=== PATIENT | female | born 1965 | race Caucasian/White ===

== ENCOUNTER 2017-11-12 10:11 | Outpatient (REF) | payer OTHER, SELFPAY ==
[2017-11-12 21:32] LABS: ALT 97 U/L (12-78); AST 51 U/L (15-37); Albumin 4.2 g/dL (3.4-5.0); Alkaline Phosphatase 166 U/L (46-116); Anion Gap 10.4 mmol/L (3-11); BUN 10 mg/dL (7-18); Bilirubin, Total 0.6 mg/dL (0.2-1.0); CO2 27.6 mmol/L (21.0-32.0); CREATININE 0.84 mg/dL (0.55-1.02); Calcium 10.7 mg/dL (8.5-10.1); Chloride 104 mmol/L (98-107); Glucose 94 mg/dL (70-100); Sodium 142 mmol/L (136-145); Total Protein 7.4 g/dL (6.4-8.2)
== END 2017-11-12 10:12 ==
LOC: NCHCN 10:11
PROVIDERS: PCP Physician Assistant; Visit Provider Physician Assistant Medical
DX: I10 Essential (primary) hypertension (principal); R79.89 Other specified abnormal findings of blood chemistry
CPT/HCPCS: 80053

== ENCOUNTER 2018-05-26 13:48 | Outpatient (REF) | payer OTHER, SELFPAY ==
[2018-05-26 18:41] LABS: TSH 3.18 uIU/mL (0.358-3.74)
== END 2018-05-26 14:08 ==
LOC: NCHCN 13:48
PROVIDERS: PCP Physician Assistant; Visit Provider Physician Assistant Medical
DX: E03.9 Hypothyroidism, unspecified (principal)
CPT/HCPCS: 84443

== ENCOUNTER 2018-11-25 10:52 | Outpatient (REF) | payer OTHER, SELFPAY ==
[2018-11-25 20:56] LABS: ALT 94 U/L (12-78); AST 51 U/L (15-37); Alkaline Phosphatase 175 U/L (46-116); Anion Gap 8.4 mmol/L (3-11); BUN 10 mg/dL (7-18); Bilirubin, Total 0.5 mg/dL (0.2-1.0); CO2 28.6 mmol/L (21.0-32.0); CREATININE 0.74 mg/dL (0.55-1.02); Calcium 11.1 mg/dL (8.5-10.1); Calculated LDL 125 mg/dL; Chloride 105 mmol/L (98-107); Cholesterol 204 mg/dL (50-200); Glucose 89 mg/dL (70-100); HDL Cholesterol 57 mg/dL (40-60); Potassium 4.4 mmol/L (3.5-5.1); Sodium 142 mmol/L (136-145); TSH (W/Ref FT4) 1.93 uIU/mL (0.36-3.74); Total Protein 7.2 g/dL (6.4-8.2); Triglyceride 112 mg/dL (30-150)
== END 2018-11-25 11:12 ==
LOC: NCHCN 10:52
PROVIDERS: PCP Physician Assistant; Visit Provider Nurse Practitioner Family
DX: I10 Essential (primary) hypertension (principal); R79.89 Other specified abnormal findings of blood chemistry; E03.9 Hypothyroidism, unspecified; Z13.220 Encounter for screening for lipoid disorders
CPT/HCPCS: 80053; 80061; 83721; 84443

== ENCOUNTER 2020-02-07 11:37 | Outpatient (REF) | payer OTHER, SELFPAY ==
[2020-02-07 19:58] LABS: ALT 59 U/L (14-59); AST 37 U/L (15-37); Albumin 4.2 g/dL (3.4-5.0); Alkaline Phosphatase 207 U/L (46-116); BUN 13 mg/dL (7-18); CREATININE 0.85 mg/dL (0.55-1.02); Calcium 11.4 mg/dL (8.5-10.1); Calculated LDL 142 mg/dL (<100); Chloride 105 mmol/L (98-107); Cholesterol 220 mg/dL (<200); Glucose 87 mg/dL (74-106); HDL Cholesterol 56 mg/dL (40-60); Potassium 4.6 mmol/L (3.5-5.1); Sodium 138 mmol/L (136-145); TSH 1.99 uIU/mL (0.36-3.74); Total Protein 7.5 g/dL (6.4-8.2); Triglyceride 113 mg/dL (<150)
[2020-02-07 20:14] LABS: Hemoglobin A1C 5.5 % (<5.7)
[2020-02-07 21:52] LABS: Bilirubin, Total 0.4 mg/dL (0.2-1.0)
== END 2020-02-07 11:57 ==
LOC: NCHCN 11:37
PROVIDERS: PCP Physician Assistant; Visit Provider Nurse Practitioner Family
DX: Z13.220 Encounter for screening for lipoid disorders (principal); I10 Essential (primary) hypertension; E03.9 Hypothyroidism, unspecified; R73.09 Other abnormal glucose
CPT/HCPCS: 80053; 80061; 83036; 84443

== ENCOUNTER 2020-07-12 12:59 | Outpatient (REF) | payer OTHER, SELFPAY | END 2020-07-12 13:00 | disposition home or self-care (01) | LOC: NCHCN 12:59 | PROVIDERS: PCP Physician Assistant; Visit Provider Internal Medicine | DX: N30.00 Acute cystitis without hematuria (principal) | CPT/HCPCS: 87086 ==

== ENCOUNTER 2020-10-31 20:12 | Outpatient (REF) | payer OTHER, SELFPAY ==
[2020-10-31 19:59] LABS: Bilirubin Negative (Negative); Blood Negative (Negative); Clarity Clear (Clear); Glucose Negative (Negative); Ketones Negative (Negative); Leukocyte Esterase Trace (Negative); Nitrite Negative (Negative); Urobilinogen 0.2 EU/dL (Up TO 0.2); pH 7.5 (5-8)
[2020-10-31 20:08] LABS: Bacteria Rare HPF (Negative); C & S Indicated? Yes; Casts Negative LPF (Negative); Crystals Negative HPF (Negative); Epithelial Cells Rare HPF (Negative); Mucus Negative (Negative); RBC Negative HPF (0-2); WBC 0-2 HPF (0-5)
== END 2020-10-31 20:13 | disposition home or self-care (01) ==
LOC: NCHCN 20:12
PROVIDERS: PCP Physician Assistant; Visit Provider Nurse Practitioner Family
DX: R30.0 Dysuria (principal)
CPT/HCPCS: 81003; 81015; 87086

== ENCOUNTER 2021-02-01 14:58 | Outpatient (REF) | payer OTHER, SELFPAY ==
[2021-02-01 20:10] LABS: ALT 63 U/L (14-59); AST 36 U/L (15-37); Albumin 4.2 g/dL (3.4-5.0); Alkaline Phosphatase 204 U/L (46-116); Anion Gap 7.4 mmol/L (3-11); BUN 11 mg/dL (7-18); Bilirubin, Total 0.6 mg/dL (0.2-1.0); CO2 29.6 mmol/L (21.0-32.0); CREATININE 0.7 mg/dL (0.55-1.02); Calculated LDL 123 mg/dL (<100); Chloride 105 mmol/L (98-107); Cholesterol 205 mg/dL (<200); Glucose 86 mg/dL (74-106); HDL Cholesterol 64 mg/dL (40-60); Potassium 4.8 mmol/L (3.5-5.1); Sodium 142 mmol/L (136-145); TSH (W/Ref FT4) 1.48 uIU/mL (0.36-3.74); Total Protein 7.5 g/dL (6.4-8.2); Triglyceride 94 mg/dL (<150)
[2021-02-01 20:27] LABS: Calcium 11.6 mg/dL (8.5-10.1)
== END 2021-02-01 14:59 | disposition home or self-care (01) ==
LOC: NCHCN 14:58
PROVIDERS: PCP Physician Assistant; Visit Provider Nurse Practitioner Family
DX: I10 Essential (primary) hypertension (principal); E03.9 Hypothyroidism, unspecified
CPT/HCPCS: 80053; 80061; 84443

== ENCOUNTER 2021-06-21 16:45 | Outpatient (REF) | payer OTHER, SELFPAY | END 2021-06-21 16:46 | disposition home or self-care (01) | LOC: NCHCN 16:45 | PROVIDERS: PCP Physician Assistant; Visit Provider Nurse Practitioner Family | DX: R39.15 Urgency of urination (principal); B37.0 Candidal stomatitis | CPT/HCPCS: 87070; 87086 ==

== ENCOUNTER 2021-09-18 19:28 | Outpatient (REF) | payer OTHER, SELFPAY ==
--- OUTSIDE RECORDS SUMMARY | 2021-09-18 19:31 | XMS_ITS ---
:1965 Author Care Team Providers Name Role Phone TIFFANY ESPARZA MD General Surgeon Unavailable CHE HENNING NP Primary Care Provider [phone] UTNG MEHTA MD Primary Care Provider [phone] Allergies Code Code System Name Reaction Severity Status Onset 20340718 RxNorm Compazine Confusion Severe Active 07/13/2021 1406 RxNorm Benzoin Rash ? Active ? 221445 RxNorm Cipro ? ? Active ? 2670 RxNorm Codeine ? ? Active ? 1010013 RxNorm Latex Hives ? Active ? Rash ? Active ? 444658 RxNorm Levaquin Rash ? Active ? 610180 RxNorm Macrobid ? ? Active ? Sulfa (Sulfonamide ? ? Active ? Antibiotics) 35252 RxNorm Tetracaine Rash ? Active ? Medications Name Status Start Date Stop Date ? ? amoxicillin 250 mg capsule Completed ? 12/11 TAKE ONE CAPSULE BY MOUTH THREE TIMES A DAY FOR 4 DAYS amoxicillin 500 mg capsule Completed ? 12/11 TAKE ONE CAPSULE BY MOUTH THREE TIMES A DAY FOR 10 DAYS bisoprolol fumarate 10 mg tablet Completed ? 12/11/2020 bisoprolol fumarate 5 mg tablet Completed ? 12/04/2017 Calcium 600 + D(3) 600 mg-10 mcg (400 unit) tablet Active ? Not available Take by oral route. Cipro 250 mg tablet Completed 07/04/2004 07/04/2004 1 (one) Tablet: BID Compazine 10 mg tablet Completed ? Take 1 tablet every 6 hours by oral route as needed. Dilaudid 2 mg tablet Completed ? 08/08/2021 Take 2 tablets every 4 hours by oral route as needed. doxycycline hyclate 100 mg tablet Completed ? 12/04/2017 Elderberry Active ? Not available fluoxetine 20 mg capsule Completed ? 021 Take 1 mg every day by oral route for 90 days. hydrochlorothiazide 12.5 mg tablet Completed ? 12/04/2017 hydrochlorothiazide 25 mg tablet Completed ? 12/11/2020 Take 1 tablet every day by oral route for 90 days. ibuprofen 800 mg tablet Active ? Not avai lable Take 1 tablet every 8 hours by oral route as needed. Imitrex 25 mg tablet Completed 03/16/2004 05/17/2005 2 (two) Tablet: QD Keflex 500 mg capsule Completed 07/04/2004 04/29/2005 1 Cap: QID levothyroxine 112 mcg tablet Active ? Not available TAKE ONE TABLET BY MOUTH EVERY DAY lorazepam 0.5 mg tablet Active ? Not avai lable TAKE ONE TABLET BY MOUTH TWICE A DAY NEEDED FOR ANXIETY losartan 25 mg tablet Completed ? 12/11/2020 TAKE ONE TABLET BY MOUTH EVERY DAY metoprolol succinate ER 100 mg tablet,extended release 24 hr Act solis ? Not available TAKE ONE TABLET BY MOUTH EVERY DAY metoprolol succinate ER 50 mg tablet,extended release 24 hr Comp leted ? 12/11/2020 TAKE ONE TABLET BY MOUTH EVERY MORNING metoprolol tartrate 50 mg tablet Completed ? 12/11/2020 TAKE ONE TABLET BY MOUTH TWICE A DAY nitrofurantoin monohydrate/macrocrystals 100 mg capsule Complete d ? 12/11/2020 TAKE ONE CAPSULE BY MOUTH TWICE A DAY FOR 5 DAYS [place] 7.5 mg-325 mg tablet Completed 02/06/201206/16 1 Tablet: every six hours, as needed ondansetron 4 mg disintegrating tablet Completed ? 12/11/2020 Ortho Micronor 0.35 mg tablet Completed 07/30/2005 1 (one) Tablet: Daily oxybutynin chloride 5 mg tablet Completed ? 12/11/2020 TAKE ONE TABLET BY MOUTH TWICE A DAY oxybutynin chloride ER 10 mg tablet,extended release 24 hr Compl eted ? 12/11/2020 TAKE ONE TABLET BY MOUTH EVERY DAY pantoprazole 20 mg tablet,delayed release Active ? Not available TAKE ONE TABLET BY MOUTH EVERY DAY NEEDED phenazopyridine 200 mg tablet Completed ? TAKE ONE TABLET BY MOUTH THREE TIMES A DAY NEEDED FOR URINAR Y DISCOMFORT Reglan 10 mg tablet Completed 12/17/2011 05/17/2016 1 Tablet: tid - three times a day prn spironolactone 25 mg tablet Completed ? 11/14 TAKE ONE TABLET BY MOUTH EVERY DAY spironolactone 50 mg tablet Active ? Not available TAKE ONE TABLET BY MOUTH EVERY MORNING sucralfate 1 gram tablet Completed ? 021 tamsulosin 0.4 mg capsule Active ? Not av ailable Take 1 capsule every day by oral route for 10 days. Topicort 0.25 % topical ointment Completed 07/25/2009 01/31/2010 1 (one) Application(s): twice daily tramadol 50 mg tablet Completed ? 12/11/2020 triamcinolone acetonide 0.1 % topical cream Completed ? 12/11/2020 APPLY TOPICALLY TO AFFECTED AREA S OF UMBILICUS TWO TIMES A DAY Tylenol-Codeine #3 300 mg-30 mg tablet Completed 5 05/17/2005 1 (one) Tablet: Q4-6 hours PRN Problems Name Status Onset Date Source ? Gastroesophageal Reflux Disease Active 12/04/2017 ? Hypothyroidism Active ? History Migraine Active ? History Seasonal Allergic Rhinitis Active ? Histo ry Acute Vaginitis Active ? History Female Genital Organ Symptoms Active ? Hi story Idiopathic Osteoarthritis Active ? Histor y Arthralgia of the Ankle And/or Foot Active ? History Plantar Fascial Fibromatosis Active ? His tory Nausea Active ? History Urinary Incontinence Active ? History Traumatic Dislocation of Knee Joint Active ? History Hyperlipidemia Screening Active ? History Specialized Medical Examination Active ? History Pain of Left Shoulder Joint Active ? Hist ory Long-term Current Use of Drug Therapy Active ? History Procedures Date Name Performed by ? 02/27/2012 EGD/Endoscopy Information not avai lable Notes: mild hiatal hernia, antral gastritis, duodenitis of bulb. 2009 sm hiatal hernia. 2004 severe gastritis. 02/06/2012 Knee Arthroscopy/surgery Information not available Notes: with medial femoral condyle cho ndroplasty 04/11/2010 Total Vaginal Hysterectomy Information n ot available Notes: LAVH with TVT 04/14/2005 Colonoscopy Information not avai lable Notes: normal 02/25/2005 Carpal Tunnel Release Open Information n ot available Notes: Right 07/24/2004 Laparoscopy Information not avai lable Notes: Evacuation Pelvic Hematoma 06/21/2004 Oophorectomy Information not avai lable Notes: Laparoscopic left oophorectomy 04/08/2001 Cholecystectomy Information not avai lable 04/14/1984 Appendectomy Information not avai lable ? Parathyroidectomy Information not avai lable Notes: right tumor removed ? Tonsillectomy Information not avai lable Notes: age 16 12/11/2020 XR, Knee, 4 or More View [facility] [address] [place] [address] (Work Place) Results Lab Results Date Name Specimen Result Interpretation Description Value Range Status Address ? 08/22/2021 Creatinine, UR ? Vol, 24HR 1380 mL ? Fin al [facility] (Internal[facility] : [address] ? ? UR ? Crea, U 111 mg/dL 3-125 Final [facility] mg/dL [facility] (Internal) : [address] ? ? UR ? Crea, 1529 600-25 Corrected [facility] 24HR U mg/24HR 00 [facility] mg/24H Hospital L ab R (Internal) : [address] 08/22/2021 Magnesium, UR ? Vol, 24HR 1380 mL ? Geovanna l [facility] (Internal[facility] : [address] ? ? UR ? mg, U 10.6 1.0-13 Final [facility] mg/dL .0 [facility] mg/dL Hospital L ab (Internal) : [address] ? ? UR ? mg, 24HR 146 24-255 Corrected Nort h U mg/24HR mg/24H [facility] R [facility] L ab (Internal) : [address] 08/22/2021 Phosphorus, UR ? Vol, 24HR 1380 mL ? Fin al [facility] ([facility] : [address] ? ? UR High Phos, U 106.7 20.0-6 Final [facility] mg/dL 0.0 [facility] mg/dL Hospital L ab (Internal) : [address] ? ? UR High Phos, 1472 400-13 Corrected [facility] 24HR U mg/24HR 00 [facility] mg/24H Hospital L ab R (Internal) : [address] 08/22/2021 Calcium, UR ? Vol, 24HR 1380 mL ? Final [facility] : [address] ? ? UR High Ca, U 25.8 2.0-18 Final [facility] mg/dL .0 [facility] mg/dL Hospital L ab (Internal) : [address] ? ? UR High Ca, 24HR 356 42-353 Corrected Nort h U mg/24HR mg/24H [facility] R [facility] L [facility] (Internal) : [address] 08/22/2021 Sodium, UR ? Vol, 24HR 1380 mL ? Final [facility] : [address] ? ? UR High Na, U 117 20-110 Final [facility] mmol/L mmol/L [facility] (Internal) : [address] ? ? UR ? Na, 24HR 161 40-220 Corrected Nort h U mmol/24h mmol/2 [facility] 4h Hospital L ab (Internal) : [address] 08/22/2021 Uric Acid, UR ? Vol, 24HR 1380 mL ? Geovanna l [facility] : [address] ? ? UR ? Uric 46.3 ? Final North Acid, U mg/dL [facility] (Internal) : [address] ? ? UR ? Urca, 639 150-99 Final North 24HR U mg/24HR 0 [facility] mg/24H Hospital L ab R (Internal) : [address] 08/22/2021 Oxalate, UR ? Oxalate, 0.22 0.11 - Final N orth Quantitative 24 hr, U mmol/24 h 0.46 [facility] , 24-Hour (Mmol/24 mmol/2 [facility] Urine hr) 4 h (Internal) : [address] ? ? UR ? Oxalate, 19.4 9.7 - Final [facility] 24 hr, U mg/24 h 40.5 [facility] (mg/24 hr) mg/24 Hospit al Lab h (Internal) : [address] ? ? UR ? Collectio 24 h ? Final [facility] n Duration Countr y Hospital L ab (Internal) : [address] ? ? UR ? Urine 1380 mL ? Final [facility] Volume [facility] (Internal[facility] : [address] 08/22/2021 Citrate, UR High Citrate 1232 406 - Final No rth Quantitative Excretion, mg/24 h 1191 [facility] , 24-Hour 24 hr, U mg/24 [facility] Urine h (Internal) : [address] t ? ? UR ? Collectio 24 h ? Final [place] n Duration Countr y Hospital L ab (Internal) : [address] t ? ? UR ? Urine 1380 mL ? Final [place] Volume [facility] L [facility] (Internal) : [address] 08/08/2021 Culture UR ? Final microbiol ? Final No rth ([place] [facility]), results Hospital Lab Urine (Internal) : [address] 08/08/2021 Urinalysis, Urine ? Color Yellow ? ? P _urology: Dipstick, clean 41 Medi mary Reflex Micro catch [facility] ? ? Urine ? Appearanc Slightly ? ? P_ur ology: clean e Cloudy 41 [facility] ? ? Urine ? Glucose Normal ? ? P_urolog y: clean 41 [facility] ? ? Urine ? Bilirubin Negative ? ? P_ur ology: clean 41 [facility] ? ? Urine ? Ketones Negative ? ? P_urol ogy: clean 41 [facility] ? ? Urine ? Specific 1.015 ? ? P_urolo gy: clean Counce 41 [employer] [facility] ? ? Urine ? Blood Negative ? ? P_urolog y: clean 41 [facility] ? ? Urine ? Ph 6.5 ? ? P_urology: clean 41 [facility] ? ? Urine ? Protein Negative ? ? P_urol ogy: clean 41 [facility] ? ? Urine ? Urobilino 0.2 ? ? P_urol ogy: clean gen 41 [facility] ? ? Urine ? Nitrite negative ? ? P_urol ogy: clean 41 [facility] ? ? Urine ? Leukocyte Trace ? ? P_urol ogy: clean Esterase 41 Medic al [employer] [facility] 07/17/2021 Urinalysis, UR ? UA-color pale pale Final [place] Dipstick, yellow yellow [facility] Reflex Micro Hosp ital Lab (Internal) : [address] [place] ? ? UR ? UA-appear clear clear Final [facility] L ab (Internal) : [address] [place] ? ? UR ? UA-spec 1.010 1.003- Final [place] Grav 1.035 [facility] L [facility] (Internal) : [address] [place] ? ? UR ? UA-pH 7.0 [pH] 4.6-8. Final [place] 0 [pH] [facility] L ab (Internal) : [address] [place] ? ? UR ABNORMA UA-leuk small negati Final [facility] (Internal) : [address] [place] ? ? UR ? UA-nitrit negative negati Final [facility] L ab (Internal) : [address] [place] ? ? UR ? UA-prot negative negati Final [facility] ab (Internal) : [address] [place] ? ? UR ? UA-gluc negative negati Final [facility] ab (Internal) : [address] [place] ? ? UR ? UA-ketone negative negati Final [facility] L ab (Internal) : [address] [place] ? ? UR ? UA-urobil normal normal Final [facility] ab (Internal) : [address] [place] ? ? UR ? UA-bili negative negati [facility] ab (Internal) : [address] ? ? UR ? UA-blood negative negati Final [facility] ab (Internal) : [address] t 07/17/2021 Urinalysis, UR ABNORMA UA-WBC 5-10 0-3 Final [place] Microscopic L [hpf] [hpf] Count Hospital L ab (Internal) : [address] t ? ? UR ? UA-RBC 0-2 [hpf] 0-2 Final [place] [hpf] [facility] (Internal) : [address] t ? ? UR ABNORMA UA-bacter few [hpf] none Final No rth L ia seen [facility] [hpf] Hospital L ab (Internal) : [address] t ? ? UR ABNORMA UA-epithe few [hpf] none Final No rth L lial seen Country [hpf] Hospital L ab (Internal) : [address] t ? ? UR ? UA-mucus none seen none Final Nort h [hpf] seen Country [hpf] Hospital ab (Internal) : [address] 07/17/2021 Culture UR ? Final microbiol ? Final No rth ([place] [facility]), results Hospital Lab Urine (Internal) : [address] 07/19/2020 Urinalysis, UR ? UA-color yellow pale Final [place] Dipstick, yellow [facility] Reflex Micro Hosp ital Lab (Internal) : [address] t ? ? UR ? UA-appear clear clear Final [facility] ab (Internal) : [address] t ? ? UR ? UA-spec 1.020 1.003- Final [place] Grav 1.035 [facility] ab (Internal) : [address] t ? ? UR ? UA-pH 6.5 [pH] 4.6-8. Final [place] 0 [pH] [facility] ([facility] : [address] t ? ? UR ABNORMA UA-leuk small negati Final [facility] ab (Internal) : [address] t ? ? UR ? UA-nitrit negative negati Final [facility] ab (Internal) : [address] t ? ? UR ? UA-prot negative negati Final [facility] ab (Internal) : [address] ? ? UR ? UA-gluc negative negati Final [facility] ab (Internal) : [address] ? ? UR ? UA-ketone negative negati Final [facility] (Internal) : [address] ? ? UR ? UA-urobil normal normal Final [facility] (Internal) : [address] t ? ? UR ? UA-bili negative negati Final [facility] ab (Internal) : [address] ? ? UR ABNORMA UA-blood trace negati Final [facility]Internal[facility] : [address] 07/19/2020 Urinalysis, UR ABNORMA UA-WBC 3-5 [hpf] 0-3 Fin al [facility] Microscopic L [hpf] Count ry Hospital L ab (Internal) : [address] t ? ? UR ? UA-RBC 0-2 [hpf] 0-2 Final North [hpf] [facility] (Internal) : [address] t ? ? UR ? UA-bacter none seen none Final Nor th ia [hpf] seen Country [hpf] Hospital L ab (Internal) : [address] t ? ? UR ABNORMA UA-epithe few [hpf] none Final No rth L lial seen Country [hpf] Hospital L ab (Internal) : [address] t ? ? UR ? UA-mucus none seen none Final Nort h [hpf] seen [facility] [hpf] Hospital L ab (Internal) : [address] 07/19/2020 CBC W/ Auto BLD High Wbc 12.2 5.0-10 Final N orth Diff 10*3/uL .0 [facility] 10*3/u Hospital L ab L (Internal) : [address] t ? ? BLD High Rbc 5.45 4.10-5 Final North 10*6/uL .30 [facility] 10*6/u Hospital L ab L (Internal) : [address] t ? ? BLD High Hgb 16.6 g/dL 12.0-1 Final [place] 6.0 [facility] g/dL Hospital L ab (Internal) : [address] t ? ? BLD High Hct 49.2 % 37.0-4 Final [place] 7.0 % [facility] (Internal) : [address] t ? ? BLD ? Mcv 90.3 fL 80.0-9 Final [place] 6.0 fL [facility] (Internal) : [address] t ? ? BLD ? Mch 30.5 pg 26.0-3 Final [place] 2.0 pg [facility] (Internal) : [address] ? ? BLD ? Mchc 33.7 g/dL 31.0-3 Final North 5.0 [facility] g/dL Hospital L ab (Internal) : [address] ? ? BLD ? Rdw 12.3 % 11.5-1 Final [facility] 4.5 % [facility] L ab (Internal) : [address] ? ? BLD ? Plt 233 130-45 Final North 10*3/uL 0 [facility] 10*3/u Hospital L ab L (Internal) : [address] [place] ? ? BLD ? Anc 7.84 ? Final [facility] 10*3/uL [facility] L [facility] (Internal) : [address] [place] [address] ? ? BLD ? Nlr 2.57 0.00-3 Final North .20 [facility] L [facility] (Internal) : [address] ? ? BLD ? Neutro 64.5 % 40.0-7 Final [facility] 5.0 % [facility] L [facility] (Internal) : [address] ? ? BLD ? Lymph 25.1 % 20.0-5 Final [facility] 0.0 % [facility] L [facility] (Internal) : [address] ? ? BLD ? Galax 8.9 % 2.0-10 Final North .0 % [facility] L [facility] (Internal) : [address] [place] ? ? BLD Low Eos 0.7 % 1.0-6. Final [facility] 0 % [facility] L [facility] (Internal) : [address] ? ? BLD ? Baso 0.5 % 0.0-1. Final [facility] 0 % [facility] L [facility] (Internal) : [address] ? ? BLD ? Ig 0.3 % 0.0-0. Final [facility] 9 % [facility] L [facility] (Internal) : [address] 07/19/2020 Lactic Acid, S ? La 1.0 0.7-2. Final North Blood mmol/L 1 [facility] mmol/L Hospital L ab (Internal) : [address] t 07/19/2020 CMP, Serum S ? g/r 98 mg/dL 74-106 Final North or Plasma mg/dL [facility] (Internal) : [address], [place] ? ? S ? Bun 12 mg/dL 7-17 Final [facility] mg/dL [facility] L [facility] (Internal) : [address] t ? ? S Low Crea 0.50 0.52-1 Final [facility] mg/dL .04 [facility] mg/dL Hospital L ab (Internal) : [address] t ? ? S High Ca 11.6 8.4-10 Final [facility] mg/dL .2 [facility] mg/dL Hospital L ab (Internal) : [address] t ? ? S ? Na 143 137-14 Final [facility] mmol/L 5 [facility] mmol/L Hospital L ab (Internal) : [address] t ? ? S ? K 4.3 3.5-5. Final [facility] mmol/L 1 [facility] mmol/L Hospital L ab (Internal) : [address] t ? ? S ? Cl 105 98-107 Final [facility] mmol/L mmol/L [facility] L [facility] (Internal) : [address] t ? ? S ? Tco2 25.0 22.0-3 Final [facility] mmol/L 0.0 [facility] mmol/L Hospital L ab (Internal) : [address] t ? ? S ? Tp 7.5 g/dL 6.3-8. Final North 2 g/dL [facility] (Internal) : [address] t ? ? S ? Alb 4.5 g/dL 3.5-5. Final [facility] 0 g/dL [facility] (Internal) : [address] t ? ? S ? Tbil 0.6 mg/dL 0.2-1. Final North 3 [facility] mg/dL Hospital L ab (Internal) : [address] t ? ? S High Alp 213 U/L 50-136 Final [facility] U/L [facility] L [facility] (Internal) : [address] t ? ? S High Alt 98 U/L 9-52 Final [facility] (Sgpt) U/L [facility] L [facility] (Internal) : [address] t ? ? S High Ast 65 U/L 14-36 Final North (Sgot) U/L [facility] L [facility] (Internal) : [address] 07/19/2020 Lipase, S ? Lip 124 U/L 23-300 Final Nort h Serum or U/L [facility] Plasma Hospital L ab (Internal) : [address] 07/19/2020 Culture UR ? Final microbiol ? Final No rth ([place] [facility]), results Hospital Lab Urine (Internal) : [address] 12/03/2017 CBC W/ Auto BLD - Wbc 8.1 5.0-10 Final N orth Diff 10*3/uL .0 [facility] 10*3/u Hospital L ab L (Internal) : [address] mar ? ? BLD High Rbc 5.37 4.10-5 Final [facility] 10*6/uL .30 [facility] 10*6/u Hospital L ab L (Internal) : [address] mar ? ? BLD High Hgb 16.3 g/dL 12.0-1 Final [place] 6.0 [facility] g/dL Hospital L ab (Internal) : [address] mar ? ? BLD High Hct 47.9 % 37.0-4 Final [facility] 7.0 % [facility] L [facility] (Internal) : [address] ? ? BLD - Mcv 89.2 fL 80.0-9 Final [place] 6.0 fL [facility] L [facility] (Internal) : [address] ? ? BLD - Mch 30.4 pg 26.0-3 Final [place] 2.0 pg [facility] L [facility] (Internal) : [address] mar ? ? BLD - Mchc 34.0 g/dL 31.0-3 Final North 5.0 [facility] g/dL Hospital L ab (Internal) : [address] mar ? ? BLD - Rdw 12.4 % 11.5-1 Final [facility] 4.5 % [facility] (Internal) : [address] mar ? ? BLD - Plt 213 130-45 Final [facility] 10*3/uL 0 [facility] 10*3/u Hospital L ab L (Internal) : [address] ? ? BLD - Anc 5.18 ? Final [facility] 10*3/uL [facility] L [facility] (Internal) : [address] ? ? BLD - Neutro 64.0 % 40.0-7 Final [facility] 5.0 % [facility] L [facility] (Internal) : [address] ? ? BLD - Lymph 26.5 % 20.0-5 Final [facility] 0.0 % [facility] L [facility] (Internal) : [address] ? ? BLD - Galax 8.4 % 2.0-10 Final North .0 % [facility] L [facility] (Internal) : [address] ? ? BLD Low Eos 0.4 % 1.0-6. Final [facility] 0 % [facility] L [facility] (Internal) : [address] ? ? BLD - Baso 0.5 % 0.0-1. Final [facility] 0 % [facility] L [facility] (Internal) : [address] ? ? BLD - Ig 0.2 % 0.0-0. Final [facility] 9 % [facility] L [facility] (Internal) : [address] 12/03/2017 CMP, Serum S - g/r 104 mg/dL 74-106 Final North or Plasma mg/dL [facility] L [facility] (Internal) : [address] ? ? S - Bun 12 mg/dL 7-17 Final [facility] mg/dL [facility] L [facility] (Internal) : [address] ? ? S - Crea 0.70 0.52-1 Final [facility] mg/dL .04 [facility] mg/dL Hospital L ab (Internal) : [address] ? ? S High Ca 11.5 8.4-10 Final [facility] mg/dL .2 [facility] mg/dL Hospital L ab (Internal) : [address] t ? ? S - Na 139 137-14 Final [facility] mmol/L 5 [facility] mmol/L Hospital L ab (Internal) : [address] ? ? S - K 3.6 3.5-5. Final [facility] mmol/L 1 [facility] mmol/L Hospital L ab (Internal) : [address] ? ? S - Cl 105 98-107 Final [facility] mmol/L mmol/L [facility] L [facility] (Internal) : [address] ? ? S - Tco2 25.0 22.0-3 Final [place] mmol/L 0.0 [facility] mmol/L Hospital L ab (Internal) : [address] ? ? S - Tp 8.0 g/dL 6.3-8. Final [place] 2 g/dL [facility] L [facility] (Internal) : [address] ? ? S - Alb 4.7 g/dL 3.5-5. Final [place] 0 g/dL [facility] L [facility] (Internal) : [address] ? ? S - Tbil 1.0 mg/dL 0.2-1. Final [place] 3 [facility] mg/dL Hospital L ab (Internal) : [address] ? ? S - Alp 129 U/L 50-136 Final [place] U/L [facility]Internal) : [address] ? ? S High Alt 120 U/L 9-52 Final [place] (Sgpt) U/L [facility] L [facility] (Internal) : [address] ? ? S High Ast 118 U/L 14-36 Final [place] (Sgot) U/L [facility] L [facility] (Internal) : [address] 12/03/2017 Lipase, S - Lip 83 U/L 23-300 Final [place] Serum or U/L [facility] Plasma [facility] L ab (Internal) : [address] 12/03/2017 D-dimer, PLASMA - Dimq <0.19 0.00-0 Final Nort h Quant, mg/L .50 [facility] Plasma mg/L Hospital L ab (Internal) : [address] Past Encounters 08/08/2021 Ureteric Stone; Kidney Stone; Pyuria; Mo rbid Obesity Bandar Garcia MD: [address] [place] [address], Ph. 07/17/2021 Lower Abdominal Pain Franck Sauceda MD: [address] [place] [phone], Ph. 12/11/2020 Pain in Right Knee Clyde Philippe MD: [address] [place] [address], [address], [place] [address], Ph. Social History Tobacco Smoking Status Never Smoker Vaccine List Vaccine Type COVID-19, mRNA, LNP-S, PF, 100 mcg/0.5 m L dose (Moderna) 06/29/2020?0.5 mL 07/27/2020?100 mcg influenza, seasonal, injectable Td (adult), adsorbed Plan of Care Reminders Provider Appointments None recorded. ? ? Lab None recorded. ? ? Referral None recorded. ? ? Procedures None recorded. ? ? Surgeries None recorded. ? ? Imaging None recorded. ? ? Vitals 08/08/2021 02:00PM Office 20 Height Weight BMI Blood Pressure 168.91 cm 133.81 kg 46.9 kg/m2 197/123 mm[Hg] 07/17/2021 03:00PM Office 20 Height Weight BMI Blood Pressure 170.18 cm 131.54 kg 45.4 kg/m2 156/90 mm[Hg] 12/11/2020 02:30PM Office 30 Height Weight BMI 170.18 cm 128.28 kg 44.3 kg/m2 05/17/2016 Height Weight Blood Pressure 170.18 cm 113.4 kg 150/84 mm[Hg] 06/16/2012 Height Weight Blood Pressure 170.18 cm 108.18 kg 146/100 mm[Hg] 02/18/2012 Height Weight Blood Pressure 170.18 cm 100.92 kg 147/76 mm[Hg] 01/17/2012 Height Weight Blood Pressure 170.18 cm 100.92 kg 145/79 mm[Hg] 04/24/2011 Height Weight Blood Pressure 170.18 cm 100.92 kg 146/80 mm[Hg] 05/22/2010 Height Weight Blood Pressure 170.18 cm 95.25 kg 140/70 mm[Hg] 04/03/2010 Weight Blood Pressure 93.89 kg 150/90 mm[Hg] 03/19/2010 Blood Pressure 155/106 mm[Hg] 02/16/2010 Height Weight Blood Pressure 170.18 cm 95.25 kg 142/90 mm[Hg] 01/31/2010 Weight Blood Pressure 98.43 kg 150/90 mm[Hg] 07/25/2009 Height Weight Blood Pressure 170.18 cm 93.44 kg 120/78 mm[Hg] 01/03/2009 Weight Blood Pressure 90.26 kg 120/78 mm[Hg] 12/22/2008 Height Weight Blood Pressure 170.18 cm 90.72 kg 140/80 mm[Hg] 12/31/2007 Height Weight Blood Pressure 166.37 cm 86.18 kg 138/72 mm[Hg] 12/17/2007 Height Weight Blood Pressure 171.45 cm 85.28 kg 120/88 mm[Hg] 09/10/2007 Weight Blood Pressure 85.28 kg 134/98 mm[Hg] 10/27/2006 Weight Blood Pressure 84.37 kg 132/82 mm[Hg] 08/19/2006 Weight Blood Pressure 86.18 kg 128/90 mm[Hg] 05/17/2005 Height Weight Blood Pressure 171.45 cm 81.19 kg 110/62 mm[Hg] 06/20/2004 Height Weight Blood Pressure 170.18 cm 73.03 kg 120/80 mm[Hg] 06/11/2004 Blood Pressure 122/80 mm[Hg] 03/16/2004 Blood Pressure 130/88 mm[Hg] 02/21/2004 Blood Pressure 130/80 mm[Hg]
--- OUTSIDE RECORDS SUMMARY | 2021-09-18 19:31 | XMS_ITS | Encounter Summary ---
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 sensation of a tooth brush like bristles in vagina and sensation that she needs to void frequently. Exam was normal. No mesh erosion was se en in vagina. She was informed of exam findings and reassured. GI issues resulting in her pain were also discussed and she will f/u with PCP with regard to this. Urine will be sent for UA, C&S and if ne gative and her symptoms persist then referral to urology will be made. 20 min visit 1. Lower abdominal pain Discussion Note: None recorded.Patient educational handouts: No information available. Plan of Care Reminders Provider Appointments None recorded. ? ? Lab None recorded. ? ? Referral None recorded. ? ? Procedures None recorded. ? ? Surgeries None recorded. ? ? Imaging None recorded. ? ? Medications Name Start Date ? ? Calcium 600 + D(3) 600 mg-10 mcg (400 unit) tablet ? Take by oral route. Elderberry ? ibuprofen 800 mg tablet ? Take 1 tablet every 8 hours by oral route as needed. levothyroxine 112 mcg tablet ? TAKE ONE TABLET BY MOUTH EVERY DAY lorazepam 0.5 mg tablet ? TAKE ONE TABLET BY MOUTH TWICE A DAY NEEDED FOR AN XIETY metoprolol succinate ER 100 mg tablet,extended release 24 hr ? TAKE ONE TABLET BY MOUTH EVERY DAY pantoprazole 20 mg tablet,delayed release ? TAKE ONE TABLET BY MOUTH EVERY DAY NEEDED spironolactone 50 mg tablet ? TAKE ONE TABLET BY MOUTH EVERY MORNING tamsulosin 0.4 mg capsule ? Take 1 capsule every day by oral route for 10 days. Medications Administered None recorded. Vitals Height Weight BMI Blood Pressure 5 ft 7 in 290 lbs 45.4 kg/m2 156/90 mm[Hg] Results Lab Results None recorded. Allergies Code Code System Name Reaction Severity Onset 20340718 RxNorm Compazine Confusion Severe 07/13/2021 1406 RxNorm Benzoin Rash ? ? 398915 RxNorm Cipro ? ? ? 2670 RxNorm Codeine ? ? ? 8098330 RxNorm Latex Hives ? Rash ? ? 446303 RxNorm Levaquin Rash ? ? 260945 RxNorm Macrobid ? ? ? Sulfa (Sulfonamide ? ? ? Antibiotics) 35472 RxNorm Tetracaine Rash ? ? Problems Name Status Onset Date Source ? [...] Information not avai lable Notes: age 16 Vaccine List Vaccine Type COVID-19, mRNA, LNP-S, PF, 100 mcg/0.5 m L dose (Moderna) 06/29/2020?0.5 mL 07/27/2020?100 mcg influenza, seasonal, injectable Td (adult), adsorbed Social History Tobacco Smoking Status Never Smoker Are you currently employed? N Have you used IV drugs? N What is your code status? 0 How much tobacco do you chew? none What was the date of your most 12/05/2017 recent tobacco screening? Do you have an advanced N directive? Do you feel safe at home? 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 Notes : has had four children What is your level of alcohol None consumption? Did the fall result in an injury? 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 Family History Relation Problem Onset Age of Age Notes Father Heart disease (No Information) N/A (No Notes) Functional Status Unknown. Past Encounters 07/17/2021 Lower Abdominal Pain Franck Sauceda MD: [address] [place] [phone], Ph. History of Present Illness Note: <div>56 yo female with H/O LAVH and TVT 04/11/2010 presented with vague complains of abdominal/pelvic pain and ? sensation of a tooth brush like bristles in vagina and sensation that she needs to void frequently. On presentation she appears comfortable, denies any other issues. She reported that the abdominal/pelvic pain resolved after bowel movement.</div>Review of Systems: ROS as noted in the HPI Review of Systems None recorded. Physical Exam ? 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 Vagina: no tenderness, no erythema, no abnormal vagina l discharge, no vesicle(s) or ulcers, no cystocele, no rectocele, normal atrophy. Cervix: absent. Uterus: absent. Adnexa/Parametria: n o parametrial tenderness, no parametrial mass, no adnexal tenderness, no ovarian mass
--- OUTSIDE RECORDS SUMMARY | 2021-09-18 19:31 | XMS_ITS | Encounter Summary ---
:1965 Author Care Team Providers Name Role Phone Diana Torres NP Primary Care Provider [phone] Mariusz Arroyo MD Primary Care Provider [phone] Richard Benitez MD General Surgeon Unavailable Reason for Visit pt reports reason for visit is for their hx of kidney stones--pt reports I have white coat syndrome, pt reports they mo nitor their BP at home and have normal readings Assessment and Plan Assessment Note Call with progress report in 2 weeks an d once off tamsulosin, sooner as needed. Await 24 hour urine. Consider left ESWL vs URS if this stone has passed. 1. Ureteric stone 3.5 mm left distal ureteral calculus, p ossibly passed. She is unaware of having passed it but symptoms resolved coincide nt to starting tamsulosin. She is nervous about coming off of it. I recommended th at she take it for another week or two, then discontinue and contact us. If symptoms act up in the interval, then we know the stone is still present and she might con restaurant associate endoscopic intervention. At that time, the 4 mm stone could be addressed at the same time. If she has no symptoms after coming off tamsulosin, we will have to d o a pelvic CT to assure passage and exclude silent obstruction. Call for recurrent symptoms, otherwise in 2 weeks once off tamsulosin with a progress report. ? urinalysis, dipstick, reflex micro 2. Kidney stone 4 mm left intrarenal calculus for which ESWL can be considered electively (we will need to assess the skin to stone distanc e to consider whether or not efficacy is likely). Suggestive of metabolically act solis stone disease. 24-hour urine metabolic evaluation recommended. ? calcium, 24-hour urine ? citrate, quantitative, 24-hour urine ? magnesium, 24-hour urine ? phosphorus, 24-hour urine ? oxalate, quantitative, 24-hour urine ? sodium, 24-hour urine ? uric acid, 24-hour urine ? creatinine, 24-hour urine 3. Pyuria Likely voided contaminant, will exclude urinary tract infection. ? culture (colony count), urine 4. Morbid obesity Independent risk factor for nephrolithi asis. Complicates imaging and care. Discussion Note: None recorded.Patient educational handouts: No information available. Plan of Care Reminders Provider Appointments None recorded. ? ? Lab Urinalysis, Dipstick, 08/08/2021 P_urolog y Reflex Micro ? Culture ([place] Count), 08/08/2021 [facility] Lab Urine (Internal) ? Calcium, 24-Hour Urine 08/08/2021 [facility] Lab (Internal) ? Citrate, Quantitative, 08/08/2021 [facility] Lab 24-Hour Urine (Internal) ? Magnesium, 24-Hour Urine 08/08/2021 [facility] Lab (Internal) ? Phosphorus, 24-Hour Urine 08/08/2021 [facility] Lab (Internal) ? Oxalate, Quantitative, 08/08/2021 [facility] Lab 24-Hour Urine (Internal) ? Sodium, 24-Hour Urine 08/08/2021 [facility] Lab (Internal) ? Uric Acid, 24-Hour Urine 08/08/2021 [facility] Lab (Internal) ? Creatinine, 24-Hour Urine 08/08/2021 [facility] Lab (Internal) Referral None recorded. ? ? Procedures None [...] Height Weight BMI Blood Pressure 5 ft 6.5 in 295 lbs 46.9 kg/m2 197/123 mm[Hg] Results Lab Results Date Name Specimen Result Interpretation Description Value Range Status Address ? 08/22/2021 Creatinine, UR ? Vol, 24HR U 1380 mL ? F inal [place] 24-Hour [facility] (Internal) : [address] ? ? UR ? Crea, U 111 mg/dL 3-125 Final [facility] mg/dL [facility] (Internal) : [address] ? ? UR ? Crea, 24HR 1529 600-2 Corrected No rth U mg/24HR 500 [facility] mg/24 Hospital L ab HR (Internal) : [address] 08/22/2021 Magnesium, UR ? Vol, 24HR U 1380 mL ? Fi nal [place] 24[facility] (Internal) : [address] ? ? UR ? mg, U 10.6 mg/dL 1.0-1 Final [place] 3.0 [facility] mg/dL Hospital L ab (Internal) : [address] ? ? UR ? mg, 24HR U 146 mg/24HR 24-25 Correct ed [place] 5 [facility] mg/24 Hospital L ab HR (Internal) : [address] 08/22/2021 Phosphorus, UR ? Vol, 24HR U 1380 mL ? F inal [place] 24-Hour [facility] (Internal) : [address] ? ? UR High Phos, U 106.7 mg/dL 20.0- Final Nor th 60.0 [facility] mg/dL Hospital L ab (Internal) : [address] ? ? UR High Phos, 24HR 1472 400-1 Corrected No rth U mg/24HR 300 [facility] mg/24 Hospital L ab HR (Internal) : [address] 08/22/2021 Calcium, UR ? Vol, 24HR U 1380 mL ? Ge[place]anna l [place] [facility] (Internal) : [address] ? ? UR High Ca, U 25.8 mg/dL 2.0-1 Final [facility] 8.0 [facility] mg/dL Hospital L ab (Internal) : [address] ? ? UR High Ca, 24HR U 356 mg/24HR 42-35 Correct ed [facility] 3 [facility] mg/24 Hospital L ab HR (Internal) : [address] 08/22/2021 Sodium, UR ? Vol, 24HR U 1380 mL ? Final [facility] ([facility] : [address] ? ? UR High Na, U 117 mmol/L 20-11 Final [place] 0 [facility] mmol/ Hospital L ab L (Internal) : [address] ? ? UR ? Na, 24HR U 161 40-22 Corrected No rth mmol/24h 0 [facility] mmol/ Hospital L ab 24h (Internal) : [address] 08/22/2021 Uric Acid, UR ? Vol, 24HR U 1380 mL ? Fi nal [place] 24-[facility]our [facility] ([facility]) : [address] ? ? UR ? Uric Acid, 46.3 mg/dL ? Final N orth U [facility] (Internal) : [address] ? ? UR ? Urca, 24HR 639 mg/24HR 150-9 Final North U 90 [facility] mg/24 Hospital L ab HR (Internal) : [address] 08/22/2021 Oxalate, UR ? Oxalate, 24 0.22 0.11 Final [place] Quantitative hr, U mmol/24 h - C ountry , 24-Hour (Mmol/24 hr) 0.46 H ospital Lab Urine mmol/ (Internal) : [address] ? ? UR ? Oxalate, 24 19.4 mg/24 9.7 - Final [place] hr, U (mg/24 h 40.5 Coun try hr) mg/24 Hospital L ab h (Internal) : [address] ? ? UR ? Collection 24 h ? Final [facility] Duration [facility] (Internal) : [address] ? ? UR ? Urine 1380 mL ? Final [facility] Volume [facility] (Internal) : [address] 08/22/2021 Citrate, UR High Citrate 1232 mg/24 406 - Final [place] Quantitative Excretion, h 1191 [facility] , 24-Hour 24 hr, U mg/24 [facility]pi [facility] Lab Urine h (Internal) : [address] ? ? UR ? Collection 24 h ? Final [place] Duration [facility] Hospital L ab (Internal) : [address] ? ? UR ? Urine 1380 mL ? Final [facility] L ab (Internal) : [address] 08/08/2021 Culture UR ? Final microbiolog ? Final [place] (Co[facility] y results Countr y Count), Hospital Lab Urine (Internal) : [address] 08/08/2021 Urinalysis, Urine ? Color Yellow ? ? P _urology: Dipstick, clean 41 [facility]i [facility] Reflex Micro [facility] ? ? Urine ? Appearance Slightly ? ? P_u rology: clean Cloudy [facility] ? ? Urine ? Glucose Normal ? ? P_urolog y: clean 41 Medical [facility] ? ? Urine ? Bilirubin Negative ? ? P_ur ology: clean [facility] ? ? Urine ? Ketones Negative ? ? P_urol ogy: clean 41 [facility] ? ? Urine ? Specific 1.015 ? ? P_urolo gy: clean [place] 41 Medica l [facility] ? ? Urine ? Blood Negative ? ? P_urolog y: clean 41 [facility] ? ? Urine ? Ph 6.5 ? ? P_urology: clean [facility] ? ? Urine ? Protein Negative ? ? P_urol ogy: clean [facility] ? ? Urine ? Urobilinoge 0.2 ? ? P_ur ology: clean n [facility] ? ? Urine ? Nitrite negative ? ? P_urol ogy: clean [facility] ? ? Urine ? Leukocyte Trace ? ? P_urol ogy: clean [place]sterase 41 Medic al [facility] Allergies Code Code System Name Reaction Severity Onset 20340718 RxNorm Compazine Confusion Severe 07/13/2021 1406 RxNorm Benzoin Rash ? ? 269089 RxNorm Cipro ? ? ? 2670 RxNorm Codeine ? ? ? 9400717 RxNorm Latex Hives ? Rash ? ? 041727 RxNorm Levaquin Rash ? ? 822533 RxNorm Macrobid ? ? ? Sulfa (Sulfonamide ? ? ? Antibiotics) 53972 RxNorm Tetracaine Rash ? ? Problems Name [...] (No Notes) Functional Status Unknown. Past Encounters 08/08/2021 Ureteric Stone; Kidney Stone; Pyuria; Mo rbid Obesity Bandar Garcia MD: [address] [place] [address], Ph. 07/17/2021 Lower Abdominal Pain Franck Sauceda MD: [address] [place] [phone], Ph. History of Present Illness Note: <div>Mrs. Talavera is a pleasant 56-year-old woman referred by Diana Torres N.P., for a kidney stone.</div><div>
</div><div>She had urinary frequency and urgencyand saw her PCP on 2 occasions and was ruled out for urinary tract infection. She says both times there were some white cells in her urine. Cultures dated 07/17/2021 and 07/18/2021 appear to represent voided contaminants. </div><div>
</div><div>She consulted with [employer] because she was concerned that the pressure somehow meant that her sling had moved. She again was told there were white cells in the urine, but that a culture was negative. </div><div>
</div><div>She then went to the ER 07/18/21 with significant urgency without the ability to void and with severe left flank pain, and she was provided with oxybutinin and told she had kidney stones. A CT showed a 3.5 mm left UVJ calculus with mild left hydroureteronephrosis, and a 4 mm left intrarenal calculus. However, it caused her eyes and mouth to swell and she discontinued (review shows that she was on it last year for unclear reasons). The CT also suggested a nodular liver possibly from cirrhosis and a dilated bile duct. The tamsulosin start date was also 07/18.</div><div>
</div><div>CT 11/29 showed no stones.</div><div>
</div><div>She says she went back to the ER (although not entirely clear there were 2 separate ER visits and her history is somewhat self-contradictory) with bladder spasms and stranguria and felt a vibratory sensation in the vagina (like spasming). She had no nausea or pain but felt like an alien was trying to come out. Subsequently, she wasput on tamsulosin and has felt pretty good since. However she is not aware of having passed a stone.The constant urge and the spasms have resolved.</div><div>
</div><div>Compazine provided for nausea caused her to have significant TRANSITION NURSE changes. She had stomach upset and diarrhea from the antibiotics. Her bowels are okay now.

She has not had stones before but she was diagnosed hyperparathyroidism in 2020 and underwent a parathyroidectomy 06/05. She was told to take 600 mg of calcium.</div><div>
</div><div>She voids every 2-3 hours by day and once or twice at night. She denies stress or urge incontinence. She has had no gross hematuria, dysuria, or documented urinary tract infections.</div><div>&lt ;br></div><div>Regarding her very high blood pressure today (197/122), she says it isalways high in the doctor's office. She checks it routinely (daily) at home and it tends to run around 140's over upper 70's.</div> Review of Systems ? Notes: <p>A complete review of syst ems was obtained via scanned intake form and chart review and was positive for: foot and ankle pain, GE reflux, osteoarthritis, migraine headaches, nausea, plantar fasciitis, seasonal allergies, low back pain, left sacroiliac joint pain, and a heart murmur.</p> Physical Exam ? Notes: <div>Pleasant talkative woma n in no distress.

HEENT normal.

Trace unla bored.

Abdomen is protuberant, soft and non-tender. No CVA tendernes s.

Genital exam is not performed.

Lower extr emities show mild pretibial edema.

Neuro grossly intact.</div>
[2021-09-25 11:47] LABS: 2-OH-Ethyl-Flurazepam Negative ng/mL (Cutoff: 10); 7-NH-Clonazepam Negative ng/mL (Cutoff: 10); 7-NH-Flunitrazepam Negative ng/mL (Cutoff: 10); Alpha OH-Alprazolam Negative ng/mL (Cutoff: 10); Alpha-OH Midazolam Negative ng/mL (Cutoff: 10); Alpha-OH-Triazolam Negative ng/mL (Cutoff: 10); Alprazolam Negative ng/mL (Cutoff: 10); Benzodiazepines Interpretation Positive.; Chlordiazepoxide Negative ng/mL (Cutoff: 10); Clobazam Negative ng/mL (Cutoff: 10); Clonazepam Negative ng/mL (Cutoff: 10); Diazepam Negative ng/mL (Cutoff: 10); Flurazepam Negative ng/mL (Cutoff: 10); Lorazepam 218 ng/mL (Cutoff: 10); Midazolam Negative ng/mL (Cutoff: 10); N-Desmethylclobazam Negative ng/mL (Cutoff: 10); Prazepam Negative ng/mL (Cutoff: 10); Temazepam Negative ng/mL (Cutoff: 10); Triazolam Negative ng/mL (Cutoff: 10); Zolpidem Carboxylic acid Negative ng/mL (Cutoff: 10)
== END 2021-09-18 19:29 | disposition home or self-care (01) ==
LOC: NCHCN 19:28
PROVIDERS: PCP Physician Assistant; Visit Provider Nurse Practitioner Family
DX: F41.8 Other specified anxiety disorders (principal); Z51.81 Encounter for therapeutic drug level monitoring
CPT/HCPCS: 80346

== ENCOUNTER 2021-10-22 14:46 | Outpatient (REF) | payer OTHER, SELFPAY ==
[2021-10-22 19:22] LABS: Anion Gap 9.6 mmol/L (3-11); BUN 14 mg/dL (7-18); CO2 27.4 mmol/L (21.0-32.0); CREATININE 0.9 mg/dL (0.55-1.02); Calcium 9.8 mg/dL (8.5-10.1); Chloride 104 mmol/L (98-107); Glucose 95 mg/dL (74-106); Potassium 4.2 mmol/L (3.5-5.1); Sodium 141 mmol/L (136-145)
[2021-10-22 19:46] LABS: Hemoglobin A1C 5.5 % (<5.7)
== END 2021-10-22 14:47 | disposition home or self-care (01) ==
LOC: NCHCN 14:46
PROVIDERS: Visit Provider Nurse Practitioner Family
DX: I10 Essential (primary) hypertension (principal); R73.03 Prediabetes
CPT/HCPCS: 80048; 83036

== ENCOUNTER 2022-11-19 13:02 | Outpatient (REF) | payer OTHER, SELFPAY ==
[2022-11-19 19:08] LABS: ESR 20 mm/hr (0-30)
[2022-11-19 19:09] LABS: HGB 16.5 g/dL (11.2-15.7); MCH 29.3 pg (27.0-33.0); MCV 89 fL (80-95); MPV 11.9 fL (8.0-11.0); Platelet Count 244 10^3/uL (130-400); RBC 5.64 10^6/uL (3.93-5.22); RDW 12.2 % (11.7-14.6); WBC 9.79 10^3/uL (4.4-10.8)
[2022-11-19 19:42] LABS: Vitamin D 25 Total 32.5 ng/mL (30-100)
[2022-11-20 17:53] LABS: Rheumatoid Factor <8.6 IU/mL (<12.0)
[2022-11-21 14:58] LABS: ANA Interpretation Positive (Negative); ANA Titer Pattern 1:80 Speckled
== END 2022-11-19 13:03 | disposition home or self-care (01) ==
LOC: NCHCN 13:02
PROVIDERS: PCP Nurse Practitioner Family; Visit Provider Nurse Practitioner Family
DX: E55.9 Vitamin D deficiency, unspecified (principal); M25.50 Pain in unspecified joint
CPT/HCPCS: 82306; 85027; 85652; 86038; 86431

== ENCOUNTER 2024-01-06 11:48 | Outpatient (REF) | payer OTHER, SELFPAY ==
--- OUTSIDE RECORDS SUMMARY | 2024-01-06 11:50 | XMS_ITS | Continuity of Care Document ---
Author Organization [facility] Address [address] [place] [address] Care Team Providers Care Color Mixer Name Role Phone Diana Torres Primary Care Physician [phone] Encounter [facility] Date(s): 07/15/23 - 07/15/[address] [address] Encounter Diagnosis Trigger finger, right middle finger(Final) - Discharge Disposition: Home or Self Care Attending Physician: Salvador Kitchen MD Admitting Physician: Salvador Kitchen MD Referring Physician: Salvador Kitchen MD Allergies, Adverse Reactions, Alerts Substance Reaction Severity Status LATEX Urticaria Unknown Active ciprofloxacin Rash Unknown Active codeine Nausea Unknown Active nitrofurantoin Unknown Active tetracaine Skin rash Unknown Active benzoin topical Skin rash Unknown Active sulfa drugs Unknown Active levoFLOXacin Skin rash Unknown Active Cymbalta Moderate Active Compazine Confusion Severe Active Assessment and Plan Future Appointments Future Scheduled Tests Radiology* CT Renal Stone Study 08/26/22 Functional Status 07/15/23 Recent Travel History No recent travel Immunizations Given and Recorded Vaccine Date Status Refusal Reason influenza virus vaccine, inactivated 02/08/23 Give n influenza virus vaccine, inactivated 04/14/00 Tera rded SARS-CoV-2 (COVID-19) mRNA-1273 vaccine 07/27/20 R ecorded SARS-CoV-2 (COVID-19) mRNA-1273 vaccine 06/29/20 R ecorded tetanus-diphth toxoids (Td) adult/adol 04/14/00 Re corded Medications Calcium 600 + D3 600 mg-10 mcg (400 unit) tablet Calcium 600 + D3 600 mg-10 mcg (400 unit) tablet, Oral, 0 Refill(s) Start Date: 09/14/21 Status: Ordered hydroCHLOROthiazide 25 mg oral tablet 25 mg = 1 tab, Oral, Daily, 0 Refill(s) Start Date: 05/10/22 Status: Ordered ibuprofen 800 mg oral tablet 800 mg = 1 tab, Oral, every 8 hr, PRN other, as needed Start Date: 09/14/21 Status: Ordered levothyroxine 112 mcg (0.112 mg) oral tablet 1 tab, Oral, Daily, 112 mcg, 0 Refill(s) Start Date: 09/14/21 Status: Ordered LORazepam 0.5 mg oral tablet 0.5 mg = 1 tab, Oral, every 12 hr, 0 Refill(s) Start Date: 06/16/23 Status: Ordered metoprolol tartrate 100 mg oral tablet 100 mg = 1 tab, 0 Refill(s) Start Date: 05/10/22 Status: Ordered Misc Prescription 0 Refill(s) Start Date: 09/14/21 Status: Ordered pantoprazole 20 mg oral delayed release tablet 20 mg = 1 tab, Oral, Daily, PRN control of stomach acid, # 90 tab, 0 Refill(s) Start Date: 06/16/23 Status: Ordered spironolactone 50 mg oral tablet 50 mg = 1 tab, Oral, Daily, # 30 tab, 0 Refill(s) Start Date: 05/10/22 Status: Ordered Problem List Condition Confirmation Course Effective Dates Status H ealth Status Informant Acute vaginitis Confirmed Active Arthralgia of the ankle and/or foot Confirmed Active Essential hypertension Confirmed Active Female genital organ symptoms Confirmed Active Gastroesophageal reflux disease Confirmed 12/04/17 Active Hyperlipidemia screening Confirmed Active Hypothyroidism Confirmed Active Idiopathic osteoarthritis Confirmed Active Left nephrolithiasis Confirmed Active Long-term current use of drug therapy Confirmed Active Migraine Confirmed Active Nausea Confirmed Active Pain of left shoulder joint Confirmed Active Plantar fascial fibromatosis Confirmed Active Seasonal allergic rhinitis Confirmed Active Traumatic dislocation of knee joint Confirmed Active Trigger finger, right Confirmed Active Urinary incontinence Confirmed Active Procedures Procedure Date Related Diagnosis Body Site Status EGD/endoscopy 1 02/26/12 Completed Knee arthroscopy/surgery 2 02/05/12 Completed Total vaginal hysterectomy 3 04/10/10 Completed Colonoscopy 4 04/13/05 Completed Carpal tunnel release open 5 02/24/05 Completed Laparoscopy 6 07/23/04 Completed Oophorectomy 7 3/9/05 Completed Cholecystectomy 04/07/01 Completed Appendectomy 04/13/84 Completed Parathyroidectomy 8 Compl eted Tonsillectomy 9 Completed 1mild hiatal hernia, antral gastritis, duodenitis of bulb. 2009 sm hiatal hernia. 2004 severe gastritis. 2with medial femoral condyle chondroplasty 3LAVH with TVT 4normal 5Right 6Evacuation Pelvic Hematoma 7Laparoscopic left oophorectomy 8right tumor removed 9age 16 Vital Signs Most recent to oldest [Reference Range]: 1 2 3 Temperature Temporal Artery [36-38 Deg C] 36.8 Deg C (07/15/23 9:35 AM) 37 Deg C (07/15/23 9:18 AM) 35.9 Deg C *LOW* (07/15/23 8:09 AM) Temperature Temporal Artery (DegF) [97.3-100 Deg F] 98.24 Deg F (07/15/23 9:35 AM) 98.6 Deg F (07/15/23 9:18 AM) Peripheral Pulse Rate [60-100 bpm] 60 bpm (07/15/23 10:50 AM) 65 bpm (07/15/23 10:35 AM) 61 bpm (07/15/23 10:20 AM) Heart Rate Monitored [60-100 bpm] 61 bpm (07/15/23 10:50 AM) 65 bpm (07/15/23 10:35 AM) 64 bpm (07/15/23 10:20 AM) Respiratory Rate [12-24 br/min] 15 br/min (07/15/23 10:50 AM) 15 br/min (07/15/23 10:35 AM) 23 br/min (07/15/23 10:20 AM) Blood Pressure [90-140/60-90 mmHg] 152/71mmHg *HI* (07/15/23 10:50 AM) 157/83mmHg *HI* (07/15/23 10:35 AM) 179/92mmHg *HI* (07/15/23 10:20 AM) Mean Arterial Pressure, Cuff [65-140 mmHg] 98 mmHg (07/15/23 10:50 AM) 108 mmHg (07/15/23 10:35 AM) 121 mmHg (07/15/23 10:20 AM) Weight 134 kg (07/15/23 8:09 AM) Weight Dosing 134.000 kg (07/15/23 8:09 AM) Weight Estimated 130.60 kg (07/08/23 12:46 PM) Height 168 cm (07/15/23 8:09 AM) Body Mass Index 47.48 kg/m2 (07/15/23 8:09 AM) Social History Social History Type Response Tobacco Never tobacco user T obacco Use:. Sex Female Discharge instructions * Aura Leos: PERFORM Event Display: Discharge Instructions Authored Date: [id number] KEY VELIZ Moo :1965 Age:58 years Sex:Female Visit Date:07/15/2023 Primary Care Physician: Diana Torres ALLOCATIONS CLERK Hospital Discharge Instructions We would like to thank you for allowing us to assist you with your healthcare needs. The following includes patient education materials and information regarding your injury/illness. Your Next Steps Instructions From Your Care Team Orthopedic Surgery Discharge Instructions ok to take down dressings in 2 days shower and cover incision with band aid ok to use hand for light activities?? do not submerge incision under water? Pain Control ?Take your pain relief medication when discomfort first begins. ?Can use stool softener while taking the narcotic to avoid problems with constipation. ?It is okay to start scrn-zsa-[id number] Naproxen or Ibuprofen??immediately ?? Call your doctor if you: ?Develop a fever over 101 degrees. ?Have increased redness, warmth, discharge, swelling, or hardness around the operative site. ?Circulation changes such as tingling, numbness or your fingers/toes appear blue or white. ?Your pain is not adequately controlled, despite taking your pain medication routinely. ?? On the day of surgery, or while taking narcotic pain medication: No driving, operating power equipment,?? drinking alcohol,?? or taking mood altering drugs? Apply warm, moist compress to IV site if sore or red, for 20 minutes, 4 times a day, for 2-3 days.?? Call your doctor if IV site soreness or redness persists. In the event of any problems after surgery, contact your doctor or the Emergency Room @ . Ortho Office: [phone]?? Discharge Orders Discharge Patient Instructions, Follow discharge instructions handout Scheduled Future Appointments Friday 1:30 PM EDT ?? With: Yolanda Oconnor PA-C Where: [facility] [address] [place] [address], [address] [place] [address] Status: Confirmed Your Summary Your Care Team Admitting Physician - Kiana CASTANEDA, Salvador Bowling MD Attending Physician - Kiana CASTANEDA, Salvador Bowling MD Primary Care Physician - Diana Torres NP Referring Physician - Kiana CASTANEDA, Salvador Bowling MD Patient/Senior Chemical Engineer Signature Patient Name:KEY VELIZ I have received this information and my questions have been answered. Patient/Senior Chemical Engineer Name: Patient/Senior Chemical Engineer Signature: Relationship to Patient: Witness Name/Signature: Date: Electronically Signed on: 07/15/2023 10:47 EDTSigned by:GERSON Villatoro * Event Display: Patient Visit Note Authored Date: [id number] History and physical note * Shyann Esquivel: PERFORM Event Display: History and Physical Authored Date: [id number] JOSE ALFREDOROGERKEY M :1965 Age:58 years Sex:Female Primary Care Physician: Diana Torres ALLOCATIONS CLERK Visit Date:??06/16/2023 [1] ? Chief Complaint Certified Personal Trainer- Right hand 3rd finger triggering History of Present Illness Right hand??long finger trigger fingers been present for the last several months now locking with each successive flexion attempt and having to open it with the contralateral hand. Review of Systems Constitutional:?No??fevers,?No??chills,?No??sweats Eye:?No??recent visual problems ENT:?No??ear pain,?No??nasal congestion,?No??sore throat Respiratory:?No??shortness of breath,?No??cough Cardiovascular:?No??Chest pain,?No??palpitations,?No??syncope Gastrointestinal:?Nonausea,?No??vomiting,?No??diarrhea Genitourinary:?No??hematuria Connor/Lymph:?No??bruising tendency,?No??swollen lymph glands Endocrine:?No??excessive thirst,??No??excessive hunger Musculoskeletal:??No??back pain,??No??neck pain,??No??joint pain,??No??muscle pain,??No??decreased range of motion Integumentary:?No??rash,?No??pruritus,?No??abrasions Neurologic: Alert & oriented X 4 Psychiatric:?No??anxiety,?No??depression Physical Exam ?Vitals & Measurements ?HT:??170.18??cm?? WT:??136.08??kg?? BMI:??46.99?? BSA:??2.54?? Well-nourished well-developed no acute distress alert and oriented appearing stated age is normal??shoulder elbow wrist hand range of motion with cap refill distally no open wound signs of erythema or infection??positively triggering nodule at the A1 heidy that locks with flexion. Assessment/Plan 1.??Trigger finger, right??M65.30 ?Right long finger trigger finger options watchful waiting therapy injection or surgical intervention after discussing this was interested in having this operatively repaired so the plan will be along finger trigger release and we will see her again at that time. ?Ordered: PAT Surgery / Procedure Nursing Review Request., 06/16/23 13:25:00 Kiana [facility], Salvador Bowling MD, Right long trigger release, Right long trigger finger release. Need 15 minutes. Date and time per schedule. Anesthesia per choice. BMI 46, Trigger finger, right ?? Problem List/Past Medical History Ongoing ?Acute vaginitis ??Arthralgia of the ankle and/or foot ??Female genital organ symptoms ??Gastroesophageal reflux disease ??Hyperlipidemia screening ??Hypothyroidism ??Idiopathic osteoarthritis ??Left nephrolithiasis ??Long-term current use of drug therapy ??Migraine ??Morbid obesity ??Nausea ??Pain of left shoulder joint ??Plantar fascial fibromatosis ??Seasonal allergic rhinitis ??Traumatic dislocation of knee joint ??Trigger finger, right ??Urinary incontinence Historical ?No qualifying data Procedure/Surgical History ???EGD/endoscopy (02/27/2012)???Knee arthroscopy/surgery (02/06/2012)???Total vaginal hysterectomy (04/11/2010)???Colonoscopy (04/14/2005)???Carpal tunnel release open (02/12)???Laparoscopy (07/24/2004)???Oophorectomy (06/21/2004)???Cholecystectomy (04/08/2001)???Appendectomy (04/14/1984)???Parathyroidectomy???Tonsillectomy ?? Medications ??!-Augmentin 875 mg-125 mg oral tablet, 1 tab, Oral, every 12 hr ??Calcium 600 + D3 600 mg-10 mcg (400 unit) tablet, Oral ??hydroCHLOROthiazide 25 mg oral tablet, 25 mg= 1 tab, Oral, Daily ??ibuprofen 800 mg oral tablet, 800 mg= 1 tab, Oral, every 8 hr, PRN ??levothyroxine 112 mcg (0.112 mg) oral tablet, 1 tab, Oral, Daily ??metoprolol tartrate 100 mg oral tablet, 100 mg= 1 tab ??Misc Prescription ??spironolactone 50 mg oral tablet, 50 mg= 1 tab, Oral, Daily ??tamsulosin 0.4 mg oral capsule, 0.4 mg= 1 cap, Oral, Daily, PRN, 1 refills ??tamsulosin 0.4 mg oral capsule, 0.4 mg= 1 cap, Oral, Daily Allergies Compazine??(Confusion) LATEX??(Urticaria) benzoin topical??(Skin rash) ciprofloxacin codeine levoFLOXacin??(Skin rash) nitrofurantoin sulfa drugs tetracaine??(Skin rash) Social History Alcohol ??Never Electronic Cigarette/Vaping ??Electronic Cigarette Use: Never. 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 Living situation: Home/Independent. Substance Use ??Never Tobacco ??Never tobacco user Tobacco Use:. Family History ??Heart disease: Father. ??Hypertension: Mother and Father. [2] [1]??Office Visit Note; Salvador Kitchen MD 06/16/2023 13:26 EST [2]??Office Visit Note; Salvador Kitchen MD 06/16/2023 13:26 EST Electronically Signed on 07/08/23 03:43 PM Shyann Esquivel Electronically Signed on 07/09/23 07:26 AM Salvador Kitchen MD * Kiana MTZSalvador MD: PERFORM Event Display: History and Physical Authored Date: Patient seen and propofol no change in general still status H&P updated Electronically Signed on 07/15/23 08:59 AM Salvador Kitchen MD Patient Care team information Care Team Personnel Name: Diana Torres ALLOCATIONS CLERK Position: PowerChart View Only Member Role: Informed Provider Address: Address: [address] [place] [address]- Care Team Related Persons Name: TAIWO VELIZ Address: Home [address] [place] [phone]
--- OUTSIDE RECORDS SUMMARY | 2024-01-06 11:50 | XMS_ITS | Continuity of Care Document ---
Author Organization [facility] Address [address] [place] [address] Care Team Providers Care Business Development Sales Executive Name Role Phone Diana Torres Primary Care Physician [phone] Encounter [facility]_[place] Date(s): 09/10/22 - 09/10/[address] [address] Discharge Disposition: Home or Self Care Attending Physician: Diana Torres FARMWORKER [employer] Admitting Physician: Diana Torres FARMWORKER [employer] Referring Physician: Diana Torres FARMWORKER [employer] Allergies, Adverse Reactions, Alerts Substance Reaction Severity Status LATEX Urticaria Unknown Active ciprofloxacin Unknown Active codeine Unknown Active nitrofurantoin Unknown Active tetracaine Skin rash Unknown Active benzoin topical Skin rash Unknown Active sulfa drugs Unknown Active Compazine Confusion Severe Active levoFLOXacin Skin rash Unknown Active Assessment and Plan Future Appointments Future Scheduled Tests Radiology* CT Renal Stone Study 08/26/22 Immunizations Given and Recorded Vaccine Date Status Refusal Reason SARS-CoV-2 (COVID-19) mRNA-1273 vaccine 07/27/20 R ecorded SARS-CoV-2 (COVID-19) mRNA-1273 vaccine 06/29/20 R ecorded influenza virus vaccine, inactivated 04/14/00 Tera rded tetanus-diphth toxoids (Td) adult/adol 04/14/00 Re corded Medications !-Augmentin 875 mg-125 mg oral tablet 1 tab, Oral, every 12 hr, # 20 tab, 0 Refill(s), Pharmacy: [facility] #[id number], 170.1, cm, 05/10/22 13:25:00 EST, Height/Length Dosing, 130.6, kg, 05/10/22 13:25:00 EST, Weight Dosing Start Date: 05/10/22 Stop Date: 05/20/22 Status: Ordered Calcium 600 + D3 600 mg-10 mcg [...] 0 Refill(s) Start Date: 09/14/21 Status: Ordered metoprolol tartrate 100 mg oral tablet 100 mg = 1 tab, 0 Refill(s) Start Date: 05/10/22 Status: Ordered Misc Prescription 0 Refill(s) Start Date: 09/14/21 Status: Ordered spironolactone 50 mg oral tablet 50 mg = 1 tab, Oral, Daily, # 30 tab, 0 Refill(s) Start Date: 05/10/22 Status: Ordered tamsulosin 0.4 mg oral capsule 0.4 mg = 1 cap, Oral, Daily, PRN other (see comment), # 30 cap, 1 Refill(s), Pharmacy: [facility] #[id number] Start Date: 02/21/22 Stop Date: 04/22/22 Status: Ordered tamsulosin 0.4 mg oral capsule 0.4 mg = 1 cap, Oral, Daily, for 10 days Start Date: 09/14/21 Status: Ordered Problem List Condition Confirmation Course Effective Dates Status H ealth Status Informant Acute vaginitis Confirmed Active Arthralgia of the ankle and/or foot Confirmed Active Female genital organ symptoms Confirmed [...] Traumatic dislocation of knee joint Confirmed Active Urinary incontinence Confirmed Active Procedures Procedure Date Related Diagnosis Body Site Status EGD/endoscopy 1 02/26/12 Completed Knee arthroscopy/surgery 2 02/05/12 Completed Total vaginal hysterectomy 3 04/10/10 Completed Colonoscopy 4 04/13/05 Completed Carpal tunnel release open 5 02/24/05 Completed Laparoscopy 6 07/23/04 Completed Oophorectomy 7 06/20/04 Completed Cholecystectomy 04/07/01 Completed Appendectomy 04/13/84 Completed Parathyroidectomy 8 Compl eted Tonsillectomy 9 Completed 1mild hiatal hernia, antral gastritis, duodenitis of bulb. 2009 sm hiatal hernia. 2004 severe gastritis. 2with medial femoral condyle chondroplasty 3LAVH with TVT 4normal 5Right 6Evacuation Pelvic Hematoma 7Laparoscopic left oophorectomy 8right tumor removed 9age 16 Results Laboratory List Name Date Basic Metabolic Panel 09/10/22 Most recent to oldest [Reference Range]: 1 BUN [7-18 mg/dL] 16 mg/dL (09/10/22 1:04 PM) Glucose Level [74-106 mg/dL] 91 mg/dL (09/10/22 1:04 PM) Potassium Level [3.5-5.1 mmol/L] 4.0 mmo l/L (09/10/22 1:04 PM) Sodium Level [136-145 mmol/L] 140 mmol/L (09/10/22 1:04 PM) Calcium Level [8.5-10.1 mg/dL] 9.6 mg/dL (09/10/22 1:04 PM) CO2 [21-32 mmol/L] 31 mmol/L (09/10/22 1:04 PM) eGFR Non-AA [>=60] 68 (09/10/22 1:04 PM) eGFR AA [>=60] 68 (09/10/22 1:04 PM) Chloride Level [98-107 mmol/L] 102 mmol/ L (09/10/22 1:04 PM) Creatinine Level [0.55-1.02 mg/dL] 0.97 mg/dL (09/10/22 1:04 PM) Social History Social History Type Response Tobacco Never tobacco user T obacco Use:. Sex Female Patient Care team information Care Team Personnel Name: Diana Torres FARMWORKER [employer] Position: PowerChart View Only Member Role: Informed Provider Address: Address: [address] [place] [address]- Care Team Related Persons Name: TAIWO VELIZ Address: Home [address] [place], [place] [id number]
--- OUTSIDE RECORDS SUMMARY | 2024-01-06 11:50 | XMS_ITS | Continuity of Care Document ---
Author Organization [facility] Address [address] [place] [address] Care Team Providers Care Machine Taper Name Role Phone Diana Torres Primary Care Physician Encounter [place]_[place] Date(s): 11/10/23 - 11/10/[address] [address] Discharge Disposition: Home or Self Care Attending Physician: Diana Torres PRINCIPAL STRATEGIST Admitting Physician: Diana Torres PRINCIPAL STRATEGIST Referring Physician: Diana Torres PRINCIPAL STRATEGIST Allergies, Adverse Reactions, Alerts Substance Reaction Severity Status LATEX Urticaria Unknown Active ciprofloxacin Rash Unknown Active codeine Nausea Unknown Active nitrofurantoin Unknown Active tetracaine Skin rash Unknown Active benzoin topical Skin rash Unknown Active sulfa drugs Unknown Active Compazine Confusion Severe Active Cymbalta Moderate Active levoFLOXacin Skin rash Unknown Active Immunizations Given and Recorded Vaccine Date Status [...] Procedure Date Related Diagnosis Body Site Status Tendon sheath incision (eg, for trigger finger) 1 07/14/23 Completed EGD/endoscopy 2 02/26/12 Completed Knee arthroscopy/surgery 3 02/05/12 Completed Total vaginal hysterectomy 4 04/10/10 Completed Colonoscopy 5 04/13/05 Completed Carpal tunnel release open 6 02/24/05 Completed Laparoscopy 7 07/23/04 Completed Oophorectomy 8 06/20/04 Completed Cholecystectomy 04/07/01 Completed Appendectomy 04/13/84 Completed Parathyroidectomy 9 Compl eted Tonsillectomy 10 Complete d 1R LF trigger finger release 2mild hiatal hernia, antral gastritis, duodenitis of bulb. 2009 sm hiatal hernia. 2004 severe gastritis. 3with medial femoral condyle chondroplasty 4LAVH with TVT 5normal 6Right 7Evacuation Pelvic Hematoma 8Laparoscopic left oophorectomy 9right tumor removed 10age 16 Results Laboratory List Name Date Basic Metabolic Panel 11/10/23 Thyroid Stimulating Hormone 11/10/23 Most recent to oldest [Reference Range]: 1 BUN [7-18 mg/dL] 14 mg/dL (11/10/23 11:04 AM) Glucose Level [74-106 mg/dL] 92 mg/dL (11/10/23 11:04 AM) Potassium Level [3.5-5.1 mmol/L] 3.8 mmo l/L (11/10/23 11:04 AM) Sodium Level [136-145 mmol/L] 138 mmol/L (11/10/23 11:04 AM) Calcium Level [8.5-10.1 mg/dL] 9.5 mg/dL (11/10/23 11:04 AM) CO2 [21-32 mmol/L] 26 mmol/L (11/10/23 11:04 AM) TSH [0.358-3.740 mcIntlUnit/mL] 0.581 mc IntlUnit/mL (11/10/23 11:04 AM) eGFR Non-AA [>=60] 80 (11/10/23 11:04 AM) eGFR AA [>=60] 80 (11/10/23 11:04 AM) Chloride Level [98-107 mmol/L] 101 mmol/ L (11/10/23 11:04 AM) Creatinine Level [0.55-1.02 mg/dL] 0.84 mg/dL (11/10/23 11:04 AM) Social History Social History Type Response Tobacco Never tobacco user T obacco Use:. Sex Female Patient Care team information Care Team Personnel Name: Diana Torres PRINCIPAL STRATEGIST Position: PowerChart View Only Member Role: Informed Provider Address: Address: [address] [place], [place] [address] Care Team Related Persons Name: TAIWO VELIZ Address: Home [address] [place], [place] [id number]
--- OUTSIDE RECORDS SUMMARY | 2024-01-06 11:50 | XMS_ITS | Continuity of Care Document ---
Author Organization [facility] Address [address] [place] [address] Care Team Providers Care Benefits Officer Name Role Phone Diana Torres Primary Care Physician [phone] Encounter NCTY_[place] Date(s): 02/05/23 - 02/05/[address] [address] Discharge Disposition: Home or Self Care Attending Physician: Diana Torres OPERATIONS RESEARCH MANAGER Admitting Physician: Diana Torres OPERATIONS RESEARCH MANAGER Referring Physician: Diana Torres OPERATIONS RESEARCH MANAGER Allergies, Adverse Reactions, Alerts Substance Reaction Severity Status LATEX Urticaria Unknown Active ciprofloxacin Unknown Active codeine Unknown Active nitrofurantoin Unknown Active tetracaine Skin rash Unknown Active benzoin topical Skin rash Unknown Active sulfa drugs Unknown Active Compazine Confusion Severe Active levoFLOXacin Skin rash Unknown Active Assessment and Plan Future Scheduled Tests Radiology* CT Renal Stone [...] hr, # 20 tab, 0 Refill(s), Pharmacy: [facility] #58, 170.1, cm, 05/10/22 13:25:00 EST, Height/Length [...] comment), # 30 cap, 1 Refill(s), Pharmacy: [facility] #[id number] Start Date: 02/21/22 Stop Date: 04/22/22 [...] left oophorectomy 8right tumor removed 9age 16 Social History Social History Type Response Tobacco Never tobacco user T obacco Use:. Sex Female Patient Care team information Care Team Personnel Name: Diana Torres OPERATIONS RESEARCH MANAGER Position: PowerChart View Only Member Role: Informed Provider Address: Address: [address] [place], [place] [address] Care Team Related Persons Name: TAIWO VELIZ Address: Home [address] [place] [place], [place] [id number]
--- OUTSIDE RECORDS SUMMARY | 2024-01-06 11:50 | XMS_ITS | Continuity of Care Document ---
Author Organization [facility] Address [address] [place] [address] Care Team Providers Care Inside Sales Coordinator Name Role Phone Diana Torres Primary Care Physician [phone] Encounter [facility] Date(s): 01/07/22 - 01/07/[address] [address] Discharge Disposition: Home or Self Care Attending Physician: Diana Torres PIPELINE EXECUTIVE Admitting Physician: Diana Torres PIPELINE EXECUTIVE Referring Physician: Diana Torres PIPELINE EXECUTIVE Allergies, Adverse Reactions, Alerts Substance Reaction Severity Status LATEX Urticaria Unknown Active ciprofloxacin Unknown Active codeine Unknown Active nitrofurantoin Unknown Active tetracaine Skin rash Unknown Active benzoin topical Skin rash Unknown Active sulfa drugs Unknown Active Compazine Confusion Severe Active levoFLOXacin Skin rash Unknown Active Assessment and Plan Future Appointments Diagnostic Tests Pending * PTH Intact [facility] 01/07/22 * Vitamin D, 25-OH Total [facility] 01/07/22 Future Scheduled Tests Radiology* CT Renal Stone Study 12/31/21 * CT Renal Stone Study 08/26/22 Immunizations Given [...] 0 Refill(s) Start Date: 09/14/21 Status: Ordered ibuprofen 800 mg oral tablet 800 mg = 1 tab, Oral, every 8 hr, PRN other, as needed Start Date: 09/14/21 Status: Ordered levothyroxine 112 mcg (0.112 mg) oral tablet 1 tab, Oral, Daily, 0 Refill(s) Start Date: 09/14/21 Status: Ordered Misc Prescription 0 Refill(s) Start Date: 09/14/21 Status: Ordered tamsulosin 0.4 mg oral capsule 0.4 mg = 1 cap, Oral, Daily, for 10 days Start Date: 09/14/21 Status: Ordered tamsulosin 0.4 mg oral capsule 0.4 mg = 1 cap, Oral, Daily, # 30 cap, 1 Refill(s), Pharmacy: [facility] #58 Start Date: 12/24/21 Stop Date: 02/22/22 Status: Ordered Problem List Condition Effective Dates Status Health Status Inform ant Acute vaginitis(Confirmed) Active Arthralgia of the ankle and/ or foot(Confirmed) Active Female genital organ symptoms(Confirmed) Active Gastroesophageal reflux disease(Confirmed) 12/04/17 Active Hyperlipidemia screening(Confirmed) Active Hypothyroidism(Confirmed) Active Idiopathic osteoarthritis(Confirmed) Active Left nephrolithiasis(Confirmed) Active Long-term current use of christ g therapy(Confirmed) Active Migraine(Confirmed) Active Nausea(Confirmed) Active Pain of left shoulder joint(Confirmed) Active Plantar fascial fibromatosis(Confirmed) Active Seasonal allergic rhinitis(Confirmed) Active Traumatic dislocation of kne e joint(Confirmed) Active Urinary incontinence(Confirmed) Active Procedures Procedure Date Related Diagnosis Body [...] Laboratory List Name Date Basic Metabolic Panel 01/07/22 Calcium Level Total 01/07/22 Most recent to oldest [Reference Range]: 1 2 BUN [7-18 mg/dL] 12 mg/dL (01/07/22 11:13 AM) Glucose Level [74-106 mg/dL] 91 mg/dL (01/07/22 11:13 AM) Potassium Level [3.5-5.1 mmol/L] 4.4 mmo l/L (01/07/22 11:13 AM) Sodium Level [136-145 mmol/L] 141 mmol/L (01/07/22 11:13 AM) Calcium Level [8.5-10.1 mg/dL] 9.3 mg/dL (01/07/22 11:13 AM) 9.3 mg/dL (01/07/22 11:13 AM) CO2 [21-32 mmol/L] 28 mmol/L (01/07/22 11:13 AM) eGFR Non-AA [>=60] 89 (01/07/22 11:13 AM) eGFR AA [>=60] 89 (01/07/22 11:13 AM) Chloride Level [98-107 mmol/L] 105 mmol/ L (01/07/22 11:13 AM) Creatinine Level [0.55-1.02 mg/dL] 0.78 mg/dL (01/07/22 11:13 AM) Anion Gap [8-16 mmol/L] 8 mmol/L (01/07/22 11:13 AM) Social History Social History Type Response Tobacco Never tobacco user T obacco Use:. Sex Female Patient Care team information Personnel Name: Diana Torres PIPELINE EXECUTIVE Address: Address: [address] [place] [id number] [place] [address]
--- OUTSIDE RECORDS SUMMARY | 2024-01-06 11:50 | XMS_ITS | Continuity of Care Document ---
Author Organization [facility] Address [address] [place] [address] Care Team Providers Care Central Sterilization Technician Name Role Phone Diana Torres Primary Care Physician [phone] Encounter [facility] Date(s): 10/01/22 - 10/01/[address] [address] Discharge Disposition: Home or Self Care Attending Physician: Diana Torres ROAD DESIGN ENGINEER Admitting Physician: Diana Torres ROAD DESIGN ENGINEER Referring Physician: Diana Torres ROAD DESIGN ENGINEER Allergies, Adverse Reactions, Alerts Substance Reaction Severity Status LATEX Urticaria Unknown Active ciprofloxacin Unknown Active codeine Unknown Active nitrofurantoin Unknown Active tetracaine Skin rash Unknown Active benzoin topical Skin rash Unknown Active sulfa drugs Unknown Active Compazine Confusion Severe Active levoFLOXacin Skin rash Unknown Active Assessment and Plan Diagnostic Tests Pending * Tick-Borne Disease Abs Panel, Adriana OJEDA 10/01/22 Future Scheduled Tests Radiology* CT Renal Stone [...] hr, # 20 tab, 0 Refill(s), Pharmacy: [facility] #58, 170.1, cm, 05/10/22 13:25:00 EST, Height/Length [...] comment), # 30 cap, 1 Refill(s), Pharmacy: [facility] #[facility] Start Date: 02/21/22 Stop Date: [...] 9age 16 Results Laboratory List Name Date Lipid Panel 10/01/22 TSH w/ Rflx to Free T4 10/01/22 Most recent to oldest [Reference Range]: 1 Cholesterol Total [50-200 mg/dL] 198 mg/ dL (10/01/22 10:47 AM) LDL [0-130 mg/dL] 122 mg/dL (10/01/22 10:47 AM) HDL [40-60 mg/dL] 58 mg/dL (10/01/22 10:47 AM) Triglycerides [0-150 mg/dL] 89 mg/dL (10/01/22 10:47 AM) TSH [0.358-3.740 mcIntlUnit/mL] 1.711 mc IntlUnit/mL (10/01/22 10:47 AM) Social History Social History Type Response Tobacco Never tobacco user T obacco Use:. Sex Female Patient Care team information Care Team Personnel Name: Diana Torres ROAD DESIGN ENGINEER Position: PowerChart View Only Member Role: Informed Provider Address: Address: [address] [place] [address]- Care Team Related Persons Name: TAIWO VELIZ Address: Home [address] [place], [place] [id number]
--- OUTSIDE RECORDS SUMMARY | 2024-01-06 11:50 | XMS_ITS | Continuity of Care Document ---
Author Organization [facility] Address [address] [place] [address] Care Team Providers Care Esthetician/Spa Coordinator Name Role Phone Diana Torres Primary Care Physician Encounter [facility] Date(s): 08/14/22 - 08/14/[address] [address] Discharge Disposition: Home or Self Care Attending Physician: Diana Torres NURSE SITTER Admitting Physician: Diana Torres NURSE SITTER Referring Physician: Diana Torres NURSE SITTER Allergies, Adverse Reactions, Alerts Substance Reaction Severity [...] hr, # 20 tab, 0 Refill(s), Pharmacy: [email or web address] #58, 170.1, cm, 05/10/22 13:25:00 EST, Height/Length [...] # 30 cap, 1 Refill(s), [facility] Start Date: 02/21/22 Stop Date: 04/22/22 [...] 9age 16 Results Laboratory List Name Date Comprehensive Metabolic Panel 08/14/22 Thyroid Stimulating Hormone 08/14/22 Vitamin D, 25-OH Total [facility] 08/14/22 Most recent to oldest [Reference Range]: 1 BUN [7-18 mg/dL] 14 mg/dL (08/14/22 10:23 AM) Glucose Level [74-106 mg/dL] 94 mg/dL (08/14/22 10:23 AM) Potassium Level [3.5-5.1 mmol/L] 3.8 mmo l/L (08/14/22 10:23 AM) AST [15-37 unit/L] 37 unit/L (08/14/22 10:23 AM) ALT [14-59 unit/L] 53 unit/L (08/14/22 10:23 AM) Sodium Level [136-145 mmol/L] 140 mmol/L (08/14/22 10:23 AM) Calcium Level [8.5-10.1 mg/dL] 9.3 mg/dL (08/14/22 10:23 AM) Albumin Level [3.4-5.0 g/dL] 3.8 g/dL (08/14/22 10:23 AM) Protein Total [6.4-8.2 g/dL] 7.7 g/dL (08/14/22 10:23 AM) Bilirubin Total [0.2-1.0 mg/dL] 0.6 mg/d L (08/14/22 10:23 AM) Alk Phos [46-146 unit/L] 133 unit/L (08/14/22 10:23 AM) CO2 [21-32 mmol/L] 30 mmol/L (08/14/22 10:23 AM) TSH [0.358-3.740 mcIntlUnit/mL] 4.757 mc IntlUnit/mL *HI* (08/14/22 10:23 AM) eGFR Non-AA [>=60] 67 (08/14/22 10:23 AM) eGFR AA [>=60] 67 (08/14/22 10:23 AM) Chloride Level [98-107 mmol/L] 102 mmol/ L (08/14/22 10:23 AM) Creatinine Level [0.55-1.02 mg/dL] 0.99 mg/dL (08/14/22 10:23 AM) Vitamin D, 25-OH, Total [facility] [30-100 ng/m L] 35 ng/mL 1 *NA* (08/14/22 10:23 AM) 1Result Comment: Vitamin D 25,OH Interpretive Ranges: Deficiency: <10.0 ng/mL Insufficiency: 10.0 - 30.0 ng/mL Sufficiency: 30.0 - 100.0 ng/mL Toxicity: >100.0 ng/mL Test performed or referred by The [address] [address] Social History Social History Type Response Tobacco Never tobacco user T obacco Use:. Sex Female Patient Care team information Care Team Personnel Name: Diana Torres NURSE SITTER Position: PowerChart View Only Member Role: Informed Provider Address: Address: [address] [place], [place] [address] Care Team Related Persons Name: TAIWO VELIZ Address: Home [address] [place], [place] [id number]
--- OUTSIDE RECORDS SUMMARY | 2024-01-06 11:50 | XMS_ITS | Continuity of Care Document ---
Author Organization [facility] Address [address] [place] [address] Care Team Providers Care Stable Hand Name Role Phone Diana Torres Primary Care Physician [phone] [facility]): [facility] - 01/08/[address] [address] [place] Encounter Diagnosis Left nephrolithiasis(Discharge Diagnosis) - 01/08/22 Discharge Disposition: Home or Self Care Attending Physician: Bandar Garcia MD Admitting Physician: Bandar Garcia MD Allergies, Adverse Reactions, Alerts Substance Reaction [...] Daily, # 30 cap, 1 Refill(s), Pharmacy: [facility] #58 Start Date: 12/24/21 Stop Date: 02/22/22 [...] Care team information Personnel Name: Diana Torres TRANSACTIONAL PARALEGAL Address: Address: [address] [place] [address] [place]
--- OUTSIDE RECORDS SUMMARY | 2024-01-06 11:51 | XMS_ITS | Continuity of Care Document ---
Author Organization [facility] Address [address] [place] [address] Care Team Providers Care Sheet Rock Hanger Name Role Phone Diana Torres Primary Care Physician Encounter [facility] Date(s): 01/07/22 - 01/07/[address] [address] Discharge Disposition: Home or Self Care Attending Physician: Makenzie Salazar Admitting Physician: Makenzie Salazar Referring Physician: Makenzie Salazar Allergies, Adverse Reactions, Alerts Substance Reaction Severity [...] Daily, # 30 cap, 1 Refill(s), Pharmacy: [facility] #[facility] Start Date: 12/24/21 Stop Date: 02/22/22 [...] Care team information Personnel Name: Diana Torres BELT MEASURER Address: Address: [address] [place] [address] [place]
--- OUTSIDE RECORDS SUMMARY | 2024-01-06 11:51 | XMS_ITS | Encounter Summary ---
Author [place] [address] Care Team Providers Care Motor Room Controller Name Role Phone Diana Torres APRN Primary Care Provider [phone]- [phone] Encounter Details Date Type Department Care Team (Late st Contact Info) Description 06/11/2021 [place] [address] Cristy Larkin MD [facility] [place] [address] Social History Tobacco Use Types Packs/Day Years Used Date Smoking Tobacco: Never Smokeless Tobacco: Never Sex and Gender Information Value Date Recorded Sex Assigned at Not on file Gender Identity Not on file Sexual Orientation Not on file documented as of this encounter Plan of Treatment Not on file documented as of this encounter Visit Diagnoses Not on filedocumented in this encounter Care Teams Motor Room Controller Relationship Specialty Start Date End Date Diana Torres APRN [address] [place] [id number] PCP - General Family Medicine 02/21/21 documented as of this encounter
--- OUTSIDE RECORDS SUMMARY | 2024-01-06 11:51 | XMS_ITS | Encounter Summary ---
[place] [address] Care Team Providers Care Denture Processor Name Role Phone Diana Torres APRN Primary Care Provider +1- [phone] Encounter Details Date Type Department Care Team (Late st Contact Info) Description 06/11/2021 Notes [place] [address] Cristy Larkin MD [facility] [place] [address] Social History Tobacco Use Types Packs/Day Years [...] on filedocumented in this encounter Care Teams Denture Processor Relationship Specialty Start Date End Date Diana Torres APRN [address] [place] [phone] PCP - General Family Medicine 02/21/21 documented as of this encounter
--- OUTSIDE RECORDS SUMMARY | 2024-01-06 11:51 | XMS_ITS | Encounter Summary ---
[place] [address] Care Team Providers Care Telecommunications Equipment Installer Name Role Phone Diana Torres APRN Primary Care Provider [phone]- [phone] Encounter Details Date Type Department Care Team (Late st Contact Info) Description 06/11/2021 10:00 AM EST TH Visit (TeleHealth) [place] [id number] Social History Tobacco Use Types Packs/Day Years [...] on filedocumented in this encounter Care Teams Telecommunications Equipment Installer Relationship Specialty Start Date End Date Diana Torres APRN [address] [place] [id number] PCP - General Family Medicine 02/21/21 documented as of this encounter
--- OUTSIDE RECORDS SUMMARY | 2024-01-06 11:51 | XMS_ITS | Encounter Summary ---
[place] [address] Care Team Providers Care Clerical Specialist Name Role Phone JoelMirlande kinganahi Cantu APRN Primary Care Provider [phone] Reason for Visit * Auth/Cert Specialty Diagnoses / Procedures Referred By Contac t Referred To Contact Diagnoses Hyperparathyroidism HYPERPARATHYROIDISM Procedures PRO EXPLORE PARATHYROID GLANDS PRG EMG, LARYNX PARATHYROIDECTOMY OR EXPLORATION OF PARATHYROID(S) (WRVU 15.6) FACIAL NERVE MONITORING, SETUP LARYNGEAL (WRVU 1.57) Referral ID Status Reason Start Date Expiration Date Visits Re quested Visits Authorized [id number] 1 1 Encounter Details Date Type Department Care Team (Late st Contact Info) Description 06/05/2021 10:45 AM EST - 06/05/2021 2:23 PM EST Surgery [place] [address] Michelle Corbett MD [facility] [place] [address] PARATHYROIDECTOMY OR EXPLORATION OF PARATHYROID(S) (WRVU 15.6) Social History Tobacco Use Types Packs/Day Years Used Date Smoking Tobacco: Never Smokeless Tobacco: Never Sex and Gender Information Value Date Recorded Sex Assigned at Not on file Gender Identity Not on file Sexual Orientation Not on file documented as of this encounter Last Filed Vital Signs Vital Sign Reading Time Taken Comments Blood Pressure 135/80 06/05/2021 2:00 PM EST Pulse 64 06/05/2021 2:00 PM EST Temperature 36.1 ??C (97 ??F) 06/05/2021 12:50 PM EST Respiratory Rate 14 06/05/2021 2:00 PM EST Oxygen Saturation 93% 06/05/2021 2:00 PM EST Inhaled Oxygen Concentration - - Weight 131.1 kg (289 lb) 06/05/2021 9:47 AM EST Height - - Body Mass Index 46.65 04/26/2021 1:36 PM EST documented in this encounter Discharge Instructions * Patient Instructions* Brent Melgar MD - 06/05/2021 1:00 PM EST PARATHYROIDECTOMY PATIENT DISCHARGE INSTRUCTIONS What to Expect Following Surgery: Swelling and/or bruising under and around the incision is normal. It is usually greatest on the second or third day following surgery. You may also feel the sensation of swelling or firmness that canlast for a month or more Your scar will be most visible for 1-2 months following your operation and will gradually fade overthe next 6-8 months. As it heals, a scar often looks more pink or red than the skin around it. You may feel a ???healing ridge?? directly under the incision. This is completely normal and is the result of swelling, healing, and scar formation. Usually, this will go away when healing is complete in 3-6 months. The skin just above and below your incision will feel numb. This will improve over several months but some patients may have long-term decrease in sensation over these areas. You may notice minor difficulty in swallowing which will improve over time. Your voice may be hoarse or weak at first--this is normal and does not mean there was damage done to the nerves that make the vocal cords move. Your voice will usually go back to normal after severaldays to a few weeks. Incision Care: Neck incisions heal rapidly--usually within a week or two. The incision can get wet in the shower 24 hours after surgery. However, do not submerge the incision underwater (i.e. bath tub, swimming pool, hot tub, etc.) for at least 2 weeks after your operation. Pat the incision dry immediately following your shower. Do not scrub the area vigorously for the next 2 weeks. You have a skin glue closure, and you may notice tiny pieces of yellow/white/begum material on your washcloth or there may be a thin clear or purplish/begum crust around the edges of the incision. Thisis normal. The glue will start to come off about a week after surgery. Do not pull off the skin glue in order to allow time for the incision to heal completely. If there is still some glue on your skin 2 weeks after surgery, you may gently wash it away. Do not use any ointments/salves/Vitamin E on the incision for 2 weeks as these may impair early wound healing. After 2 weeks (and after the skin glue is gone), you may apply vitamin E oil or scar creams to the incision. Gentle massage may help soften your scar tissue. Incisions are sensitive to sunlight. For at least 1 year after surgery you should use sunscreen when outdoors for long periods of time to prevent permanent darkening of the scar. This includes tanning booths. Pain Management: You may apply ice or cold packs to the incision for 15-20 minutes several times a day for the first2-3 days following surgery to help with discomfort. You may feel some stiffness/soreness in your shoulders, back, and neck. This may take a few days orweeks to go away completely. You may use moist warm heat, a heating pad, or massage to these areas for 15-20 minutes several times a day. Do not be afraid to move your neck - gently flexing and stretching your neck muscles and light massage will help prevent stiffness NSAIDs (non-steroidal anti-inflammatory drugs) such as ibuprofen (Motrin, Advil) and naproxen (Naprosyn, Aleve) or acetaminophen (Tylenol) are most helpful for the pain experienced after surgery. Generally, these are even more effective than the stronger pain medications (narcotics or opioids) after parathyroid surgery. Take NSAIDS or Tylenol every 6 hours [id number] for the first 3-5 days following surgery to help minimize pain. It is unusual to require opioid pain medications after parathyroid surgery. If you were prescribed oxycodone, use only for severe pain, and never take with alcohol. Opioid medications typically causeconstipation, so we suggest using a stool softener in addition (metamucil, colace...etc.). Diet & Activity: No restrictions in your diet are necessary. Activity as tolerated by your comfort level. You may return to work as soon as you would like. However, if your job requires heavy lifting or strenuous physical activity, your surgeon may ask you to wait to return to work for two weeks. NO DRIVING for at least 8 hours following any dose of an opioid pain medication if one was prescribed for you. Pathology Report: All specimens removed at surgery are analyzed by a pathologist. This report usually takes approximately 5-7 business days to be ready. Dr. Corbett will call you with this report as soon as it is available. Follow-up Appointment: Will be scheduled with Dr. Corbett in 6 weeks with a lab appointment to check your calcium Date and time will be mailed to you Please call [phone] to confirm the date and time of your appointment if you do not hear from us in the next 2 weeks Call Doctor for: Call if you have trouble talking or breathing (call [phone] if this is severe) Call if you develop numbness or tingling around your mouth/lips or on the tips of your fingers or your hands, as this may mean your calcium is low. This may also be related to pain medication, where the breathing tube was positioned against your lips, the positioning of your arms and hands in the operating room, or how you were positioned when sleeping. If the sensation does not go away within a half hour, or if it worsens prior to that, call us immediately so we can discuss increasing your calcium if we think you need it. Call if your incision becomes red or begins to drain fluid. Call if you have fevers greater than 101 degrees F Call if you have persistent nausea or vomiting (this may be related to opioid pain medications). Call if you begin feeling worse, rather than better, several days after surgery. Information about Calcium Supplementation WHAT IS THE EFFECT OF SURGERY ON MY CALCIUM LEVELS? The parathyroid glands are responsible for controlling the body???s calcium levels, and you probably needed parathyroid surgery because your calcium level was too high. However, after we remove the abnormal gland(s), the remaining parathyroids frequently do not work perfectly right away. This can result in a decrease in blood calcium levels. This is usually temporary and the remaining parathyroidglands almost always make a full recovery. WHAT ARE THE SYMPTOMS OF LOW CALCIUM? If the calcium level in the blood stream decreases after surgery, you may experience symptoms of numbness, tingling, or cramps in the fingers, toes, legs, or around the mouth. WHAT ARE CALCIUM SUPPLEMENTS? Each over the counter calcium supplement tablet is approximately 500-600 mg. There are several different types of calcium sold over the counter. Some of the more common brands you will see include: Tums, Viactiv, Citracal, Caltrate. The two main forms of calcium in supplements are carbonate and citrate. Calcium carbonate (Tums, Viactiv) is absorbed most efficiently when taken with food, whereas calcium citrate (Citracal) is absorbed equally well when taken with or without food. HOW MUCH CALCIUM SHOULD I TAKE AFTER SURGERY? The exact dose of calcium that is right for you after surgery depends on several factors including the type and extent of surgery. Most patients will temporarily require some extra calcium as the parathyroid glands recover. You probably already purchased calcium supplements after reviewing your preoperative handout. A good guideline is to start with 600-1200 mg (1-2 over the counter supplements) twice a day. If you notice symptoms of numbness/tingling, you may need to take it more frequently (up to 3-4 times perday). If you have no symptoms, the dose can be gradually decreased and the extra calcium stopped altogether within a few days of surgery. WHAT ABOUT VITAMIN D? Vitamin D can be very helpful with calcium levels, as adequate vitamin D stores in the body help your body absorb calcium. If you were on Vitamin D prior to surgery, this can be resumed post-operatively. Additional Vitamin D may be included in your calcium supplement, this is fine as well. If you are not on Vitamin D and would like to start after surgery, an over the counter supplement of 400-800 IU is the usual recommended dosage, however, if you are on other medications or have otherhealth issues, you will want to discuss this with your PCP. If your surgeon is concerned about your calcium levels, (s)he may prescribe a different form of vitamin D called Rocaltrol (Calcitriol). This should be taken as instructed. Note that this is not a replacement for calcium, it should be taken in addition to the recommended calcium supplements to helpwith absorption. COMMONLY ASKED QUESTIONS: Are there side effects to calcium supplements? The most common side effect is constipation and stomach upset. If you are taking high doses of calcium after surgery, be sure to include a stool softener or laxative as needed. Minimize narcotics, as these can also cause constipation. Finally, decreaseyour calcium supplements if you note no symptoms of low calcium as noted above. Do I need a blood test after surgery to check my calcium levels? Your calcium level will be checkedat your routine follow up visit to make sure it has returned to normal. You will most likely be offthe postoperative supplements by then. Our bodies will signal us that the calcium level is low withthe symptoms noted above. If you do not have these symptoms, then most likely your calcium level isjust fine. Should I take a long-term calcium supplement? Routine calcium supplements can be good for general bone health, especially if you have osteoporosis as a result of your hyperparathyroidism. We recommend that you discuss long-term supplementation with your PCP. Phone number for questions: [phone] before 5 PM on weekdays [phone] after 5 PM and on weekends/holidays. Ask for the general surgery resident conveyor feeder. documented in this encounter Medications at Time of Discharge Medication Sig Dispensed Refills Start Date End Date cholecalciferol, Vitamin D3, (cholecalciferol, Vitamin D3,) 50 mcg (2,000 unit) Capsule Take 2,000 Units by mouth daily. docusate sodium (Colace) 100 mg Capsule Take 100 mg by mouth daily. UNKNOWN TO PATIENTIndications:janel monzon for immune support Take 50 mg by mouth daily. Indications: mahesh for immune support acetaminophen (Tylenol) 500 mg Tablet Take 1,000 mg by mouth every 6 hours as needed for Pain. spironolactone (ALDACTONE) 50 mg Tablet TAKE ONE TABLET BY MOUTH EVERY MORNING 02/06/2021 pantoprazole EC (Protonix) 20 mg Tablet, Delayed Release (E.C.) TAKE ONE TABLET BY MOUTH EVERY DAY NEEDED 02/22/2021 metoprolol succinate XL (Toprol-XL) 100 mg Tablet Sustained Release 24 hr TAKE ONE TABLET BY MOUTH EVERY DAY 01/03/2021 LORazepam (Ativan) 0.5 mg Tablet TAKE ONE TABLET BY MOUTH TWICE A DAY NEEDED 02/01/2021 levothyroxine (Synthroid) 112 mcg Tablet TAKE ONE TABLET BY MOUTH EVERY DAY 02/20/2021 documented as of this encounter H&P Notes * Brent Melgar MD - 06/05/2021 9:48 AM EST H&P 24hr interval update/Pre-operative note Please see Dr. Corbett's note from clinic for further information. ID: Pavithra Talavera is a 56 y.o. female with a hx of primary hyperparathyroidism who [place] [facility] [place]. Past Medical History: Diagnosis Date ??? GERD (gastroesophageal reflux disease) ??? Hyperparathyroidism ??? Hypertension ??? Hypothyroid Past Surgical History: Procedure Laterality Date ??? HYSTERECTOMY No current facility-administered medications on file prior to encounter. Current Outpatient Medications on File Prior to Encounter Medication Sig Dispense Refill ??? cholecalciferol, Vitamin D3, (cholecalciferol, Vitamin D3,) 50 mcg (2,000 unit) Capsule Take 2,000 Units by mouth daily. ??? docusate sodium (Colace) 100 mg Capsule Take 100 mg by mouth daily. ??? UNKNOWN TO PATIENT Take 50 mg by mouth daily. Indications: elderberry for immune support ??? acetaminophen (Tylenol) 500 mg Tablet Take 1,000 mg by mouth every 6 hours as needed for Pain. ??? spironolactone (ALDACTONE) 50 mg Tablet TAKE ONE TABLET BY MOUTH EVERY MORNING ??? pantoprazole EC (Protonix) 20 mg Tablet, Delayed Release (E.C.) TAKE ONE TABLET BY MOUTH EVERY DAY NEEDED ??? metoprolol succinate XL (Toprol-XL) 100 mg Tablet Sustained Release 24 hr TAKE ONE TABLET BY MOUTH EVERY DAY ??? LORazepam (Ativan) 0.5 mg Tablet TAKE ONE TABLET BY MOUTH TWICE A DAY NEEDED ??? levothyroxine (Synthroid) 112 mcg Tablet TAKE ONE TABLET BY MOUTH EVERY DAY S: Pavithra Talavera endorses no recent change in health. Denies any fever, chills, cough, congestion, change in bowel habits. Prior to arrival today, Pavithra Talavera was in a normal state of health. O: Physical Exam: Gen: AAOx3, resting comfortably CVS: regular rate Pulm: Unlabored breathing on room air, no audible wheezes Abd: soft, non tender, non distended Ext: wwp A/P: Pavithra Talavera is a 56 y.o. female who presents for planned parathyroidectomy. Will proceed with planned operation. Brent Melgar MD 06/05/2021 General Surgery [id number] documented in this encounter Miscellaneous Notes * Brief Op Note - Michelle Corbett MD - 06/05/2021 12:23 PM EST Brief Operative Note Patient Name: Pavithra Talavera : [id number] MR#: [id number] Case Date: 06/05/2021 Surgeon: Surgeon(s) and Role: * Michelle Corbett MD - Primary * Brent Melgar MD - Resident Preoperative diagnosis: HYPERPARATHYROIDISM Postoperative diagnosis: HYPERPARATHYROIDISM Procedure(s) (LRB): PARATHYROIDECTOMY OR EXPLORATION OF PARATHYROID(S) (WRVU 15.6) (N/A) FACIAL NERVE MONITORING, SETUP LARYNGEAL (WRVU 1.57) (N/A) Anesthesia: General Findings: enlarged right lower parathyroid. Atrophied right thyroid lobe. Right RLN intact throughout by NIM signal (never well-visualized) IOPTH findings: Baseline: 315 pg/mL Preexcision 73 pg/mL 10-min post-excision 22 pg/mL 15-min post-excision 16 pg/mL Complications: none apparent Intake: Intraprocedure Crystalloid Total None Transfusion No data found in the last 1 encounters. Output: Estimated Blood Loss: 7cc Urine Output:: (no urine output recorded) Other Output: (no other output recorded) Drains: none Specimens removed during surgery: Intra-Procedure Orders (From admission, onward) Start Ordered 06/05/21 1155 Specimen to Pathology (Multiple Specimen to Pathology requests panel ) ONE TIME Question Answer Comment Clinical History and Diagnosis: HYPERPARATHYROIDISM Specimen Source: Right lower parathyroid Specimen Type: excision Time specimen removed from patient: 11:46 AM Number of tissue samples (in container) 1 06/05/21 1217 Disposition: awakened from anesthesia, extubated and taken to the recovery room in a stable condition, having suffered no apparent untoward event. Condition: doing well without problems Attestation: Case Date: 06/05/2021 I was present and I participated during the entire procedure (does not need to include opening and closing). (Please see the Surgical Encounter Summary for any Implant and Specimen details pertinent to this patient.) Surgical Infection Prevention Bundle Used? N/A * Op Note - Michelle Corbett MD - 06/05/2021 11:07 AM EST [facility] [place] Patient Name: Pavithra Talavera : [id number] MR#: [id number] Case Date: 06/05/2021 Surgeon: Surgeon(s) and Role: * Michelle Corbett MD - Primary * Brent Melgar MD - Resident Preoperative diagnosis: HYPERPARATHYROIDISM Postoperative diagnosis: HYPERPARATHYROIDISM Procedure(s) (LRB): PARATHYROIDECTOMY OR EXPLORATION OF PARATHYROID(S) (WRVU 15.6) (N/A) FACIAL NERVE MONITORING, SETUP LARYNGEAL (WRVU 1.57) (N/A) Anesthesia: General Estimated Blood Loss: 7cc Specimens removed during surgery: Intra-Procedure Orders (From admission, onward) Start Ordered 06/05/21 1155 Specimen to Pathology (Multiple Specimen to Pathology requests panel ) ONE TIME Question Answer Comment Clinical History and Diagnosis: HYPERPARATHYROIDISM Specimen Source: Right lower parathyroid Specimen Type: excision Time specimen removed from patient: 11:46 AM Number of tissue samples (in container) 1 06/05/21 1217 Drains: * No LDAs found * Surgical Closure: Primary Closure - skin incision is completely closed without any wires, sherrell, drains or other devices Disposition: awakened from anesthesia, extubated and taken to the recovery room in a stable condition, having suffered no apparent untoward event. Condition: doing well without problems (Please see the Surgical Encounter Summary for any Implant and Specimen details pertinent to this patient.) HPI/Surgical Indications: Ms. Pavithra Talavera is a 56 y.o. year old female with symptomatic biochemical primary hyperparathyroidism and a history of nephrolithiasis and markedly elevated urinary calcium. Localization ultrasound indicates a right lower parathyroid abnormality. We discussed the typical work up and management of primary hyperparathyroidism. I therefore recommended minimally invasiveparathyroidectomy with intraoperative parathyroid hormone monitoring. If IOPTH levels do not decrease appropriately, we will proceed with a bilateral exploration. Procedure Description: The patient was taken to the operating room and placed on the operating table in the supine position. Adequate general anesthesia was completed by anesthesiology with the [employer] recurrent laryngeal nerve monitoring system. A crease on the anterior neck was identified and marked, and this area was infiltrated with 10 cc 0.25% marcaine with epinephrine. She was then prepped and draped in the usual sterile fashion over the anterior neck. A timeout procedure was done, and all members of the OR team were in agreement. The procedure began by making a curvilinear incision along the lower anterior neck along the previously marked skin crease with a scalpel. Electrocautery was used to continue dissection through the subcutaneous tissue and through the platysma muscle. Subplatysmal flaps were created in cranial and caudal directions. The median raphe of the strap muscles was divided with electrocautery. We developed a plane between the right strap muscles down to the right internal jugular vein, and oneyda a baseline PTH from the internal jugular vein. IOPTH levels are noted in the table below. We then dissected the strap muscles off the thyroid lobe out to its lateral aspect. The middle thyroidal veins were ligated. We dissected into the paratracheal and paraesophageal space and identified the recurrent laryngeal nerve as it ran into the tracheoesophageal groove and carefully preserved this. We identified a right lower parathyroid gland in the normal anatomic position which was enlarged. We dissected it free onto its vascular pedicle. We oneyda a pre-excision PTH from the internal jugular vein. We then removed the right lower parathyroid gland and ligated its vascular pedicle with a 3-0 silk suture. The gland was passed off the table as a permanent specimen. At 10 and 15 minutes, we oneyda post-excision PTHs from the internal jugular vein. We then irrigated the operative field. A Valsalva to 30 millimeters of mercury was accomplished by Anesthesia. Hemostasis was assured. The recurrent laryngeal nerve was tested again, and it was fullyfunctional on the nerve monitor. We placed Surgicel in the paratracheal space, closed the strap muscles using running 3-0 Vicryl suture, the platysma with interrupted 3-0 Vicryl suture, and the skin with running 5-0 Prolene subcuticular suture. The decreasing values and kinetics of the IOPTH indicated a biochemical cure. We then placed Dermabond on the incision and removed the Prolene suture. IOPTH findings: Baseline: 315 pg/mL Preexcision 73 pg/mL 10-min post-excision 22 pg/mL 15-min post-excision 16 pg/mL Surgical Infection Prevention Bundle Used? N/A Attestation: Case Date: 06/05/2021 I was present and I participated during the entire procedure (does not need to include opening and closing). MICHELLE CORBETT MD 06/05/2021 documented in this encounter Plan of Treatment Not on file documented as of this encounter Procedures Procedure Name Priority Date/Time Associated Diagnosis Comments SURGICAL PATHOLOGY REPORT Routine 06/05/2021 12:18 PM EST SPECIMEN TO PATHOLOGY Routine 06/05/2021 12:18 PM EST HC INTRAOPERATIVE PTH STAT 06/05/2021 12:03 PM EST HC INTRAOPERATIVE PTH STAT 06/05/2021 11:57 AM EST HC INTRAOPERATIVE PTH STAT 06/05/2021 11:44 AM EST HC INTRAOPERATIVE PTH STAT 06/05/2021 11:25 AM EST Needle Electromyography, Larynx Global ([id number]) 06/05/2021 10:24 AM EST HYPERPARATHYROIDIS M Explore Parathyroid Glands ([id number]) 06/05/2021 10:24 AM EST HYPERPARATHYROIDIS M documented in this encounter Results * Surgical Pathology Report (06/05/2021 12:18 PM EST) Final Diagnosis [id number] ? Location: [facility]; [facility]; A The signing pathologist has (i) examined the relevant preparation(s) for the specimen(s) and (ii) rendered or confirmed the diagnosis(es). . ?Surgical Pathology DIAGNOSIS Right lower parathyroid, excision: - Enlarged, hypercellular parathyroid (0.54 g) - Focal atrophic thymic tissue. Electronically signed by: ?MD Maverick, Manish Mcdonald Verified: ??06/08/2021 12:08 ??Pathologist Performed at: ??-[facility] [place], [place], [place] SPECIMEN(S) SUBMITTED A - Right lower parathyroid, excision (1) CLINICAL INFORMATION Hyperparathyroidi sm SPECIMEN PROCESSING A - Labeled/Fixative: Right lower parathyroid, fresh. Quantity/Size/Dash ght: Single, Two fragments#1: 0.7 x 0.4 x 0.3, #2: 1.6 1.1 x 0.7 cm, ??0.54 g, (did not weigh with fat). Tissue Description: Two fragments of soft pink-murrell tissue. Fragment #1 appears to consist of adipose tissue. Sections/Processi ng: Entirely submitted in 3 cassettes as follows: ?A1: ??Fragment soft tissue #1, serially sectioned ?A2-A3: ??Fragment soft tissue #2, serially sectioned ??lv 06/08/2021 12:08 PM EST [facility] PARATHYROID STRUCTURE / Unknown 06/05/2021 12:18 PM EST 06/05/2021 12:18 PM EST Michelle Corbett MD PATHOLOGY/CYTOLOG Y ORDERABLES [facility] [place] [place] [address] * Specimen to Pathology (06/05/2021 12:18 PM EST) AP Specimen 06/05/2021 12:1 8 PM EST 06/05/2021 12:18 PM EST Narrative [facility] - 06/05/2021 12:18 PM EST Specimen requisition ordered. ??Separate Pathology report to follow Michelle Corbett MD PATHOLOGY/CYTOLOG Y ORDERABLES [facility] [place] [address] * Intraoperative PTH [place] (06/05/2021 12:03 PM EST) PTH, Intraoperative 16 15 - 65 pg/mL [facility] Comment: Called by: vince, Read back by: reyna almazan , Date/Time:06/05/21 12:39. 15 min post IO-PTH A 50 % decrease in venous iPTH levels at 10 min post adenoma excision is expected if all the hypersecreting parathyroid tissue has been removed (Aroldo GL et al. Surgery 1993:114; [id number]) Blood 06/05/2021 12:0 3 PM EST 06/05/2021 12:09 PM EST Narrative Resulting Agency Comment Spec In Lab Michelle Corbett MD CHEMISTRY ORDERAB LES Performing Organization Address [facility] Co de Phone Number [facility] [place] [address] * Intraoperative PTH ([facility] (06/05/2021 11:57 AM EST) PTH, Intraoperative 22 15 - 65 pg/mL [facility] Comment: Called by: vince, Read back by: reyna almazan, Date/Time:06/05/21 12:38. 10 min post IO-PTH A 50 % decrease in venous iPTH levels at 10 min post adenoma excision is expected if all the hypersecreting parathyroid tissue has been removed (Aroldo GL et al. Surgery 1993:114; [id number]) Blood 06/05/2021 11:5 7 AM EST 06/05/2021 12:02 PM EST Narrative Resulting Agency Comment Spec In Lab Michelle Corbett MD CHEMISTRY ORDERAB LES Performing Organization Address City/[facility]/ZIP Co de Phone Number [facility] [place] [place] [address] * (ABNORMAL) Intraoperative PTH ([facility] (06/05/2021 11:44 AM EST) PTH, Intraoperative 73(H) 15 - 65 pg/mL [facility] Comment: Called by: vince, Read back by: reyna almazan, Date/Time:06/05/21 12:15. IO-PTH pre excision A 50 % decrease in venous iPTH levels at 10 min post adenoma excision is expected if all the hypersecreting parathyroid tissue has been removed (Aroldo GL et al. Surgery 1993:114; [id number]) Blood 06/05/2021 11:4 4 AM EST 06/05/2021 11:49 AM EST Narrative Resulting Agency Comment Spec In Lab Michelle Corbett MD CHEMISTRY ORDERAB LES Performing Organization Address [facility] de Phone Number [facility] [place] [place] [address] * (ABNORMAL) Intraoperative PTH ([facility] (06/05/2021 11:25 AM EST) PTH, Intraoperative 315(H) 15 - 65 pg/mL [facility] Comment: Called by: vince, Read back by: reyna almazan, Date/Time:06/05/21 12:02. baseline IO-PTH A 50 % decrease in venous iPTH levels at 10 min post adenoma excision is expected if all the hypersecreting parathyroid tissue has been removed (Aroldo GL et al. Surgery 1993:114; [id number]) Blood 06/05/2021 11:2 5 AM EST 06/05/2021 11:32 AM EST Narrative Resulting Agency Comment Spec In Lab Michelle Corbett MD CHEMISTRY ORDERAB LES Performing Organization Address [facility] Co de Phone Number [facility] [place] [address] documented in this encounter Visit Diagnoses Not on filedocumented in this encounter Administered Medications Inactive Administered Medications - up to 3 most recent administrations Medication Order MAR Action Action Date Dose Rate Site acetaminophen (Tylenol) tablet 975 mg 975 mg, Oral, ONCE, 1 dose, On Fri06/05/21 at 1000, Maximum dose of acetaminophen is 4000 mg from all sources in 24 hours. When ordered for pain, acetaminophen should be given even when other ordered pain medications are indicated. , Day of Surgery (Day of Procedure), Routine Given 06/05/2021 9:58 AM EST 975 mg BUpivacaine-EPINEPHrine (Marcaine-epiNEPHrine) 0.25 %-1:200,000 injection ONCE PRN, Starting on Fri06/05/21 at 1105, Until Fri06/05/21 at 1743, Intra-Operative (Intra-Procedure), Routine Given 06/05/2021 11:05 AM EST 10 mLs 19- Surgical Site HYDROmorphone (Dilaudid) (2 mg/mL) multi-dose injection solution 0.4 mg 0.4 mg, Intravenous, EVERY 10 MIN PRN, Starting on Fri06/05/21 at 1235, Until Fri06/05/21 at 1531, Pain, For Moderate to Severe Pain (6-10 out of 10), Hold for respiratory rate less than 10 per minute. Maximum dose 3 mg over one hour including administrations in the OR. If multiple pain medications are ordered, start with HYDROmorphone or morphine and use fentaNYL for breakthrough pain, PACU Recovery, Routine Given 06/05/2021 1:12 PM EST 0.4 mg ketorolac (Toradol) (15 mg/mL) injection 15 mg 15 mg, Intravenous, ONCE, 1 dose, On Fri06/05/21 at 1415, Routine Given 06/05/2021 1:57 PM EST 15 mg lactated ringers infusion 1,000 mL, at 100 mL/hr, Intravenous, CONTINUOUS, Starting on Fri06/05/21 at 1000, Until Fri06/05/21 at 1531, Day of Surgery (Day of Procedure) New Bag 06/05/2021 10:14 AM EST 1,000 mLs 100 mL/hr documented in this encounter Active and Recently Administered Medications Times are shown in EST. Scheduled Medication Order 06/03/2021 06/04/2021 06/05/2021 acetaminophen (Tylenol) tablet 975 mg (COMPLETED) 975 mg, Oral, ONCE, 1 dose, On Fri06/05/21 at 1000, Maximum dose of acetaminophen is 4000 mg from all sources in 24 hours. When ordered for pain, acetaminophen should be given even when other ordered pain medications are indicated. , Day of Surgery (Day of Procedure), Routine 09 (Given - Provid er: Zayda Goldman RN) ketorolac (Toradol) (15 mg/mL) injection 15 mg (COMPLETED) 15 mg, Intravenous, ONCE, 1 dose, On Fri06/05/21 at 1415, Routine 1357 (Given - Provid er: Princess Pinon RN) Continuous Medication Order 06/03/2021 06/04/2021 06/05/2021 lactated ringers infusion (CANCELED) 1,000 mL, at 100 mL/hr, Intravenous, CONTINUOUS, Starting on Fri06/05/21 at 1000, Until Fri06/05/21 at 1531, Day of Surgery (Day of Procedure) 1014 (New Bag - Prov ider: Zayda Goldman RN) PRN Medication Order 06/03/2021 06/04/2021 06/05/2021 BUpivacaine-EPINEPHrine (Marcaine-epiNEPHrine) 0.25 %-1:200,000 injection (CANCELED) ONCE PRN, Starting on Fri06/05/21 at 1105, Until Fri06/05/21 at 1743, Intra-Operative (Intra-Procedure), Routine 1105 (Given - Provid er: Brent Melgar MD) HYDROmorphone (Dilaudid) (2 mg/mL) multi-dose injection solution 0.4 mg (CANCELED)(Linked Group 1) 0.4 mg, Intravenous, EVERY 10 MIN PRN, Starting on Fri06/05/21 at 1235, Until Fri06/05/21 at 1531, Pain, For Moderate to Severe Pain (6-10 out of 10), Hold for respiratory rate less than 10 per minute. Maximum dose 3 mg over one hour including administrations in the OR. If multiple pain medications are ordered, start with HYDROmorphone or morphine and use fentaNYL for breakthrough pain, PACU Recovery, Routine 1312 (Given - Provid er: Sultana Bowie RN) Linked Groups Order Group 1: HYDROmorphone (Dilaudid) (2 mg/mL) multi-dose injection solution 0.2 mg (CANCELED) 0.2 mg, Intravenous, EVERY 10 MIN PRN, Starting on Fri06/05/21 at 1235, Until Fri06/05/21 at 1531, Pain, For Mild to Moderate Pain (1-5 out of 10), Hold for respiratory rate less than 10 per minute. Maximum dose 3 mg over one hour including administrations in the OR. If multiple pain medications are ordered, start with HYDROmorphone or morphine and use fentaNYL for breakthrough pain, PACU Recovery, Routine Or HYDROmorphone (Dilaudid) (2 mg/mL) multi-dose injection solution 0.4 mg (CANCELED)Jump to med 0.4 mg, Intravenous, EVERY 10 MIN PRN, Starting on Fri06/05/21 at 1235, Until Fri06/05/21 at 1531, Pain, For Moderate to Severe Pain (6-10 out of 10), Hold for respiratory rate less than 10 per minute. Maximum dose 3 mg over one hour including administrations in the OR. If multiple pain medications are ordered, start with HYDROmorphone or morphine and use fentaNYL for breakthrough pain, PACU Recovery, Routine documented in this encounter Care Teams Clerical Specialist Relationship Specialty Start Date End Date Diana Torres APRN [address] [place] [id number] PCP - General Family Medicine 02/21/21 documented as of this encounter
--- OUTSIDE RECORDS SUMMARY | 2024-01-06 11:51 | XMS_ITS | Encounter Summary ---
Author Organization [facility] Address [address] [place] [address] Care Team Providers Care Discovery Guide Name Role Phone Mariusz Arroyo MD Primary Care Provider [phone] Reason for Visit * Reason Comments Thyroid Problem NPV Encounter Details Date Type Department Care Team (Latest Contact Info) Description 11/05/2011 15:30 EDT Office Visit [facility] Endocrinology - [address] [address] Laurel Pathak MD Hypercalcemia (Primary Dx); Primary hyperparathyroidism (HCC-CMS); Vitamin D deficiency; Essential hypertension, benign Social History Tobacco Use Types Packs/Day Years Used Date Smoking Tobacco: Never Smokeless Tobacco: Never Alcohol Use Standard Drinks/Week Comments No 0 (1 standard drink = 0.6 oz pur e alcohol) Sex and Gender Information Value Date Recorded Sex Assigned at Not on file Gender Identity Not on file Sexual Orientation Not on file documented as of this encounter Last Filed Vital Signs Vital Sign Reading Time Taken Comments Blood Pressure 132/82 11/05/2011 1554 EDT Pulse 68 11/05/2011 1554 EDT Temperature - - Respiratory Rate - - Oxygen Saturation - - Inhaled Oxygen Concentration - - Weight 102.5 kg (226 lb) 11/05/2011 1554 EDT Height 167.6 cm (5' 6) 11/05/2011 1554 EDT Body Mass Index 36.48 11/05/2011 1554 EDT documented in this encounter Ordered Prescriptions Prescription Sig Dispensed Refills Start Date End Da te cholecalciferol, Vitamin D3, 50,000 unit capsuleIndications:Vitamin D deficiency Take 1 Cap by mouth every Mon, Wed, Fri (Dialysis). 12 Cap 0 11/06/2011 bisoprolol (ZEBETA) 5 mg tabletIndications:Essentia l hypertension, benign Take 0.5 Tabs by mouth daily. 30 Tab 11 11/05/2011 12/20/2011 documented in this encounter Progress Notes * Laurel Pathak MD - 11/05/2011 4293 EDT Subjective: Patient ID: Pavithra Talavera is an 46 y.o. female. Chief Complaint Patient presents with ??? Hypercalcemia , Hyperparathyroidism, Vitamin d deficiency HPI 46 y/o pleasant white female, seen today for evaluation of abnormal lab work. She has history of hypothyroidism and has been on thyroid replacement therapy (88 mcg) for years. More recently she started complaining for increased tiredness, lethargy, fatigue, forgetfulness, foggy mind. She also complained of right knee pain, worse after playing volley ball, diagnosed as arthritis and she is currently wearing a knee brace. This all triggered further testing and showed elevated calcium level (10.3) . No information on albumin is available, so it appears to be not corrected. No ionized calcium. Her PTH was also borderline elevated. Vitamin D was low. She has not been on any vitamin D or calcium supplements. She does take HCTZ in combination with Bisoprolol and has been on this medication forlast 20 years (Started after diagnosed with HTN in ) No history of kidney stones. Does complain of on & off abdominal pain in the setting of diagnosis of IBS, vague, mainly in RUQ, feels like pressure. No nausea, no vomiting. On & off constipation, not worrisome for her. Her main complaint does seem to be feeling tired all the time, forgetfulness and mind fog. She reports weight gain since her hysterectomy. No use of HRT. No anorexia, polyuria or polydipsia. Patient Active Problem List Diagnoses ??? Hypothyroidism ??? Status post hysterectomy Past Medical History Diagnosis Date ??? Allergy ??? Arthritis ??? Hypertension ??? Thyroid disease Past Surgical History Procedure Date ??? Appendectomy ??? Cholecystectomy ??? Hysterectomy 2009 ??? Tonsillectomy ??? Ovarian cyst removal ??? Incontinence surgery Family History Problem Relation Age of Onset Appendix removed Sister Hypertension, gall bladder removal Mother Alive ??? Heart Disease Father , age 58 Social History Social History ??? Marital Status: , lives in [facility] Number of Children: 4 Occupational History ??? Works at a [employer] Social History Main Topics ??? Smoking status: Never Smoker ??? Smokeless tobacco: Never Used ??? Alcohol Use: No ??? Drug Use: No Medication Sig ??? levothyroxine (SYNTHROID) 88 mcg tablet Take 88 mcg by mouth daily. ??? lorazepam (ATIVAN) 0.5 mg tablet Take 1 mg by mouth as needed. ??? pantoprazole (PROTONIX) 20 mg tablet Take 20 mg by mouth as needed. ??? naproxen sodium (ALEVE) 220 mg tablet Take 220 mg by mouth every 12 hours as needed. ??? bisoprolol 2.5 mg / HCTZ 6.25 mg tablet Take 1 Tabs by mouth daily. Allergies Allergen Reactions ??? Benzoate Derivatives Hives and Rash ??? Latex, Natural Rubber Rash ??? Levaquin (Levofloxacin) Rash DIZZINESS ??? Narcotic Antagonist Nausea And Vomiting ??? Sulfa(Sulfonamide Antibiotics) Rash Review of Systems Constitutional: Positive for malaise/fatigue. Negative for fever, chills, weight loss and diaphoresis. HENT: Negative for hearing loss, ear pain, nosebleeds, congestion, neck pain and tinnitus. Eyes: Negative for blurred vision, double vision, photophobia, pain and discharge. Respiratory: Negative for cough, hemoptysis, sputum production and shortness of breath. Cardiovascular: Negative for chest pain, palpitations, orthopnea, claudication, leg swelling and PND. Gastrointestinal: Positive for abdominal pain and constipation. Negative for heartburn, nausea, vomiting and diarrhea. Genitourinary: Negative for dysuria, urgency and frequency. Musculoskeletal: Positive for myalgias and joint pain (right knee). Negative for back pain and falls. Skin: Negative for itching and rash. Neurological: Negative for dizziness, tingling, tremors, sensory change, speech change, focal weakness, seizures, loss of consciousness, weakness and headaches. Mind fog. Endo/Heme/Allergies: Negative for environmental allergies and polydipsia. Does not bruise/bleed easily. Psychiatric/Behavioral: Positive for memory loss. Negative for depression, suicidal ideas, hallucinations and substance abuse. The patient has insomnia. The patient is not nervous/anxious. - See HPI Objective: BP 132/82 Pulse 68 Ht 167.6 cm (66) Wt 102.513 kg (226 lb) BMI 36.48 kg/m2 Physical Exam Constitutional: She is oriented to person, place, and time. She appears well- developed and well-nourished. No distress. HENT: Head: Normocephalic and atraumatic. Right Ear: External ear normal. Left Ear: External ear normal. Nose: Nose normal. Mouth/Throat: Oropharynx is clear and moist. No oropharyngeal exudate. Eyes: Conjunctivae and EOM are normal. Pupils are equal, round, and reactive to light. Right eye exhibits no discharge. Left eye exhibits no discharge. No scleral icterus. Neck: Normal range of motion. Neck supple. No JVD present. No tracheal deviation present. No thyromegaly present. Cardiovascular: Normal rate and intact distal pulses. Exam reveals no friction rub. No murmur heard. Pulmonary/Chest: Effort normal and breath sounds normal. No stridor. No respiratory distress. She has no wheezes. She has no rales. Abdominal: Soft. Bowel sounds are normal. She exhibits no distension. There is no tenderness. Thereis no rebound. Musculoskeletal: Normal range of motion. Limited range of motion and crepitus right knee joint. Lymphadenopathy: She has no cervical adenopathy. Neurological: She is alert and oriented to person, place, and time. She has normal reflexes. She displays normal reflexes. She exhibits normal muscle tone. Coordination normal. Skin: Skin is warm and dry. No rash noted. She is not diaphoretic. No erythema. No pallor. Psychiatric: She has a normal mood and affect. Her behavior is normal. Judgment and thought contentnormal. Labs: 10/08/11 Calcium : 10.3 iPTH: 74 (upper limit of normal is 72) Vitamin D: 18.9 TSH: 2.33 Mention of elevated LFT's and Alk phos in the note from PCP. Assessment: 1) Hypercalcemia / Primary Hyperparathyroidism: Appears to be secondary to primary hyperparathyroidism in the setting of elevated parathyroid hormone level. The patient has also been on minimal dose of hydrochlorothiazide for last 20 years. She isalso Vitamin D deficient. Plan is to discontinue her hydrochlorothiazide, correct her Vitamin D deficiency and recheck calcium (Corrected with simultaneously checked albumin, intact parathyroid hormone and 24 hour urinary calcium after 4 weeks. 24 hour urine shall also help to distinguish between primary hyperparathyroidism versus FHH (Familial hypo calciuric hypercalcemia) She is willing to go for surgery if that is the case. If her problem persists we'll order the parathyroid nuclear scan. 2) Vitamin D Deficiency: We'll give her high dose Cholecalciferol for 4 weeks and recheck it along with the above mentioned labs. 3) Hypertension: Combination pill of bisoprolol and HCTZ is discontinued. She'll continue to take only Bisoprolol at present, 2.5 mg daily. If her BP runs high, she'll double this dose. Plan: - Discontinue Bisoprolol/HCTZ combination pill. Only take Bisoprolol 2.5 mg daily, increase the dose to 5 mg if BP is persistently elevated. - Take cholecalciferol, Vitamin D3, 50,000 unit capsule; Take 1 Cap by mouth every Mon, Wed, Fri. For 4 weeks. - CMP, PTH, 24 hours urine calcium in 5th week (She'll have those done where she lives) - Sestamibi Scintigraphy to be ordered next, if problem persists. Attestation: I saw and examined the patient with the resident/fellow 11/05/2011. I agree with the findings and plan of care documented in the resident's/fellow's note. Ms. Talavera denies a hx of fractures and has never had a DEXA. We have no reason to suspect osteopenia or osteoporosis at this time. If we confirm primary hyperparathyroidism, we will check a DEXA to be sure her bone density doesn't me rit therapy. Quinten Albert MD 11/06/2011 9:54 documented in this encounter Plan of Treatment Not on file documented as of this encounter Visit Diagnoses Diagnosis Hypercalcemia- Primary Primary hyperparathyroidism (HCC-CMS) Primary hyperparathyroidism Vitamin D deficiency Unspecified vitamin D deficiency Essential hypertension, benign documented in this encounter Discontinued Medications Medication Sig Discontinue Reason Start Date End Da te bisoprolol-hydrochlorothi azide (ZIAC) 2.5-6.25 mg per tablet Take 1 Tab by mouth daily. Side effects 11/05/2011 documented as of this encounter Historical Medications * This list may reflect changes made after this encounter. Medication Sig Dispensed Refills Start Date End Date Milk Thistle 200 mg cap Take by mouth. naproxen sodium (ALEVE) 220 mg tablet Take 220 mg by mouth every 12 hours as needed. pantoprazole (PROTONIX) 20 mg tablet Take 20 mg by mouth as needed. lorazepam (ATIVAN) 0.5 mg tablet Take 1 mg by mouth as needed. levothyroxine (SYNTHROID) 88 mcg tablet Take 88 mcg by mouth daily. bisoprolol-hydrochlorothi azide (ZIAC) 2.5-6.25 mg per tablet Take 1 Tab by mouth daily. 11/05/2011 added in this encounter Care Teams Discovery Guide Relationship Specialty Start Date End Date Mariusz Arroyo MD [address] [place] [address] PCP - General 06/27/09 documented as of this encounter
--- OUTSIDE RECORDS SUMMARY | 2024-01-06 11:51 | XMS_ITS | Clinical Summary ---
Author Organization [facility] Address [address] [place] [address] Care Team Providers Care Regulatory Leader Name Role Phone Mariusz Arroyo MD Primary Care Provider [phone] Allergies Active Allergy Reactions Criticality Noted Date Comments Benzoate Analogues Hives,Rash 11/05/2011 Latex, Natural Rubber Rash 11/05/2011 Levofloxacin Rash 11/05/2011 DIZZINESS Narcotic Antagonist Nausea And Vomiting 012 Sulfa (Sulfonamide Antibiotics) Rash 11/05/2011 Medications Medication Sig Dispensed Refills Start Date End Date Status levothyroxine (SYNTHROID) 88 mcg tablet Take 88 mcg by mouth daily. Active lorazepam (ATIVAN) 0.5 mg tablet Take 1 mg by mouth as needed. Active pantoprazole (PROTONIX) 20 mg tablet Take 20 mg by mouth as needed. Active naproxen sodium (ALEVE) 220 mg tablet Take 220 mg by mouth every 12 hours as needed. Active cholecalciferol, Vitamin D3, 50,000 unit capsuleIndications:Alana min D deficiency Take 1 Cap by mouth every Mon, Wed, Fri (Dialysis). 12 Cap 0 11/06/2011 Active Milk Thistle 200 mg cap Take by mouth. Active bisoprolol (ZEBETA) 5 mg tabletIndications:Essen tial hypertension, benign Take 1 Tab by mouth daily. 90 Tab 11 12/20/2011 Active Active Problems Problem Noted Date Diagnosed Date Hypothyroidism 11/05/2011 Overview: ICD10 Update Auto Replacement Status post hysterectomy 11/04/2009 Surgical History Surgery Date Site/Laterality Comments APPENDECTOMY CHOLECYSTECTOMY HYSTERECTOMY TONSILLECTOMY OVARIAN CYST REMOVAL INCONTINENCE SURGERY Medical History Medical History Date Comments Allergy Arthritis Hypertension Thyroid disease Family History Medical History Relation Comments Heart Disease Father Relation Status Comments Father Mother Alive Sister Alive Social History Tobacco Use Types Packs/Day Years Used Date Smoking Tobacco: Never Smokeless Tobacco: Never Alcohol Use Standard Drinks/Week Comments No 0 (1 standard drink = 0.6 oz pur e alcohol) Sex and Gender Information Value Date Recorded Sex Assigned at Not on file Gender Identity Not on file Sexual Orientation Not on file Obstetrics History Last Filed Vital Signs Vital Sign Reading Time Taken Comments Blood Pressure 132/82 11/05/2011 1554 EDT Pulse 68 11/05/2011 1554 EDT Temperature - - Respiratory Rate - - Oxygen Saturation - - Inhaled Oxygen Concentration - - Weight 102.5 kg (226 lb) 11/05/2011 1554 EDT Height 167.6 cm (5' 6) 11/05/2011 1554 EDT Body Mass Index 36.48 11/05/2011 1554 EDT Plan of Treatment Health Maintenance Due Date Last Done Comments Hepatitis C Screen 1965 Hepatitis B Vaccine (1 of 3 - 19+ 3-dose series) 01/22 COVID-19 Vaccine ( - 2022- season) 2022 Care Teams Regulatory Leader Relationship Specialty Start Date End Date Mariusz Arroyo MD [address] [place] [address] PCP - General 06/27/09
--- OUTSIDE RECORDS SUMMARY | 2024-01-06 11:51 | XMS_ITS | Encounter Summary ---
Author Organization [facility] Address [address] [place] [address] Care Team Providers Care Food Preparer Name Role Phone Mariusz Arroyo MD Primary Care Provider [phone] Encounter Details Date Type Department Care Team (Late st Contact Info) Description 05/17/2005 Results Only [facility] [address] [place] [address] Heraclio Brooks MD Social History Tobacco Use Types Packs/Day Years Used Date Smoking Tobacco: Never Assessed Sex and Gender Information Value Date Recorded Sex Assigned at Not on file Gender Identity Not on file Sexual Orientation Not on file documented as of this encounter Plan of Treatment Not on file documented as of this encounter Procedures Procedure Name Priority Date/Time Associated Diagnosis Comments CYTOPATHOLOGY Routine 05/17/2005 0:00 EST documented in this encounter Results * CYTOPATHOLOGY (05/17/2005 0:00 EST) Pathology Report: CYTOPATHOLOGY REPORT Reports generated via electronic interface contain original data; however they are lacking the format of the original report. Caution should be taken when reading/interpreti ng unformatted reports. Name: ? PAVITHRA TALAVERA ? Accession #: ? [id number] : ? 1965 (Age: 40) ??F ?Collect Date: ? 05/17/2005 Location: ? [facility] ? Receive Date: ? 05/20/2005 Provider: ?HERACLIO BROOKS MD Copy to: ? Specimen/Source: ?ThinPrep Pap Test, Cervix/Endocervix, processed on [employer] ThinPrep Imaging System, with manual evaluation Last Menstrual Period: ? 04/27/05 Other: ? HPVA - HPV testing requested if ASC-US on the current ThinPrep Pap test. Additional clinical information: Previous paps WNL ? SPECIMEN ADEQUACY ? Satisfactory for Evaluation - transformation zone component present GENERAL CATEGORIZATION ? Negative for Intraepithelial Lesion or Malignancy ? Document reviewed and electronically signed by: ? BONIFACIO Zurita(ASCP) ? Report Date: ??05/21/2005 11:19 End of Report [facility] 05/17/2005 05/20/2005 Heraclio Brooks MD PATHOLOGY ORDERABLES [facility] [address] [place] [address] documented in this encounter Visit Diagnoses Not on filedocumented in this encounter Care Teams Food Preparer Relationship Specialty Start Date End Date Mariusz Arroyo MD [address] [place] [address] PCP - General 06/27/09 documented as of this encounter
--- OUTSIDE RECORDS SUMMARY | 2024-01-06 11:51 | XMS_ITS | Encounter Summary ---
Author Organization [facility] Address [address] [place] [address] Care Team Providers Care Test Worker Name Role Phone Mariusz Arroyo MD Primary Care Provider [phone] Encounter Details Date Type Department Care Team (Late st Contact Info) Description 08/14/2022 Lab Requisition [facility] Pathology & Laboratory Medicine - [address] [address] Outr Resulting Lab, Provider Social History Tobacco Use Types Packs/Day Years [...] Procedure Name Priority Date/Time Associated Diagnosis Comments VITAMIN D (25,OH) Routine 08/14/2022 10: 23 EDT documented in this encounter Results * VITAMIN D (25,OH) (08/14/2022 10:23 EDT) 25OH Vitamin D Tot 35 30 - 100 ng/mL 08/15/2022 9:02 EDT [facility] Comment: Vitamin D 25,OH Interpretive Ranges: Deficiency: ??<10.0 ng/mL Insufficiency: ??10.0 - 30.0 ng/mL Sufficiency: ??30.0 - 100.0 ng/mL Toxicity: ??>100.0 ng/mL Blood VENOUS BLOOD / Unknown 08/14/2022 10:23 EDT 08/14/2022 21:39 EDT Provider Outr Resulting Lab CHEMISTRY & BLOOD GAS ORDERABLES [facility] [address] [place] [address] documented in this encounter Visit Diagnoses Not on filedocumented in this encounter Care Teams Test Worker Relationship Specialty Start Date End Date Mariusz Arroyo MD [address] [place] [address] PCP - General 06/27/09 documented as of this encounter
--- OUTSIDE RECORDS SUMMARY | 2024-01-06 11:51 | XMS_ITS | Encounter Summary ---
Author Organization [facility] Address [address] [place] [address] Care Team Providers Care Continuous Improvement Director Name Role Phone Mariusz Arroyo MD Primary Care Provider [phone] Encounter Details Date Type Department Care Team (Late st Contact Info) Description 05/22/2001 Results Only [facility] [address] [place] [address] Heraclio Brooks MD Social History Tobacco Use [...] Priority Date/Time Associated Diagnosis Comments CYTOPATHOLOGY Routine 05/22/2001 0:00 EST documented in this encounter Results * CYTOPATHOLOGY (05/22/2001 0:00 EST) Pathology Report: CYTOPATHOLOGY REPORT Reports generated via electronic interface contain original data; however they are lacking the format of the original report. Caution should be taken when reading/interpreti ng unformatted reports. Name: ? PAVITHRA TALAVERA ? Accession #: ? [id number] : ? 1965 (Age: 36) ??F ?Collect Date: ? 05/22/2001 Location: ? [facility] ? Receive Date: ? 05/25/2001 Provider: ?HERACLIO BROOKS MD Copy to: ? Specimen/Source: ?ThinPrep Pap Test, Cervix/Endocervix Last Menstrual Period: ? 03/05/01 Menstrual/Pregnanc y Status: ? Other: ? Client ID#: [id number] ? SPECIMEN ADEQUACY ? Satisfactory for Evaluation - transformation zone component present GENERAL CATEGORIZATION ? Negative for Intraepithelial Lesion or Malignancy ? Document reviewed and electronically signed by: ? BONIFACIO Sweet(ASCP) ? Report Date: ??05/27/2001 08:41 End of Report ONEYDA ALLEN 05/22/2001 05/25/2001 Heraclio Brooks MD PATHOLOGY ORDERABLES Performing Organization Address City/State/[facility] Co de Phone Number ONEYDA HEREDIA [facility] [address] [place] [address] documented in this encounter Visit Diagnoses Not on filedocumented in this encounter Care Teams Continuous Improvement Director Relationship Specialty Start Date End Date Mariusz Arroyo MD [address] [place] [id number] PCP - General 06/27/09 documented as of this encounter
--- OUTSIDE RECORDS SUMMARY | 2024-01-06 11:51 | XMS_ITS | Encounter Summary ---
[place] [address] Care Team Providers Care Stripper Apprentice Name Role Phone Diana Torres APRN Primary Care Provider [phone] Encounter Details Date Type Department Care Team (Late st Contact Info) Description 08/28/2021 Orders [place] [address] Makenzie Salazar MD [facility] [address] S/P parathyroidectomy Social History Tobacco Use Types Packs/Day Years Used Date Smoking Tobacco: Never Smokeless Tobacco: Never Sex and Gender Information Value Date Recorded Sex Assigned at Not on file Gender Identity Not on file Sexual Orientation Not on file documented as of this encounter Plan of Treatment Not on file documented as of this encounter Visit Diagnoses Diagnosis S/P parathyroidectomy Other postprocedural status documented in this encounter Care Teams Stripper Apprentice Relationship Specialty Start Date End Date Diana Torres APRN [address] [place] [id number] PCP - General Family Medicine 02/21/21 documented as of this encounter
--- OUTSIDE RECORDS SUMMARY | 2024-01-06 11:51 | XMS_ITS | Continuity of Care Document ---
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 Role Phone Diana Torres Primary Care Physician [phone] Encounter [facility] Date(s): 05/10/22 - 05/10/[address] [phone] [place] Encounter Diagnosis Acute sinusitis(Discharge Diagnosis) - 05/10/22 Discharge Disposition: Home or Self Care Attending Physician: Rashel Schuster MD Admitting Physician: Rashel Schuster MD Allergies, Adverse Reactions, Alerts Substance Reaction Severity Status LATEX Urticaria Unknown Active ciprofloxacin Unknown Active codeine Unknown Active nitrofurantoin Unknown Active tetracaine Skin rash Unknown Active benzoin topical Skin rash Unknown Active sulfa drugs Unknown Active Compazine Confusion Severe Active levoFLOXacin Skin rash Unknown Active Assessment and Plan Future Appointments Future Scheduled Tests Radiology* CT Renal Stone Study 08/26/22 Functional Status 05/10/22 Family Member [facility] Recent Travel History No recent travel Other exposure to Infectious Disease Non e Immunizations Given and Recorded Vaccine Date Status Refusal Reason SARS-CoV-2 (COVID-19) mRNA-1273 vaccine 07/27/20 R ecorded SARS-CoV-2 (COVID-19) mRNA-1273 vaccine 06/29/20 R ecorded influenza virus vaccine, inactivated 04/14/00 Tera rded tetanus-diphth toxoids (Td) adult/adol 04/14/00 Re corded Medications !-Augmentin 875 mg-125 mg oral tablet 1 tab, Oral, every 12 hr, # 20 tab, 0 Refill(s), Pharmacy: [facility] #[id number], 170.1, cm, 05/10/22 13:25:00 EST, Height/Length [...] 0 Refill(s) Start Date: 05/10/22 Status: Ordered Mis Prescription 0 Refill(s) Start Date: 09/14/21 Status: Ordered spironolactone 50 mg oral tablet 50 mg = 1 tab, Oral, Daily, # 30 tab, 0 Refill(s) Start Date: 05/10/22 Status: Ordered tamsulosin 0.4 mg oral capsule 0.4 mg = 1 cap, Oral, Daily, PRN other (see comment), # 30 cap, 1 Refill(s), Pharmacy: [id number] Start Date: 02/21/22 Stop Date: 04/22/22 [...] 9age 16 Results Laboratory List Name Date Blood Gas Venous 05/10/22 CBC w/ Diff 05/10/22 Comprehensive Metabolic Panel 05/10/22 SARS-CoV-2 (COVID-19)/Flu/RSV (GeneXpert ) 05/10/22 Troponin-I 05/10/22 Automated Diff 05/10/22 Most recent to oldest [Reference Range]: 1 WBC [5.0-10.0 x10^3/mcL] 10.4 x10^3/mcL *HI* (05/10/22 2:07 PM) RBC [4.1-5.3 x10^6/mcL] 5.9 x10^6/mcL *HI* (05/10/22 2:07 PM) Neutro Auto [40.0-75.0 %] 62.8 % (05/10/22 2:07 PM) Lymph Auto [20.0-50.0 %] 27.3 % (05/10/22 2:07 PM) [place] Auto [2.0-15.0 %] 8.7 % (05/10/22 2:07 PM) Basophil Auto [0.0-1.0 %] 0.6 % (05/10/22 2:07 PM) BUN [7-18 mg/dL] 18 mg/dL (05/10/22 2:07 PM) Glucose Level [74-106 mg/dL] 95 mg/dL (05/10/22 2:07 PM) Potassium Level [3.5-5.1 mmol/L] 3.7 mmo l/L (05/10/22 2:07 PM) MCV [80.0-96.0] 88.5 (05/10/22 2:07 PM) CO2 Total Venous 31 mmol/L *NA* (05/10/22 2:07 PM) HCO3 Venous [22-30 mmol/L] 30 mmol/L (05/10/22 2:07 PM) AST [15-37 unit/L] 36 unit/L (05/10/22:07 PM) ALT [14-59 unit/L] 53 unit/L (05/10/22:07 PM) MCHC [31.0-35.0 g/dL] 34.0 g/dL (05/10/22:07 PM) Troponin-I [0.0-51.4 pg/mL] 7.8 pg/mL (05/10/22:07 PM) Sodium Level [136-145 mmol/L] 140 mmol/L (05/10/22 2:07 PM) Hct [37.0-47.0 %] 52.1 % *HI* (05/10/22:07 PM) Calcium Level [8.5-10.1 mg/dL] 10.2 mg/d L *HI* (05/10/22 2:07 PM) Albumin Level [3.4-5.0 g/dL] 4.2 g/dL (05/10/22 2:07 PM) Protein Total [6.4-8.2 g/dL] 8.4 g/dL *HI* (05/10/22 2:07 PM) MCH [26.0-32.0 pg] 30.1 pg (05/10/22:07 PM) Neutro Absolute 6.6 x10^3/mcL *NA* (05/10/22 2:07 PM) Bilirubin Total [0.2-1.0 mg/dL] 0.6 mg/d L (05/10/22 2:07 PM) Hgb [12.0-16.0 g/dL] 17.7 g/dL *HI* (05/10/22 2:07 PM) Alk Phos [46-146 unit/L] 141 unit/L (05/10/22 2:07 PM) pCO2 Aron [33-47 mmHg] 47 mmHg (05/10/22 2:07 PM) Platelets [130-450 x10^3/mcL] 238 x10^3/ mcL (05/10/22 2:07 PM) CO2 [21-32 mmol/L] 28 mmol/L (05/10/22 2:07 PM) pO2 Aron 34 mmHg *NA* (05/10/22 2:07 PM) pH Aron [7.32-7.43 pH unit(s)] 7.41 pH un it(s) (05/10/22 2:07 PM) O2 Sat Aron 68 % *NA* (05/10/22 2:07 PM) eGFR Non-AA [>=60] 75 (05/10/22 2:07 PM) eGFR AA [>=60] 75 (05/10/22 2:07 PM) Base Excess Venous 4.1 mmol/L *NA* (05/10/22 2:07 PM) Chloride Level [98-107 mmol/L] 100 mmol/ L (05/10/22 2:07 PM) RDW-CV [11.7-17.0 %] 12.7 % (05/10/22 2:07 PM) Imm Gran Auto [0.0-0.9 %] 0.4 % (05/10/22 2:07 PM) Creatinine Level [0.55-1.02 mg/dL] 0.90 mg/dL (05/10/22 2:07 PM) Employed in healthcare? Unknown *NA* (05/10/22 2:07 PM) Symptomatic as defined by CDC? Unknown *NA* (05/10/22 2:07 PM) Hospitalized due to COVID-19? Unknown *NA* (05/10/22 2:07 PM) In ICU? Unknown *NA* (05/10/22 2:07 PM) Group care resident? Unknown *NA* (05/10/22 2:07 PM) status? Unknown *NA* (05/10/22 2:07 PM) SARS-CoV-2(Covid19)PCR(GXpert COVFLURSV) [Negative] Negative (05/10/22 2:07 PM) Flu A (GXpert COVFLURSV) [Negative] Nega tive (05/10/22 2:07 PM) RSV (GXpert COVFLURSV) [Negative] Negati ve (05/10/22 2:07 PM) Flu B (GXpert COVFLURSV) [Negative] Nega tive (05/10/22 2:07 PM) Eos, Auto [1.0-6.0 %] 0.2 % *LOW* (05/10/22 2:07 PM) MDW [0-20] 2 (05/10/22 2:07 PM) Vital Signs Most recent to oldest [Reference Range]: 1 2 Temperature Temporal Artery [36-38 Deg C ] 36.4 Deg C (05/10/22 1:13 PM) Peripheral Pulse Rate [60-100 bpm] 64 bp m (05/10/22 3:42 PM) 99 bpm (05/10/22 1:13 PM) Respiratory Rate [12-24 br/min] 18 br/mi n (05/10/22 3:42 PM) 16 br/min (05/10/22 1:13 PM) Blood Pressure [90-140/60-90 mmHg] 173/9 4mmHg *HI* (05/10/22 3:42 PM) 171/97mmHg *HI* (05/10/22 1:13 PM) Weight Dosing 130.60 kg (05/10/22 1:25 PM) Weight Estimated 130.60 kg (05/10/22 1:13 PM) Height/Length Dosing 170.100 cm (05/10/22 1:25 PM) Height/Length Estimated 170.100 cm (05/10/22 1:13 PM) Social History Social History Type Response Tobacco Never tobacco user T obacco Use:. Sex Female Hospital Discharge Instructions Patient Education 05/10/2022 14:24:40 Sinusitis, Adult Sinusitis, Adult Sinusitis is inflammation of your sinuses. Sinuses are hollow spaces in the bones around your face.Your sinuses are located: ??? Around your eyes. ??? In the middle of your forehead. ??? Behind your nose. ??? In your cheekbones. Mucus normally drains out of your sinuses. When your nasal tissues become inflamed or swollen, mucus can become trapped or blocked. This allows bacteria, viruses, and fungi to grow, which leads to infection. Most infections of the sinuses are caused by a virus. Sinusitis can develop quickly. It can last for up to 4 weeks (acute) or for more than 12 weeks (chronic). Sinusitis often develops after a cold. What are the causes? This condition is caused by anything that creates swelling in the sinuses or stops mucus from draining. This includes: ??? Allergies. ??? Asthma. ??? Infection from bacteria or viruses. ??? Deformities or blockages in your nose or sinuses. ??? Abnormal growths in the nose (nasal polyps). ??? Pollutants, such as chemicals or irritants in the air. ??? Infection from fungi (rare). What increases the risk? You are more likely to develop this condition if you: ??? Have a weak body defense system (immune system). ??? Do a lot of swimming or diving. ??? Overuse nasal sprays. ??? Smoke. What are the signs or symptoms? The main symptoms of this condition are pain and a feeling of pressure around the affected sinuses.Other symptoms include: ??? Stuffy nose or congestion. ??? Thick drainage from your nose. ??? Swelling and warmth over the affected sinuses. ??? Headache. ??? Upper toothache. ??? A cough that may get worse at night. ??? Extra mucus that collects in the throat or the back of the nose (postnasal drip). ??? Decreased sense of smell and taste. ??? Fatigue. ??? A fever. ??? Sore throat. ??? Bad breath. How is this diagnosed? This condition is diagnosed based on: ??? Your symptoms. ??? Your medical history. ??? A physical exam. ??? Tests to find out if your condition is acute or chronic. This may include: ??? Checking your nose for nasal polyps. ??? Viewing your sinuses using a device that has a light (endoscope). ??? Testing for allergies or bacteria. ??? Imaging tests, such as an MRI or CT scan. In rare cases, a bone biopsy may be done to rule out more serious types of fungal sinus disease. How is this treated? Treatment for sinusitis depends on the cause and whether your condition is chronic or acute. ??? If caused by a virus, your symptoms should go away on their own within 10 days. You may be given medicines to relieve symptoms. They include: ??? Medicines that shrink swollen nasal passages (topical intranasal decongestants). ??? Medicines that treat allergies (antihistamines). ??? A spray that eases inflammation of the nostrils (topical intranasal corticosteroids). ??? Rinses that help get rid of thick mucus in your nose (nasal saline washes). ??? If caused by bacteria, your health care provider may recommend waiting to see if your symptoms improve. Most bacterial infections will get better without antibiotic medicine. You may be given antibiotics if you have: ??? A severe infection. ??? A weak immune system. ??? If caused by narrow nasal passages or nasal polyps, you may need to have surgery. Follow these instructions at home: Medicines ??? Take, use, or apply [id number] and prescription medicines only as told by your health care provider. These may include nasal sprays. ??? If you were prescribed an antibiotic medicine, take it as told by your health care provider. Donot stop taking the antibiotic even if you start to feel better. Hydrate and humidify ??? Drink enough fluid to keep your urine pale yellow. Staying hydrated will help to thin your mucus. ??? Use a cool mist humidifier to keep the humidity level in your home above 50%. ??? Inhale steam for 10???15 minutes, 3???4 times a day, or as told by your health care provider. You can do this in the bathroom while a hot shower is running. ??? Limit your exposure to cool or dry air. Rest ??? Rest as much as possible. ??? Sleep with your head raised (elevated). ??? Make sure you get enough sleep each night. General instructions ??? Apply a warm, moist washcloth to your face 3???4 times a day or as told by your health care provider. This will help with discomfort. ??? Wash your hands often with soap and water to reduce your exposure to germs. If soap and water are not available, use hand human resources support specialist. ??? Do not smoke. Avoid being around people who are smoking (secondhand smoke). ??? Keep all follow-up visits as told by your health care provider. This is important. Contact a health care provider if: ??? You have a fever. ??? Your symptoms get worse. ??? Your symptoms do not improve within 10 days. Get help right away if: ??? You have a severe headache. ??? You have persistent vomiting. ??? You have severe pain or swelling around your face or eyes. ??? You have vision problems. ??? You develop confusion. ??? Your neck is stiff. ??? You have trouble breathing. Summary ??? Sinusitis is soreness and inflammation of your sinuses. Sinuses are hollow spaces in the bones around your face. ??? This condition is caused by nasal tissues that become inflamed or swollen. The swelling traps or blocks the flow of mucus. This allows bacteria, viruses, and fungi to grow, which leads to infection. ??? If you were prescribed an antibiotic medicine, take it as told by your health care provider. Donot stop taking the antibiotic even if you start to feel better. ??? Keep all follow-up visits as told by your health care provider. This is important. This information is not intended to replace advice given to you by your health care provider. Make sure you discuss any questions you have with your health care provider. Document Revised: 08/31/2018 Document Reviewed: 08/31/2018 [employer] Patient Education ?? 2021 [employer]. Follow Up Care 05/10/2022 13:13:15 With:Diana Torres [employer] Address: [address] [place] [address] When:2 to 4 days Physician Emergency department Note * Heraclio Otto MD: PERFORM Event Display: ED Note Physician Authored Date: [id number] KEY TALAVERA :1965 Age:57 years Sex:Female Visit Date:05/10/2022 Primary Care Physician: Diana Torres [employer] Basic Information Time Seen: Heraclio Otto MD / 05/10/2022 13:15 Chief Complaint vomiting foam on friday, facial tenderness s/p cold for 3 weeks BP has been high for 7 days worsening daily despite increase in diuretic CO2 detector went off at home on friday increased home stressors History Of Present Illness: Ms. Talavera is a pleasant 57-year-old lady who presents today for evaluation??of facial pain with associated headache??as well as some overall feelings of malaise.?? She notes that she had a malfunction with her wood-burning fireplace about a week ago??and that the carbon monoxide detector did get off. ??Her was able to??air out the house and repair the stove,??they have not had issues withthe alarm going off again since this.?? She notes that she unfortunately has been dealing with??upper respiratory type symptoms for??the last 3 weeks and notes that she is having accelerating bilateral??sinus pressure, both above and below her eyes. ??She does have some radiation into her teeth. ??She has not had any cough, chest pain, shortness of breath. ??She??is concerned that her overall malaise could be related to carbon monoxide issue or to a cardiac etiology.?? She does note prior history of acute sinusitis that seems to have responded well to antibiotics in the past. Review of Systems: Positive for sinus pressure/pain??and otherwise as noted in the HPI Physical Exam Vitals & Measurements T:??36.4?C ??(Temporal Artery)?? HR:??64??(Peripheral)?? RR:??18?? BP:??173/94?? SpO2:??97%?? HT:??170.100??cm?? WT:??130.60??kg??(Estimated)?? Vital signs and nursing note reviewed ?? CONSTITUTIONAL: _well appearing in no acute distress SKIN: _Warm, dry, and intact without rash EYES: _extraocular movements are grossly intact, clear conjunctiva HENT: _Normocephalic, atraumatic, moist mucus membranes, serous effusions noted behind TMs bilaterally without signs of acute otitis media, does endorse significant tenderness with sinus palpation offrontal, ethmoid, maxillary sinuses. NECK: _no obvious swelling, normal range of motion PULMONARY: _normal chest rise and fall, lungs are clear bilaterally, no respiratory distress or stridor CARDIOVASCULAR: _regular rate,??regular rhythm, distal extremities are warm and well perfused GASTROINTESTINAL: _nondistended GENITOURINARY: _deferred NEUROLOGIC: _normal speech, moves all extremities MUSCULOSKELETAL: _no gross deformities, atraumatic PSYCHIATRIC: _normal mood and affect Medical Decision Making: This is a pleasant 57-year-old lady who presents today for evaluation of overall feelings of malaise with some??frontal head pressure. ??She is noted to be hypertensive on??presentation with blood pressures in the 170s which she indicates is abnormal for her and she has been working out with her PCP.?? Her HEENT exam does suggest potential acute sinusitis and we will plan to treat this with Augmentin as she??has noted she has needed antibiotics in the past, we will further advise aggressive??decongestion as she does have serous??effusions behind both TMs as well.?? She??inquires about checking for carbon monoxide poisoning, overall low suspicion for acute poisoning given the prior exposure?? was a week or so ago but with their heating difficulties we will check??VBG to ensure that she is not having any ongoing exposure.?? We will check labs to evaluate for potential endorgan damage with her??hypertension Procedure No Qualifying Data Reexamination/Reevaluation Labs reviewed???mild elevation in white blood cell count and hemoglobin is noted suggesting some degree of concentration. ??Renal function is preserved and electrolytes are generally reassuring. ??Troponin is normal. ??EKG is sinus.?? Discussed with medical laboratory technologist regarding??carboxyhemoglobin level, they indicate that this is 2%??and is not suggestive of ongoing exposure.?? We will againadvise aggressive decongestion and she may try Augmentin for the sinus pressure.?? We will have hercontinue to check blood pressure at home and follow- up??with her primary??once feeling better from a sinus??perspective to see if she needs further antihypertensive management. ??Reviewed return precautions to the emergency department ?? Medical Decision-Making: Clinical lab tests: ordered and reviewed -??Yes Tests in the medicine section of CPT??: ordered and reviewed -??Yes ?? Assessment/Plan 1.??Acute sinusitis??J01.90 Ordered: !-Augmentin 875 mg-125 mg oral tablet, 1 tab, Oral, every 12 hr, # 20 tab, 0 Refill(s), Pharmacy: [facility] #[id number], 170.1, cm, 05/10/22 13:25:00 EST, Height/Length Dosing, 130.6, kg, 05/10/22 13:25:00 EST, Weight Dosing Discharge Patient, 05/10/22 15:26:00 EST, Home Independently, Constant Indicator ?? Patient Education Sinusitis, Adult Follow Up With When Contact Information Diana Torres [employer] Within 2 to [address] [place] [phone] Additional Instructions: Medication Reconciliation New Prescription amoxicillin-clavulanate (!-Augmentin 875 mg-125 mg oral tablet)1 tab Oral (given by mouth) every 12hours for 10 Days. Refills: 0. ?? Changed levothyroxine (levothyroxine 112 mcg (0.112 mg) oral tablet)1 tab Oral (given by mouth) every day. 112 mcg. ?? Unchanged hydroCHLOROthiazide (hydroCHLOROthiazide 25 mg oral tablet)1 tab Oral (given by mouth) every day. ?? ibuprofen (ibuprofen 800 mg oral tablet)1 tab Oral (given by mouth) every 8 hours as needed other. as needed. ?? metoprolol (metoprolol tartrate 100 mg oral tablet)1 tab. ?? Other Prescription (Calcium 600 + D3 600 mg-10 mcg (400 unit) tablet)Oral (given by mouth). ?? Other Prescription (Misc Prescription) ?? spironolactone (spironolactone 50 mg oral tablet)1 tab Oral (given by mouth) every day. ?? tamsulosin (tamsulosin 0.4 mg oral capsule)1 Capsules Oral (given by mouth) every day. for 10 days. ?? tamsulosin (tamsulosin 0.4 mg oral capsule)1 Capsules Oral (given by mouth) every day as needed other (see comment) for 30 Days. Refills: 1. Problem List/Past Medical History Ongoing Acute vaginitis Arthralgia of the ankle and/or foot Female genital organ symptoms Gastroesophageal reflux disease Hyperlipidemia screening Hypothyroidism Idiopathic osteoarthritis Left nephrolithiasis Long-term current use of drug therapy Migraine Morbid obesity Nausea Pain of left shoulder joint Plantar fascial fibromatosis Seasonal allergic rhinitis Traumatic dislocation of knee joint Urinary incontinence Historical No qualifying data Procedure/Surgical History ???EGD/endoscopy (02/27/2012)???Knee arthroscopy/surgery (02/06/2012)???Total vaginal hysterectomy (04/11/2010)???Colonoscopy (04/14/2005)???Carpal tunnel release open (02/25/2005)???Laparoscopy (07/24/2004)???Oophorectomy (06/21/2004)???Cholecystectomy (04/08/2001)???Appendectomy (04/14/1984)???Par athyroidectomy???Tonsillectomy Allergies Compazine??(Confusion) LATEX??(Urticaria) benzoin topical??(Skin rash) ciprofloxacin codeine levoFLOXacin??(Skin rash) nitrofurantoin sulfa drugs tetracaine??(Skin rash) Social History Alcohol Never Electronic Cigarette/Vaping Electronic Cigarette Use: Never. 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 Living situation: Home/Independent. Substance Use Never Tobacco Never tobacco user Tobacco Use:. Family History Heart disease: Father. Hypertension: Mother and Father. Diagnostic Results ECG Sinus rhythm with a rate of 76, normal axis, VT is appropriate 103 ms, QRS is not widened at 87 ms,QTC is not prolonged at 400 ms.?? No acute appearing ST/T- segment changes or evidence of acute regional ischemia or dysrhythmia. Lab Results Blood Gases?? LATEST RESULTS?? pH Aron?? 05/10/22 14:07?? 7.41?? pCO2 Aron?? 05/10/22 14:07?? 47?? pO2 Aron?? 05/10/22 14:07?? 34?? HCO3 Venous?? 05/10/22 14:07?? 30?? O2 Sat Aron?? 05/10/22 14:07?? 68?? CO2 Total Venous?? 05/10/22 14:07?? 31?? Base Excess Venous?? 05/10/22 14:07?? 4.1? CBC and Differential?? LATEST RESULTS?? WBC?? 05/10/22 14:07?? 10.4 ??High?? RBC?? 05/10/22 14:07?? 5.9 ??High?? Hgb?? 05/10/22 14:07?? 17.7 ??High?? Hct?? 05/10/22 14:07?? 52.1 ??High?? MCV?? 05/10/22 14:07?? 88.5?? MCH?? 05/10/22 14:07?? 30.1?? MCHC?? 05/10/22 14:07?? 34.0?? RDW-CV?? 05/10/22 14:07?? 12.7?? MDW?? 05/10/22 14:07?? 2?? Platelets?? 05/10/22 14:07?? 238?? Neutro Auto?? 05/10/22 14:07?? 62.8?? Lymph Auto?? 05/10/22 14:07?? 27.3?? [place] Auto?? 05/10/22 14:07?? 8.7?? Eos, Auto?? 05/10/22 14:07?? 0.2 ??Low?? Basophil Auto?? 05/10/22 14:07?? 0.6?? Imm Gran Auto?? 05/10/22 14:07?? 0.4?? Neutro Absolute?? 05/10/22 14:07?? 6.6? Routine Chemistry?? LATEST RESULTS?? HISTORICAL RESULTS?? Sodium Level?? 05/10/22 14:07?? 140?? 01/07/22?? 141?? Potassium Level?? 05/10/22 14:07?? 3.7?? 01/07/22?? 4.4?? Chloride Level?? 05/10/22 14:07?? 100?? 01/07/22?? 105?? CO2?? 05/10/22 14:07?? 28?? 01/07/22?? 28?? Alk Phos?? 05/10/22 14:07?? 141? AST?? 05/10/22 14:07?? 36? ALT?? 05/10/22 14:07?? 53? BUN?? 05/10/22 14:07?? 18?? 01/07/22?? 12?? Glucose Level?? 05/10/22 14:07?? 95?? 01/07/22?? 91?? Creatinine Level?? 05/10/22 14:07?? 0.90?? 01/07/22?? 0.78?? eGFR AA?? 05/10/22 14:07?? 75?? 01/07/22?? 89?? eGFR Non-AA?? 05/10/22 14:07?? 75?? 01/07/22?? 89?? Calcium Level?? 05/10/22 14:07?? 10.2 ??High?? 01/07/22?? 9.3?? Protein Total?? 05/10/22 14:07?? 8.4 ??High? Albumin Level?? 05/10/22 14:07?? 4.2? Bilirubin Total?? 05/10/22 14:07?? 0.6? Cardiac Isoenzymes?? LATEST RESULTS?? Troponin-I?? 05/10/22 14:07?? 7.8? Infectious Disease?? LATEST RESULTS?? 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 05/10/22 14:07?? Unknown?? Symptomatic as defined by CDC??? 05/10/22 14:07?? Unknown?? Hospitalized due to COVID-19??? 05/10/22 14:07?? Unknown?? In ICU??? 05/10/22 14:07?? Unknown?? Group care resident??? 05/10/22 14:07?? Unknown?? status??? 05/10/22 14:07?? Unknown?? SARS-CoV-2(Covid19)PCR(GXpert COVFLURSV)?? 05/10/22 14:07?? Negative?? Flu A (GXpert COVFLURSV)?? 05/10/22 14:07?? Negative?? Flu B (GXpert COVFLURSV)?? 05/10/22 14:07?? Negative?? RSV (GXpert COVFLURSV)?? 05/10/22 14:07?? Negative? Electronically Signed on 05/10/22 07:20 PM Heraclio Otto MD Emergency department Discharge instructions * Heraclio Otto MD: PERFORM Event Display: ED Discharge Information Authored Date: [id number] KEY TALAVERA :1965 Age:57 years Sex:Female Visit Date:05/10/2022 Primary Care Physician: Diana Torres [employer] Discharge Instructions We would like to thank you for allowing us to assist you with your healthcare needs. The following includes patient education materials and information regarding your injury/illness. Diagnosis from Today's Visit Acute sinusitis Discharge Vitals Temperature??(Temporal Artery) 97.5 ??F (36.4 ??C) Heart Rate??(Peripheral) 64 Respiratory Rate?? 18 Blood Pressure?? 173/94?? Height?? 66.97 in (170.100 cm) Weight??(Estimated) 287.97 lb (130.60 kg) Allergies Compazine??(Confusion) LATEX??(Urticaria) benzoin topical??(Skin rash) ciprofloxacin codeine levoFLOXacin??(Skin rash) nitrofurantoin sulfa drugs tetracaine??(Skin rash) What to Do Next Instructions from Your Care Team Thank you for coming to the emergency department today, it has been a pleasure to take care of you.?? Thankfully your carbon monoxide level??was normal today.?? Your labs including your heart marker (troponin)??and EKG (electrical tracing of your heart)??did not show signs of a heart attack or damage to the heart.?? Your COVID/flu/RSV testing was negative.?? We have??prescribed you an antibiotic called amoxicillin???clavulanic acid or Augmentin to help treat for??potential sinus infection. ??Please take this for the full course even if you begin to feel better.?He may also use nasal salinerinses, nasal steroid such as either fluticasone or mometasone??in addition to??a mucolytic such as? ?Mucinex. ??Regarding the blood pressure, we do not see any signs of damage to your heart??or kidneys today but we certainly want this number to be lower??in the long run. ??Please follow-up with your primary provider??to discuss if they want to make any further changes to your medications.?? Please return to the emergency department if you have any new or concerning symptoms including any??new chest pain, trouble breathing, new or worsening headache,??new abdominal pain, or if you have any other symptoms that concern you. You Need to Schedule the Following Appointments Follow Up with??Diana Torres NP When:??Within 2 to 4 days Where: [address] [place] [id number]- Upcoming Scheduled Appointments Friday 9:00 AM EDT ?? You were treated today on an emergency basis; it may be gasca to contact your primary care provider to notify them of your visit today. You may have been referred to your regular doctor or a specialist, please follow up as instructed. If your condition worsens or you can't get in to see the doctor, contact the Emergency Department. Medications What How Much When Why Instructions Next Dose New amoxicillin-clavulanate (!- Augmentin 875 mg-125 mg oral tablet) 1 tab Oral (given by mouth) Every 12 hours Acute sinusitis Duration: 10 Days Pickup at [facility] Changed levothyroxine (levothyroxine 112 mcg (0.112 mg) oral tablet) 1 tab Oral (given by mouth) Every day 112 mcg ?? Unchanged hydroCHLOROthiazide (hydroCHLOROthiazide 25 mg oral tablet) 1 tab Oral (given by mouth) Every day Unchanged ibuprofen (ibuprofen 800 mg oral tablet) 1 tab Oral (given by mouth) Every 8 hours as needed for other as needed ?? Unchanged metoprolol (metoprolol tartrate 100 mg oral tablet) 1 tab Unchanged Other Prescription (Calcium 600 + D3 600 mg-10 mcg (400 unit) tablet) Oral (given by mouth) Unchanged Other Prescription (Misc Prescription) Unchanged spironolactone (spironolactone 50 mg oral tablet) 1 tab Oral (given by mouth) Every day Unchanged tamsulosin (tamsulosin 0.4 mg oral capsule) 1 Capsules Oral (given by mouth) Every day for 10 days ?? Unchanged tamsulosin (tamsulosin 0.4 mg oral capsule) 1 Capsules Oral (given by mouth) Every day as needed for other (see comment) kidney stone Duration: 30 Days Pharmacy Information [facility]: [address] [place], [place] [id number] [phone] Education Materials Sinusitis, Adult Sinusitis is inflammation of your sinuses. Sinuses are hollow spaces in the bones around your face.Your sinuses are located: ? Around your eyes. ? In the middle of your forehead. ? Behind your nose. ? In your cheekbones. Mucus normally drains out of your sinuses. When your nasal tissues become inflamed or swollen, mucus can become trapped or blocked. This allows bacteria, viruses, and fungi to grow, which leads to infection. Most infections of the sinuses are caused by a virus. Sinusitis can develop quickly. It can last for up to 4 weeks (acute) or for more than 12 weeks (chronic). Sinusitis often develops after a cold. What are the causes? This condition is caused by anything that creates swelling in the sinuses or stops mucus from draining. This includes: ? Allergies. ? Asthma. ? Infection from bacteria or viruses. ? Deformities or blockages in your nose or sinuses. ? Abnormal growths in the nose (nasal polyps). ? Pollutants, such as chemicals or irritants in the air. ? Infection from fungi (rare). What increases the risk? You are more likely to develop this condition if you: ? Have a weak body defense system (immune system). ? Do a lot of swimming or diving. ? Overuse nasal sprays. ? Smoke. What are the signs or symptoms? The main symptoms of this condition are pain and a feeling of pressure around the affected sinuses.Other symptoms include: ? Stuffy nose or congestion. ? Thick drainage from your nose. ? Swelling and warmth over the affected sinuses. ? Headache. ? Upper toothache. ? A cough that may get worse at night. ? Extra mucus that collects in the throat or the back of the nose (postnasal drip). ? Decreased sense of smell and taste. ? Fatigue. ? A fever. ? Sore throat. ? Bad breath. How is this diagnosed? This condition is diagnosed based on: ? Your symptoms. ? Your medical history. ? A physical exam. ? Tests to find out if your condition is acute or chronic. This may include: ? Checking your nose for nasal polyps. ? Viewing your sinuses using a device that has a light (endoscope). ? Testing for allergies or bacteria. ? Imaging tests, such as an MRI or CT scan. In rare cases, a bone biopsy may be done to rule out more serious types of fungal sinus disease. How is this treated? Treatment for sinusitis depends on the cause and whether your condition is chronic or acute. ? If caused by a virus, your symptoms should go away on their own within 10 days. You may be given medicines to relieve symptoms. They include: ? Medicines that shrink swollen nasal passages (topical intranasal decongestants). ? Medicines that treat allergies (antihistamines). ? A spray that eases inflammation of the nostrils (topical intranasal corticosteroids). ? Rinses that help get rid of thick mucus in your nose (nasal saline washes). ? If caused by bacteria, your health care provider may recommend waiting to see if your symptoms improve. Most bacterial infections will get better without antibiotic medicine. You may be given antibiotics if you have: ? A severe infection. ? A weak immune system. ? If caused by narrow nasal passages or nasal polyps, you may need to have surgery. Follow these instructions at home: Medicines ? Take, use, or apply detm-xyu-qmscyes and prescription medicines only as told by your health care provider. These may include nasal sprays. ? If you were prescribed an antibiotic medicine, take it as told by your health care provider. Do notstop taking the antibiotic even if you start to feel better. Hydrate and humidify ? Drink enough fluid to keep your urine pale yellow. Staying hydrated will help to thin your mucus. ? Use a cool mist humidifier to keep the humidity level in your home above 50%. ? Inhale steam for 10???15 minutes, 3???4 times a day, or as told by your health care provider. You can do this in the bathroom while a hot shower is running. ? Limit your exposure to cool or dry air. Rest ? Rest as much as possible. ? Sleep with your head raised (elevated). ? Make sure you get enough sleep each night. General instructions ? Apply a warm, moist washcloth to your face 3???4 times a day or as told by your health care provider. This will help with discomfort. ? Wash your hands often with soap and water to reduce your exposure to germs. If soap and water are not available, use hand human resources support specialist. ? Do not smoke. Avoid being around people who are smoking (secondhand smoke). ? Keep all follow-up visits as told by your health care provider. This is important. Contact a health care provider if: ? You have a fever. ? Your symptoms get worse. ? Your symptoms do not improve within 10 days. Get help right away if: ? You have a severe headache. ? You have persistent vomiting. ? You have severe pain or swelling around your face or eyes. ? You have vision problems. ? You develop confusion. ? Your neck is stiff. ? You have trouble breathing. Summary ? Sinusitis is soreness and inflammation of your sinuses. Sinuses are hollow spaces in the bones around your face. ? This condition is caused by nasal tissues that become inflamed or swollen. The swelling traps or blocks the flow of mucus. This allows bacteria, viruses, and fungi to grow, which leads to infection. ? If you were prescribed an antibiotic medicine, take it as told by your health care provider. Do notstop taking the antibiotic even if you start to feel better. ? Keep all follow-up visits as told by your health care provider. This is important. This information is not intended to replace advice given to you by your health care provider. Make sure you discuss any questions you have with your health care provider. Document Revised: 08/31/2018 Document Reviewed: 08/31/2018 Elsevier Patient Education ?? 2021 [employer] Tests Performed Lab Test Name Test Result Date/Time pH Aron 7.41 pH unit(s) 05/10/2022 14:07 EST pCO2 Aron 47 mmHg 05/10/2022 14:07 EST pO2 Aron 34 mmHg 05/10/2022 14:07 EST HCO3 Venous 30 mmol/L 05/10/2022 14:07 EST O2 Sat Aron 68 % 05/10/2022 14:07 EST CO2 Total Venous 31 mmol/L 05/10/2022 14:07 EST Base Excess Venous 4.1 mmol/L 05/10/2022 14:07 EST WBC 10.4 x10^3/mcL 05/10/2022 14:07 EST RBC 5.9 x10^6/mcL 05/10/2022 14:07 EST Hgb 17.7 g/dL 05/10/2022 14:07 EST Hct 52.1 % 05/10/2022 14:07 EST MCV 88.5 05/10/2022 14:07 EST MCH 30.1 pg 05/10/2022 14:07 EST MCHC 34.0 g/dL 05/10/2022 14:07 EST RDW-CV 12.7 % 05/10/2022 14:07 EST MDW 2 05/10/2022 14:07 EST Platelets 238 x10^3/mcL 05/10/2022 14:07 EST Neutro Auto 62.8 % 05/10/2022 14:07 EST Lymph Auto 27.3 % 05/10/2022 14:07 EST [place] Auto 8.7 % 05/10/2022 14:07 EST Eos, Auto 0.2 % 05/10/2022 14:07 EST Basophil Auto 0.6 % 05/10/2022 14:07 EST Imm Gran Auto 0.4 % 05/10/2022 14:07 EST Neutro Absolute 6.6 x10^3/mcL 05/10/2022 14:07 EST Sodium Level 140 mmol/L 05/10/2022 14:07 EST Potassium Level 3.7 mmol/L 05/10/2022 14:07 EST Chloride Level 100 mmol/L 05/10/2022 14:07 EST CO2 28 mmol/L 05/10/2022 14:07 EST Alk Phos 141 unit/L 05/10/2022 14:07 EST AST 36 unit/L 05/10/2022 14:07 EST ALT 53 unit/L 05/10/2022 14:07 EST BUN 18 mg/dL 05/10/2022 14:07 EST Glucose Level 95 mg/dL 05/10/2022 14:07 EST Creatinine Level 0.90 mg/dL 05/10/2022 14:07 EST eGFR AA 75 05/10/2022 14:07 EST eGFR Non-AA 75 05/10/2022 14:07 EST Calcium Level 10.2 mg/dL 05/10/2022 14:07 EST Protein Total 8.4 g/dL 05/10/2022 14:07 EST Albumin Level 4.2 g/dL 05/10/2022 14:07 EST Bilirubin Total 0.6 mg/dL 05/10/2022 14:07 EST Troponin-I 7.8 pg/mL 05/10/2022 14:07 EST Employed in healthcare? Unknown 05/10/2022 14:07 EST Symptomatic as defined by CDC? Unknown 05/10/2022 14:07 EST Hospitalized due to COVID-19? Unknown 05/10/2022 14:07 EST In ICU? Unknown 05/10/2022 14:07 EST Group care resident? Unknown 05/10/2022 14:07 EST status? Unknown 05/10/2022 14:07 EST SARS-CoV-2(Covid19)PCR(GXpert COVFLURSV) NEGATIVE 05/10/2022 14:07 EST Flu A (GXpert COVFLURSV) NEGATIVE 05/10/2022 14:07 EST Flu B (GXpert COVFLURSV) Neg-GeneXPert 05/10/2022 14:07 EST RSV (GXpert COVFLURSV) Neg-GeneXPert 05/10/2022 14:07 EST Patient/Edger Automatic Signature Patient Name:KEY TALAVERA I have received this information and my questions have been answered. Patient/Edger Automatic Name: Patient/Edger Automatic Signature: Relationship to Patient: Witness Name/Signature: Date: Electronically Signed on: 05/10/2022 15:48 ESTSigned by:[facility] Emergency department Note * Rosibel Wang M: PERFORM Event Display: ED Notes Authored Date: [id number] Patient Care team information Personnel Name: Diana Torres NP Address: Address: [address] [place] [address]
--- OUTSIDE RECORDS SUMMARY | 2024-01-06 11:51 | XMS_ITS | Clinical Summary ---
Author Organization [facility] Address [address] [facility] [place] [address] Care Team Providers Care Security Orderly Name Role Phone Melissa Diana Cantu APRN Primary Care Provider [phone] Allergies Active Allergy Reactions Criticality Noted Date Comments Benzoin CIS - Localized Reaction Ciprofloxacin (Mixture) CIS - Rash Codeine Phosphate CIS - headache, nausea Gloves, Latex CIS - Localized Reaction Hydrocodone-Acetaminophen CIS - headache, nausea Iodine And Iodide Containing Products High CIS - Anaphylaxis Latex CIS - Localized Reaction Latex Dams CIS - Localized Reaction Lisinopril 03/06/2021 Rash, swollen lips and palpitations Shellfish Derived CIS - swelling Sulfa (Sulfonamide Antibiotics) CIS - rash, headache & sees spots Medications Medication Sig Dispensed Refills Start Date End Date Status spironolactone (ALDACTONE) 50 mg Tablet TAKE ONE TABLET BY MOUTH EVERY MORNING 02/06/2021 Active pantoprazole EC (Protonix) 20 mg Tablet, Delayed Release (E.C.) TAKE ONE TABLET BY MOUTH EVERY DAY NEEDED 02/22/2021 Active metoprolol succinate XL (Toprol-XL) 100 mg Tablet Sustained Release 24 hr TAKE ONE TABLET BY MOUTH EVERY DAY 01/03/2021 Active LORazepam (Ativan) 0.5 mg Tablet TAKE ONE TABLET BY MOUTH TWICE A DAY NEEDED 02/01/2021 Active levothyroxine (Synthroid) 112 mcg Tablet TAKE ONE TABLET BY MOUTH EVERY DAY 02/20/2021 Active cholecalciferol, Vitamin D3, (cholecalciferol, Vitamin D3,) 50 mcg (2,000 unit) Capsule Take 2,000 Units by mouth daily. Active docusate sodium (Colace) 100 mg Capsule Take 100 mg by mouth daily. Active UNKNOWN TO PATIENTIndications:e lderberry for immune support Take 50 mg by mouth daily. Indications: elderberry for immune support Active acetaminophen (Tylenol) 500 mg Tablet Take 1,000 mg by mouth every 6 hours as needed for Pain. Active Active Problems Problem Noted Date Diagnosed Date Essential hypertension 03/06/2021 Gastroesophageal reflux 03/06/2021 Hypothyroidism 11/05/2011 Overview (03/06/2021): ICD10 Update Auto Replacement Status post hysterectomy 11/04/2009 Social History Tobacco Use Types Packs/Day Years Used Date Smoking Tobacco: Never Smokeless Tobacco: Never Sex and Gender Information Value Date Recorded Sex Assigned at Not on file Gender Identity Not on file Sexual Orientation Not on file Last Filed Vital Signs Vital Sign Reading Time Taken Comments Blood Pressure 135/80 06/05/2021 2:00 PM EST Pulse 64 06/05/2021 2:00 PM EST Temperature 36.1 ??C (97 ??F) 06/05/2021 12: 50 PM EST Respiratory Rate 14 06/05/2021 2:00 PM EST Oxygen Saturation 93% 06/05/2021 2:00 PM EST Inhaled Oxygen Concentration - - Weight 134.4 kg (296 lb 3.2 oz) 022 10:46 AM EDT Height 167.6 cm (5' 6) 04/26/2021 1:36 PM EST Body Mass Index 47.81 04/26/2021 1:36 PM EST Plan of Treatment Health Maintenance Due Date Last Done Comments CT Colonography 1965 Colonoscopy 1965 Colorectal Cancer Screening 1965 FIT DNA 1965 FIT 1965 Sigmoidoscopy (10 year) with FIT yearly 1965 Sigmoidoscopy 1965 HIV screen 1983 Hepatitis C Screening 1983 Lipid Screening 1983 Hepatitis B vaccine (0-59 yrs) (1) 01/23/1984 Tetanus/Diphtheria/Pertussis Vaccines (1 - Tdap) 01/23/1984 HPV test 1995 PAP Smear 1995 Breast Cancer Share Decision Needed 2005 Breast Cancer screening 2005 Diabetes Screening (HgbA1C or Glucose) 2005 Zoster vaccine (1 of 2) 2015 Advance Directive 01/23/2020 Covid-19 Vaccine ( season) 2023, 06/29/2020 Influenza (Flu) vaccine (1 o f 1 - Influenza standard series) 12/14/2023 Care Teams Security Orderly Relationship Specialty Start Date End Date Diana Torres APRN [address] [place] [address] PCP - General Family Medicine 02/21/21
--- OUTSIDE RECORDS SUMMARY | 2024-01-06 11:51 | XMS_ITS | Encounter Summary ---
Author Organization [facility] Address [address] [place] [address] Care Team Providers Care Senior Education Specialist Name Role Phone Mariusz Arroyo MD Primary Care Provider [phone] Encounter Details Date Type Department Care Team (Late st Contact Info) Description 08/29/2021 Lab Requisition [facility] Pathology & Laboratory Medicine - [address] [address] Outr Resulting Lab, Provider Social History Tobacco [...] Procedure Name Priority Date/Time Associated Diagnosis Comments PTH INTACT Routine 08/29/2021 12:48 EDT documented in this encounter Results * PTH INTACT (08/29/2021 12:48 EDT) Intact PTH 23 19 - 88 pg/mL 08/30/2021 10:09 EDT [facility] Blood VENOUS BLOOD / Unknown 08/29/2021 12:48 EDT 08/29/2021 20:50 EDT Provider Outr Resulting Lab CHEMISTRY & BLOOD GAS ORDERABLES [facility] [address] [place] [address] documented in this encounter Visit Diagnoses Not on filedocumented in this encounter Care Teams Senior Education Specialist Relationship Specialty Start Date End Date Mariusz Arroyo MD [address] [place] [address] PCP - General 06/27/09 documented as of this encounter
--- OUTSIDE RECORDS SUMMARY | 2024-01-06 11:51 | XMS_ITS | Encounter Summary ---
Author Organization [facility] Address [address] [place] [address] Care Team Providers Care Business Reporting Developer Name Role Phone Mariusz Arroyo MD Primary Care Provider [phone] Encounter Details Date Type Department Care Team (Late st Contact Info) Description 01/31/2010 Results Only [facility] Laboratory Services - [facility] [address] [place] [address] Heraclio Brooks MD Social History Tobacco Use [...] Priority Date/Time Associated Diagnosis Comments CYTOPATHOLOGY Routine 01/31/2010 0:00 EDT documented in this encounter Results * CYTOPATHOLOGY (01/31/2010 0:00 EDT) Pathology Report: CYTOPATHOLOGY REPORT ? Reports generated via electronic interface contain original data; ? however they are lacking the format of the original report. ? Caution should be taken when reading/interpreti ng unformatted reports. ? Name: ? PAVITHRA TALAVERA ? Accession #: ? [id number] ? : ? 1965 (Age: 45) ??F ?Collect Date: ? 01/31/2010 ? Location: ? [facility] ? Receive Date: ? 02/01/2010 ? Provider: HERACLIO BROOKS MD ? Copy to: ? Final Report ? SPECIMEN ADEQUACY ? Satisfactory for Evaluation ? - transformation zone component present ? GENERAL CATEGORIZATION ? Negative for Intraepithelial Lesion or Malignancy ? Specimen/Source: ??Pap Test, Cervix/Endocervix, ThinPrep Imaging System with ? manual evaluation ? Document reviewed and electronically signed by: ? Mariusz Hugo, CT(ASCP) ? Report ??Date: 02/05/2010 14:59 ? HPV with Pap Test ? Date Ordered: ? 02/05/2010 ? Status: ?? Signed Out ?Date Complete: ? 02/08/2010 ? By: ??System Interface ? Date Reported: ? 02/08/2010 ? Interpretation ? RESULT: Negative for HPV types 16, 18, 31, 33, 35, 39, 45, 51, 52, ? 56, 58, 59, and 68. ? Comments ? Document reviewed and electronically signed by: ? System Interface ? Report date: 02/08/2010 ? By the signature above, the attending physician certifies that he/she has ? personally conducted a gross and/or microscopic examination of the described ? specimens and rendered or confirmed the above diagnosis. ? End of Report ? [facility] 01/31/2010 02/01/2010 Heraclio Brooks MD PATHOLOGY ORDERABLES [facility] [address] [place] [address] documented in this encounter Visit Diagnoses Not on filedocumented in this encounter Care Teams Business Reporting Developer Relationship Specialty Start Date End Date Mariusz Arroyo MD [address] [place] [address] PCP - General 06/27/09 documented as of this encounter
--- OUTSIDE RECORDS SUMMARY | 2024-01-06 11:51 | XMS_ITS | Encounter Summary ---
Author Organization [facility] [address] Care Team Providers Care Precision Agriculture Specialist Name Role Phone JoelDiana king Alondra BENTLEY Primary Care Provider [phone] Reason for Visit * Reason Comments Follow-up Encounter Details Date Type Department Care Team (Latest Contact Info) Description 07/13/2021 11:00 AM EDT Office [place] [address] Breanna Rivers APRN [facility] [place] [address] S/P parathyroidectomy Social History Tobacco Use Types Packs/Day Years Used Date Smoking Tobacco: Never Smokeless Tobacco: Never Sex and Gender Information Value Date Recorded Sex Assigned at Not on file Gender Identity Not on file Sexual Orientation Not on file documented as of this encounter Last Filed Vital Signs Vital Sign Reading Time Taken Comments Blood Pressure - - Pulse - - Temperature - - Respiratory Rate - - Oxygen Saturation - - Inhaled Oxygen Concentration - - Weight 134.4 kg (296 lb 3.2 oz) 022 10:46 AM EDT Height - - Body Mass Index 47.81 04/26/2021 1:36 PM EST documented in this encounter Progress Notes * Breanna Rivers APRN - 07/13/2021 11:00 AM EDT Parathyroidectomy Post-Op Visit Subjective: Ms. Pavithra Talavera is a very pleasant 56 y.o. year old female who is 6 weeks s/p right lower parathyroidectomy for primary hyperparathyroidism. She is doing very well without complaints. She is not having hypocalcemic symptoms or issues with pain or difficulty swallowing. She feels her fatigue haslifted and she is generally feeling much better. Exam: No data found. Healing anterior neck incision with underlying healing ridge. No hematoma or seroma. Voice appears normal. Pathology results: Right lower parathyroid, excision: ??- Enlarged, hypercellular parathyroid (0.54 g) ??- Focal atrophic thymic tissue. Labs: Calcium- 9.6 Pth- 20 TSH- 3.49 Assessment and Plan: Ms. Pavithra Talavera is a very pleasant 56 y.o. year old female s/p targeted parathyroidectomy for primary hyperparathyroidism who is doing very well post- operatively without evidence of complications. I discussed the pathology results with the patient and recommended no further treatment. Calcium was checked today and was normal. She does not need to continue taking post-operative supplemental doses of calcium and vitamin D. I did encourage her to discuss calcium supplementation for general bone health purposes with her PCP. I explained that she should have her serum calcium checkedannually, and that we do not need to follow PTH levels unless her calcium level rises again. I discussed scar massage with vitamin E to aid in incisional appearance and discussed the importance of UV light protection on scar healing. Overall, she is doing very well post-operatively and I recommended follow up with me on an as needed basis hereafter. Breanna Rivers APRN documented in this encounter Plan of Treatment Not on file documented as of this encounter Visit Diagnoses Diagnosis S/P parathyroidectomy Other postprocedural status documented in this encounter Care Teams Precision Agriculture Specialist Relationship Specialty Start Date End Date Diana Torres APRN [address] [place] [address] PCP - General Family Medicine 02/21/21 documented as of this encounter
--- OUTSIDE RECORDS SUMMARY | 2024-01-06 11:51 | XMS_ITS | Encounter Summary ---
[place] [address] Care Team Providers Care Spoilage Worker Name Role Phone Diana Torres APRN Primary Care Provider [phone]- [phone] Reason for Visit * Reason Onset Date Comments Post-op Problem 06/11/2021 Encounter Details Date Type Department Care Team (Late st Contact Info) Description 06/11/2021 [place] [id number] Cristy Larkin MD [facility] [place] [address] Post-op Problem Social History Tobacco Use Types Packs/Day Years Used Date Smoking Tobacco: Never Smokeless Tobacco: Never Sex and Gender Information Value Date Recorded Sex Assigned at Not on file Gender Identity Not on file Sexual Orientation Not on file documented as of this encounter Progress Notes * Cristy Larkin MD - 06/11/2021 11:59 AM EST Postop Follow-Up 06/11/21 Ms. Talavera is a 56yo F who underwent parathyroidectomy on 06/05/21, who notes that since surgery, shehas had constant pain and tingling sensation along the right side of her from the lips, along the gum line (she is edentulous), extending to the back of her mouth, with what appears to be a large canker sore at the back. Anes record reviewed: Video Gr. 1 view, but noted that it was difficult ???to get an acute angle with the stylette provided?? , 2 attempts. Ms. Talavera has been taking care to not irritate the area further, tried applying oragel, but unable to reach the very back of the mouth. I discussed that the location is suggestive of irritation from ETT, and explained that while it wasstraighforward to obtain a good view of the vocal cords with the video laryngoscopy, 2 attempts were required to angle the ETT with the NIM stylette to the glottic opening. She is satisfied with the explanation. I discussed that it would heal with time and to continue with topical care as she has been doing and avoid further irritation. If there is no improvement in a week, I encouraged Ms. Talavera to get it evaluated by PCP or dentist. Cristy Larkin MD documented in this encounter Plan of Treatment Not on file documented as of this encounter Visit Diagnoses Not on filedocumented in this encounter Care Teams Spoilage Worker Relationship Specialty Start Date End Date Diana Torres APRN [address] [place] [id number] PCP - General Family Medicine 02/21/21 documented as of this encounter
--- OUTSIDE RECORDS SUMMARY | 2024-01-06 11:51 | XMS_ITS | Encounter Summary ---
[place] [address] Care Team Providers Care Mud Analysis Supervisor Name Role Phone Diana Torres APRN Primary Care Provider [phone]- [phone] Encounter Details Date Type Department Care Team (Late st Contact Info) Description 01/16/2022 External Results [place] [id number] Social History Tobacco Use Types Packs/Day Years Used Date Smoking Tobacco: Never Smokeless Tobacco: Never Sex and Gender Information Value Date Recorded Sex Assigned at Not on file Gender Identity Not on file Sexual Orientation Not on file documented as of this encounter Plan of Treatment Not on file documented as of this encounter Procedures Procedure Name Priority Date/Time Associated Diagnosis Comments LAB SCAN Routine 01/07/2022 documented in this encounter Results * Scan Doc: Lab (01/07/2022) Historical Provider MD ESQUEDA MGR SCAN EX T ORDR/RSLT documented in this encounter Visit Diagnoses Not on filedocumented in this encounter Care Teams Mud Analysis Supervisor Relationship Specialty Start Date End Date Diana Torres APRN [address] [place] [id number] PCP - General Family Medicine 02/21/21 documented as of this encounter
--- OUTSIDE RECORDS SUMMARY | 2024-01-06 11:51 | XMS_ITS | Encounter Summary ---
Author Organization [facility] Address [address] [place] [address] Care Team Providers Care Die Cut Operator Name Role Phone Unavailable Primary Care Provider Unavailabl e Encounter Details Date Type Department Care Team (Latest Contact Info) Description 07/07/2001 10:44 EST - 07/07/2001 11:59 EST Hospital Encounter [facility] [address] [place] [address] Heraclio Elizabeth MD Discharge Disposition: Auto Discharge Social History Tobacco Use Types Packs/Day Years Used Date Smoking Tobacco: Never Assessed Sex and Gender Information Value Date Recorded Sex Assigned at Not on file Gender Identity Not on file Sexual Orientation Not on file documented as of this encounter Discharge Disposition Disposition Code Departure Means Destination Auto Discharge documented in this encounter Plan of Treatment Not on file documented as of this encounter Procedures Procedure Name Priority Date/Time Associated Diagnosis Comments RAD US GUIDANCE AMNIOCENTESIS Routine 07/07/2001 14:00 EST documented in this encounter Results * RAD US GUIDANCE AMNIOCENTESIS (07/07/2001 14:00 EST) Anatomical Region Laterality Modality Other 07/07/2001 14:0 0 EST Narrative 01/25/2009 1:03 EDT OSCAR U/S, AMA, DRUG EXPOSURE A vera intrauterine gestation was identified in vertex presentation, with a posterior placental implantation. LMP: 03/05/01 PIERRE: WNL ANATOMY SURVEY: No anomalies observed - head, face, thorax, spine, upper extremities, lower extremities, abdominal wall, abdominal cavity, stomach fluid, bladder fluid, right kidney, left kidney. MATERNAL ANATOMY SURVEY: No anomalies observed - uterus. Poorly seen - right ovary, left ovary. FACIAL ANATOMY SURVEY: No anomalies observed - orbits, nostrils, lips, mandible. Poorly seen - palate. CRANIAL ANATOMY SURVEY: No anomalies observed - midline, lateral ventricles, choroid plexus, thalami, cerebellum. BIOMETRIC PARAMETERS: BPD 4.3 cm = 19.0 wks; HC 16.2 cm = 19.0 wks; FL 3.0 cm = 19.4 wks; AC 13.3 cm = 18.8 wks. Estimated gestational age by ultrasound = 19.0 wks. EFW = 269 grams. ADDITIONAL BIOMETRY: FL/HC = 0.19; CM = 0.6 cm; VA = 0.6 cm; NUC = 0.4 cm; CEREBELLUM = 2.0 cm; GA = 20.2 wks; ULN = 2.6 cm; TIB = 2.4 cm; GA = 18.5 wks; HUM = 2.7 cm; GA = 18.6 wks. COMMENTS: Good movement present. biometry slightly larger than menstrual dating, but a first trimester scan was consistent with menstrual dating. No anomalies identified, including the major and minor markers associated with Trisomy 21. 07/09/01/sb Procedure Note Brady Lombardo MD - 01/25/2009 OSCAR U/S, AMA, DRUG EXPOSURE A vera intrauterine gestation was identified in vertex presentation, with a posterior placental implantation. LMP: 03/05/01 PIERRE: WNL ANATOMY SURVEY: No anomalies observed - head, face, thorax, spine, upper extremities, lower extremities, abdominal wall, abdominal cavity, stomach fluid, bladder fluid, right kidney, left kidney. MATERNAL ANATOMY SURVEY: No anomalies observed - uterus. Poorly seen - right ovary, left ovary. FACIAL ANATOMY SURVEY: No anomalies observed - orbits, nostrils, lips, mandible. Poorly seen - palate. CRANIAL ANATOMY SURVEY: No anomalies observed - midline, lateral ventricles, choroid plexus, thalami, cerebellum. BIOMETRIC PARAMETERS: BPD 4.3 cm = 19.0 wks; HC 16.2 cm = 19.0 wks; FL 3.0 cm = 19.4 wks; AC 13.3 cm = 18.8 wks. Estimated gestational age by ultrasound = 19.0 wks. EFW = 269 grams. ADDITIONAL BIOMETRY: FL/HC = 0.19; CM = 0.6 cm; VA = 0.6 cm; NUC = 0.4 cm; CEREBELLUM = 2.0 cm; GA = 20.2 wks; ULN = 2.6 cm; TIB = 2.4 cm; GA = 18.5 wks; HUM = 2.7 cm; GA = 18.6 wks. COMMENTS: Good movement present. biometry slightly larger than menstrual dating, but a first trimester scan was consistent with menstrual dating. No anomalies identified, including the major and minor markers associated with Trisomy 21. 07/09/01/sb Heraclio Elizabeth MD IMG US ORDERABLES documented in this encounter Visit Diagnoses Not on filedocumented in this encounter
--- OUTSIDE RECORDS SUMMARY | 2024-01-06 11:51 | XMS_ITS | Encounter Summary ---
Author Organization [facility] Address [address] [place] [address] Care Team Providers Care Clerical Office Worker Name Role Phone Mariusz Arroyo MD Primary Care Provider [phone] Reason for Visit * Reason Onset Date Comments Follow-up 12/20/2011 Results 12/20/2011 Encounter Details Date Type Department Care Team (Late st Contact Info) Description 12/20/2011 Telephone [facility] Endocrinology - [facility] [address] [place], [place] [id number] Laurel Pathak MD Follow-up; Results Social History Tobacco Use Types Packs/Day Years Used Date Smoking Tobacco: Never Smokeless Tobacco: Never Alcohol Use Standard Drinks/Week Comments No 0 (1 standard drink = 0.6 oz pur e alcohol) Sex and Gender Information Value Date Recorded Sex Assigned at Not on file Gender Identity Not on file Sexual Orientation Not on file documented as of this encounter Ordered Prescriptions Prescription Sig Dispensed Refills Start Date End Da te bisoprolol (ZEBETA) 5 mg tabletIndications:Essential hypertension, benign Take 1 Tab by mouth daily. 90 Tab 11 12/20/2011 documented in this encounter Miscellaneous Notes * Telephone Encounter - Laurel Pathak MD - 12/20/2011 1102 EDT Called the patient and discussed the results in detail Repeat calcium in 5 weeks = 10.2 , PTH 46 , Vitamin D 49 after 50,000 MWF supplementation for 4 weeks, 24 hour urine calcium 292 mg/24 hrs. Still off of HCTZ Increased Bisoprolol to 5 mg daily, refills given Plan after discussing with Dr. Albert: - No more vitamin D supplementation - Repeat labs in 6 months prior to follow up - Parathyroid scan would be inconclusive at this point, will do at 6 months visit, if indicated. - patient agrees. * Telephone Encounter - Ethel James - 12/20/2011 0936 EDT Patient is requesting a call back. Per patient, she would like to know the results of her recent tests and as well as what she should be currently doing. documented in this encounter Plan of Treatment Not on file documented as of this encounter Visit Diagnoses Diagnosis Essential hypertension, benign Hypercalcemia documented in this encounter Discontinued Medications Medication Sig Discontinue Reason Start Date End Da te bisoprolol (ZEBETA) 5 mg tabletIndications:Dillanenti al hypertension, benign Take 0.5 Tabs by mouth daily. Dose adjustment 11/05/2011 12/20/2011 documented as of this encounter Care Teams Clerical Office Worker Relationship Specialty Start Date End Date Mariusz Arroyo MD [address] [place] [address] PCP - General 06/27/09 documented as of this encounter
--- OUTSIDE RECORDS SUMMARY | 2024-01-06 11:51 | XMS_ITS | Encounter Summary ---
[place] [address] Care Team Providers Care Operator Automated Process Name Role Phone Diana Torres APRN Primary Care Provider [phone]- [phone] Reason for Referral * Consultation (Routine) - Closed Specialty Diagnoses / Procedures Referred By Gisela t Referred To Contact General Surgery Diagnoses Primary hyperparathyroidism Chelsea Lynn MD [facility] [place] [address] Makenzie Salazar MD [facility] [place] [address] Referral ID Status Reason Start Date Expiration Date V isits Requested Visits Authorized [id number] Closed Consult, Test & Treat 03/08/2021 03/08/2022 1 1 Reason for Visit * Consultation (Routine) - Closed Specialty Diagnoses / Procedures Referred By Contac t Referred To Contact Endocrinology Diagnoses Hyperparathyroidism, unspecified Hypercalcemia Diana Torres APRN [address] [place] [address] [facility] Endocrinology [address] [place] [phone] Referral ID Status Reason Start Date Expiration Date V isits Requested Visits Authorized [id number] Closed Consult, Test & Treat [facility] PCP Updated and/or Approved 02/12/2021 08/12/2021 6 6 Encounter Details Date Type Department Care Team (Latest Contact Info) Description 03/06/2021 1:00 PM EST TH Visit (TeleHealth) [place] [address] Chelsea Lynn MD [facility] [place] [address] Primary hyperparathyroidism (Primary Dx) Social History Tobacco Use Types Packs/Day Years Used Date Smoking Tobacco: Never Assessed Sex and Gender Information Value Date Recorded Sex Assigned at Not on file Gender Identity Not on file Sexual Orientation Not on file documented as of this encounter Progress Notes * Chelsea Lynn - 03/06/2021 1:00 PM EST Endocrinology Outpatient Visit Date of Visit:03/06/2021 Patient Name: Pavithra Talavera : 1965 Reason for Consult: Pavithra Talavera is being seen in endocrine clinic today at the request of Dr. Diana Torres, [facility] for evaluation of hyperparathyroidism. HPI: Pavithra Talavera is a very pleasant 56 y.o. yo female with a PMH significant for hypothyroidism (diagnosed ~10 years ago), migraines, HTN, h/o rheumatic fever, is here for evaluation of hypercalcemia/hyperparathyroidism. She was evaluated for hyperparathyroidism in 2011 at [facility]. At that time had low Vit D and was pending further evaluation after vitamin D repletion. She does not remember any other work up after that initial visit. Reports she was repeatedly told in the past that her calcium is elevated but did not have further work up until recently. Her PCP recommended a month ago to restart taking Vit D, prescribed Vit D 400 units daily and to take rest up to 1000 units from dairy products. As per patient, recently done 24 urine calcium was high in ~600 (elevated). Had preeclampsia with both children, then diagnosed with HTN afterwards in 2000. Has been having issues with uncontrolled BP 3 years, has been trying different medications (bisprolol-HCTZ, then HCTZ stopped in 2011 with initial evaluation for hypercalcemia, then could not tolerate lisinopril). She is currently taking spironolactone, metoprolol and was recently prescribed amlodipine, but has not been taking until discussing it with me today because medication is labeled as calcium channel thu. At home this morning BP was 147/88. She reports fatigue more for last 1 year, constipation,occasional abdominal pain, GERD, muscle weakness, uncontrolled blood pressure. Has difficulty focusing. She had fractured little toe on the left foot 2 months ago. Broke ankle in college. Has been havinga lot of pain in right foot. Also reports she has pain in multiple bones and muscles, achy all overher body, which has been frustrating her. She has been living with constant pain for many years. She has small kidney stones as told by her PCP, pt was not aware. She had bladder infection, and on the imaging it was shown. Had partial hysterectomy in early 40s. Has DXA scan scheduled for 03/21/21 at [facility]. No family h/o of hyperparathyroidism, or any MEN related tumors. Mother had a hip fracture after age of 90. ROS: Constitutional: No heat or cold intolerance Eyes: No recent vision change ENT: No dysphagia, dental issues Cardiovascular: No chest pain or palpitations Respiratory: No cough, wheezing GI: No nausea, vomiting, diarrhea . Patient Active Problem List Diagnosis Code ??? Hypothyroidism E03.9 ??? Status post hysterectomy Z90.710 ??? Essential hypertension I10 ??? Gastroesophageal reflux K21.9 Allergies Allergen Reactions ??? Latex CIS - Localized Reaction ??? Iodine And Iodide Containing Products CIS - Anaphylaxis ??? Benzoin CIS - Localized Reaction ??? Ciprofloxacin (Mixture) CIS - Rash ??? Codeine Phosphate CIS - headache, nausea ??? Gloves, Latex CIS - Localized Reaction ??? Hydrocodone-Acetaminophen CIS - headache, nausea ??? Latex Dams CIS - Localized Reaction ??? Shellfish Derived CIS - swelling ??? Sulfa (Sulfonamide Antibiotics) CIS - rash, headache & sees spots Current Outpatient Medications on File Prior to Visit Medication Sig Dispense Refill ??? bisoprolol-hydrochlorothiazide (ZIAC) 2.5-6.25 mg per tablet ??? levothyroxine (SYNTHROID) 25 mcg tablet No current facility-administered medications on file prior to visit. Social History Socioeconomic History ??? Marital status: Spouse name: Not on file ??? Number of children: Not on file ??? Years of education: Not on file ??? Highest education level: Not on file Occupational History ??? Not on file Tobacco Use ??? Smoking status: Not on file ??? Smokeless tobacco: Not on file Substance and Sexual Activity ??? Alcohol use: Not on file ??? Drug use: Not on file ??? Sexual activity: Not on file Other Topics Concern ??? Not on file Social History Narrative ??? Not on file Social Determinants of Health Financial Resource Strain: Not on file Food Insecurity: Not on file Transportation Needs: Not on file Physical Activity: Not on file Housing Stability: Not on file No family history on file. PHYSICAL EXAM: There were no vitals taken for this visit. -telehealth visit Physical exam- deferred (telehealth visit) Recent labs from 02/01/21: PTH: 144 Ca: 11.6 (H) (range 8.5-10.1) Albumin: 4.2 25 OH Vitamin D: not done ALP: 204 (H) GFR >60 TSH: 1.48 24 Urine Ca/Cr: ~600 Assessment: Pavithra Talavera is a very pleasant 56 y.o. yo female with a PMH significant for hypothyroidism (diagnosed ~10 years ago), migraines, HTN, h/o rheumatic fever, is here for evaluation of hypercalcemia/hyperparathyroidism. # Primary Hyperparathyroidism Based on her elevated calcium along with elevated PTH and symptoms of hypercalcemia (achiness, constipation, elevated BP, difficulty focusing, etc) we anticipate she has primary hyperparathyroidism. Approximately 90% of primary hyperparathyroidism patients will have a parathyroid adenoma arising from one of their glands. Remainder of the patients will have multigland hyperplasia. Parathyroid cancer is a very rare cause of primary hyperparathyroidism. In general, patients selected for parathyroid surgery should have a localization test (a parathyroid ultrasound, or a sestamibi parathyroid scan) done prior. Successful pre-operative localization of an adenoma will allow for a directed (minimally invasive) parathyroidectomy. The NIH has published a set of guidelines on selecting patients who would benefit from surgery (which she meets). - Calcium > Upper limit of normal range + 1 - Osteoporosis (T-score < -2.5) - Kidney stones (or urinary calcium > 400mg/24h) - GFR 30% below expected for age - Age < 50 - Patient wishes surgical treatment Plan: - will reach out to her PCP to obtain records about last Vit D value ( in anticipation for surgery Vit D is important to evaluate for potential hungry bone syndrome) - advised to start amlodipine - advised to take Vit D supplementation only, no additional calcium, but not to restrict calcium from the diet - advised to hydrate well daily (at least 8 glasses of water a day) - will refer to Endocrine surgery - will order sestamibi scan (plan to schedule it on the same day se surgical visit) - has DXA scheduled on 03/21/21 in [place] Case discussed with Dr. Bradley. RTC in 6 months. Chelsea Lynn PGY4, Endocrinology Fellow Pager: [phone] * William Bradley MD - 03/06/2021 1:00 PM EST I have seen the patient during this telehealth visit and reviewed Dr Lynn's history and I agree with the details as written. The assessment and plan were formulated in discussion with me and Eleuterio with them as documented. Review of systems as documented, otherwise it is negative A/P: I agree with the details as written William Bradley MD [employer] Endocrinology Section [facility] documented in this encounter Plan of Treatment Scheduled Referrals Name Type Priority Associated Diagnoses Orde r Schedule Referral to General Surgery Outpatient Referral Routine Primary hyperparathyroidism Ordered: 03/08/2021 documented as of this encounter Visit Diagnoses Diagnosis Primary hyperparathyroidism- Primary documented in this encounter Care Teams Operator Automated Process Relationship Specialty Start Date End Date Diana Torres APRN [address] [place] [address] PCP - General Family Medicine 02/21/21 documented as of this encounter
--- OUTSIDE RECORDS SUMMARY | 2024-01-06 11:51 | XMS_ITS | Encounter Summary ---
Author Organization [facility] Address [address] [place] [address] Care Team Providers Care Counter Installer Name Role Phone Unavailable Primary Care Provider Unavailabl e Encounter Details Date Type Department Care Team (Late st Contact Info) Description 07/31/2001 11:28 EDT Hospital Encounter [address] [address] Nelson Edwards MD [address] [place] [address], [address] [place] [id number] Social History Tobacco Use Types Packs/Day Years [...]
--- OUTSIDE RECORDS SUMMARY | 2024-01-06 11:51 | XMS_ITS | Encounter Summary ---
Author Organization [facility] Address [address] [place] [address] Care Team Providers Care Film Developer Name Role Phone Mariusz Arroyo MD Primary Care Provider [phone] Encounter Details Date Type Department Care Team (Late st Contact Info) Description 02/07/2021 Lab Requisition [facility] Pathology & Laboratory Medicine - [address] [address] Outr Resulting Lab, Provider Social History Tobacco [...] Date/Time Associated Diagnosis Comments PTH INTACT Routine 02/07/2021 12:21 EDT documented in this encounter Results * (ABNORMAL) PTH INTACT (02/07/2021 12:21 EDT) Intact PTH 144(H) 19 - 88 pg/mL 02/08/2021 11:05 EDT [facility] Blood VENOUS BLOOD / Unknown 02/07/2021 12:21 EDT 02/07/2021 20:48 EDT Provider Outr Resulting Lab CHEMISTRY & BLOOD GAS ORDERABLES [facility] [address] [place] [address] documented in this encounter Visit Diagnoses Not on filedocumented in this encounter Care Teams Film Developer Relationship Specialty Start Date End Date Mariusz Arroyo MD [address] [place] [address] PCP - General 06/27/09 documented as of this encounter
--- OUTSIDE RECORDS SUMMARY | 2024-01-06 11:51 | XMS_ITS | Referral Summary ---
Author Organization [facility] Address [address] [place] [address] Care Team Providers Care Integrated Logistics Support Manager Name Role Phone Mariusz Arroyo MD Primary Care Provider [phone] Allergies Active Allergy Reactions Criticality Noted Date [...] 36.48 11/05/2011 1554 EDT Plan of Treatment Not on file Care Teams Integrated Logistics Support Manager Relationship Specialty Start Date End Date Mariusz Arroyo MD [address] [place] [address] PCP - General 06/27/09
--- OUTSIDE RECORDS SUMMARY | 2024-01-06 11:51 | XMS_ITS | Encounter Summary ---
Author Organization [facility] Address [address] [place] [address] Care Team Providers Care Nurse Clinical Name Role Phone Mariusz Arroyo MD Primary Care Provider [phone] Encounter Details Date Type Department Care Team (Late st Contact Info) Description 08/19/2006 Results Only [facility] - Maple conversion [address] [place] [address] Heraclio Brooks MD Social History Tobacco Use Types Packs/Day Years Used Date Smoking Tobacco: Never Assessed Sex and Gender Information Value Date Recorded Sex Assigned at Not on file Gender Identity Not on file Sexual Orientation Not on file documented as of this encounter Plan of Treatment Not on file documented as of this encounter Procedures Procedure Name Priority Date/Time Associated Diagnosis Comments HPV DETECTION, HIGH RISK TYPES Routine 08/19/2006 10:10 EDT CYTOPATHOLOGY Routine 08/19/2006 0:00 EDT documented in this encounter Results * HUMAN PAPILLOMA VIRUS DNA TEST (08/19/2006 10:10 EDT) Specimen Description Cervix, ThinPrep vial [facility] Result Negative for HPV types 16, 18, 31, 33, 35, 39, 45, 51, 52, 56, 58, 59, and 68. [facility] Report Status Final [id number] [facility] 08/19/2006 10:1 0 EDT 08/26/2006 10:10 EDT Heraclio Brooks MD MICROBIOLOGY - GENER AL ORDERABLES [facility] [address] [place] [address] * CYTOPATHOLOGY (08/19/2006 0:00 EDT) Pathology Report: CYTOPATHOLOGY REPORT Reports generated via electronic interface contain original data; however they are lacking the format of the original report. Caution should be taken when reading/interpreti ng unformatted reports. Name: ? PAVITHRA TALAVERA ? Accession #: ? [id number] : ? 1965 (Age: 41) ??F ?Collect Date: ? 08/19/2006 Location: ? [facility] ? Receive Date: ? 08/21/2006 Provider: ?HERACLIO BROOKS MD Copy to: ? Specimen/Source: ?ThinPrep Pap Test, Cervix/Endocervix, processed on TrackIF ThinPrep Imaging System, with manual evaluation Last Menstrual Period: ? Other: ? Additional clinical information: Previous paps wnl HPVDX - HPV testing requested regardless of diagnosis on current ThinPrep Pap test. ? SPECIMEN ADEQUACY ? Satisfactory for Evaluation - transformation zone component present GENERAL CATEGORIZATION ? Negative for Intraepithelial Lesion or Malignancy ? Document reviewed and electronically signed by: ? BONIFACIO Zurita(ASCP) ? Report Date: ??08/25/2006 10:35 End of Report [facility] 08/19/2006 08/21/2006 Heraclio Brooks MD PATHOLOGY ORDERABLES Performing Organization Address City/State/[facility] Co de Phone Number [facility] [address] [place] [address] documented in this encounter Visit Diagnoses Not on filedocumented in this encounter Care Teams Nurse Clinical Relationship Specialty Start Date End Date Mariusz Arroyo MD [address] [place] [address] PCP - General 06/27/09 documented as of this encounter
--- OUTSIDE RECORDS SUMMARY | 2024-01-06 11:51 | XMS_ITS | Continuity of Care Document ---
Author Organization [facility] Address [address] [place] [address] Care Team Providers Care Senior Bi Architect Name Role Phone Diana Torres Primary Care Physician Encounter NCTY_SC Date(s): 05/22/22 - 05/22/[address] [address] Discharge Disposition: Home or Self Care Attending Physician: Diana Torres TEA AND SPICE SUPERVISOR Admitting Physician: Diana Torres TEA AND SPICE SUPERVISOR Referring Physician: Diana Torres TEA AND SPICE SUPERVISOR Allergies, Adverse Reactions, Alerts Substance Reaction Severity [...] hr, # 20 tab, 0 Refill(s), Pharmacy: [id number], 170.1, cm, 05/10/22 13:25:00 EST, Height/Length [...] # 30 cap, 1 Refill(s), [id number] Start Date: 02/21/22 Stop Date: [...] Personnel Name: Diana Torres NP Address: Address: [address] [place] [id number] [place] [address]
--- OUTSIDE RECORDS SUMMARY | 2024-01-06 11:51 | XMS_ITS | Encounter Summary ---
Author Organization [facility] [place] [address] Care Team Providers Care Human Resources Talent Manager Name Role Phone Diana Torres APRN Primary Care Provider [phone] Encounter Details Date Type Department Care Team (Late st Contact Info) Description 06/08/2021 Telephone [place] [address] Makenzie Salazar MD [facility] [place] [address] Social History Tobacco Use Types Packs/Day Years Used Date Smoking Tobacco: Never Smokeless Tobacco: Never Sex and Gender Information Value Date Recorded Sex Assigned at Not on file Gender Identity Not on file Sexual Orientation Not on file documented as of this encounter Miscellaneous Notes * Telephone Encounter - Makenzie Salazar MD - 06/08/2021 4:09 PM EST I called Ms. Pavithra Talavera today to discuss the results of her pathology. Specifically, this demonstrated Right lower parathyroid, excision: ??- Enlarged, hypercellular parathyroid (0.54 g) ??- Focal atrophic thymic tissue. She is doing okay. It sounds like she has some lip/mouth lacerations related to intubation. Her voice sounds normal. She is not complaining of perioral numbness/tingling, numbness/tingling in the hands, or muscle spasms. She will titrate her calcium supplementation to symptoms. I answered her questions, and we will discuss further at her regularly-scheduled postoperative follow up appointment. documented in this encounter Plan of Treatment Not on file documented as of this encounter Visit Diagnoses Not on filedocumented in this encounter Care Teams Human Resources Talent Manager Relationship Specialty Start Date End Date Diana Torres APRN [address] [place] [address] PCP - General Family Medicine 02/21/21 documented as of this encounter
--- OUTSIDE RECORDS SUMMARY | 2024-01-06 11:51 | XMS_ITS | Encounter Summary ---
Author Organization [facility] Address [address] [place] [address] Care Team Providers Care Corncob Pipe Supervisor Name Role Phone Mariusz Arroyo MD Primary Care Provider [phone] Encounter Details Date Type Department Care Team (Late st Contact Info) Description 01/07/2022 Lab Requisition [facility] - [address] [address] Outr Resulting Lab, Provider Social History Tobacco [...] Associated Diagnosis Comments VITAMIN D (25,OH) Routine 01/07/2022 11: 13 EDT documented in this encounter Results * (ABNORMAL) VITAMIN D (25,OH) (01/07/2022 11:13 EDT) 25OH Vitamin D Tot 29(L) 30 - 100 ng/mL 01/08/2022 10:09 EDT [facility] Comment: Vitamin D 25,OH Interpretive Ranges: Deficiency: ??<10.0 ng/mL Insufficiency: ??10.0 - 30.0 ng/mL Sufficiency: ??30.0 - 100.0 ng/mL Toxicity: ??>100.0 ng/mL Blood VENOUS BLOOD / Unknown 01/07/2022 11:13 EDT 01/07/2022 21:50 EDT Provider Outr Resulting Lab CHEMISTRY & BLOOD GAS ORDERABLES [facility] [address] [place] [address] documented in this encounter Visit Diagnoses Not on filedocumented in this encounter Care Teams Corncob Pipe Supervisor Relationship Specialty Start Date End Date Mariusz Arroyo MD [address] [place] [address] PCP - General 06/27/09 documented as of this encounter
--- OUTSIDE RECORDS SUMMARY | 2024-01-06 11:51 | XMS_ITS | Encounter Summary ---
Author Organization [facility] Address [address] [place] [address] Care Team Providers Care Water Quality Control Engineer Name Role Phone Mariusz Arroyo MD Primary Care Provider [phone] Encounter Details Date Type Department Care Team (Late st Contact Info) Description 01/08/2002 Results Only [facility] - Maple conversion [address] [place] [address] Heraclio Brooks MD Social History Tobacco Use [...] Priority Date/Time Associated Diagnosis Comments CYTOPATHOLOGY Routine 01/08/2002 0:00 EDT documented in this encounter Results * CYTOPATHOLOGY (01/08/2002 0:00 EDT) Pathology Report: CYTOPATHOLOGY REPORT Reports generated via electronic interface contain original data; however they are lacking the format of the original report. Caution should be taken when reading/interpreti ng unformatted reports. Name: ? PAVITHRA TALAVERA ? Accession #: ? [id number] : ? 1965 (Age: 36) ??F ?Collect Date: ? 01/08/2002 Location: ? [facility] ? Receive Date: ? 01/11/2002 Provider: ?HERACLIO BROOKS MD Copy to: ? Specimen/Source: ?ThinPrep Pap Test, Cervix/Endocervix Last Menstrual Period: ? 02/12 Menstrual/Pregnanc y Status: ? Post Other: ? HPVA - HPV testing requested if ASC-US on the current ThinPrep Pap test. ? SPECIMEN ADEQUACY ? Satisfactory for Evaluation - transformation zone component present GENERAL CATEGORIZATION ? Negative for Intraepithelial Lesion or Malignancy ? Document reviewed and electronically signed by: ? Kim Velázquez, SCT(ASCP) ? Report Date: ??01/15/2002 15:06 End of Report [facility] 01/08/2002 01/11/2002 Heraclio Brooks MD PATHOLOGY ORDERABLES Performing Organization Address City/State/[facility] Co de Phone Number [facility] [address] [place] [address] documented in this encounter Visit Diagnoses Not on filedocumented in this encounter Care Teams Water Quality Control Engineer Relationship Specialty Start Date End Date Mariusz Arroyo MD [address] [place] [address] PCP - General 06/27/09 documented as of this encounter
--- OUTSIDE RECORDS SUMMARY | 2024-01-06 11:51 | XMS_ITS | Encounter Summary ---
[place] [address] Care Team Providers Care Security Officer Name Role Phone Melissa Dianaanahi Cantu APRN Primary Care Provider [phone] Reason for Visit * Auth/Cert Specialty Diagnoses / Procedures Referred By Contac t Referred To Contact Diagnoses Hyperparathyroidism HYPERPARATHYROIDISM Procedures PRO EXPLORE PARATHYROID GLANDS PRG EMG, LARYNX PARATHYROIDECTOMY OR EXPLORATION OF PARATHYROID(S) (WRVU 15.6) FACIAL NERVE MONITORING, SETUP LARYNGEAL (WRVU 1.57) Referral ID Status Reason Start Date Expiration Date Visits Re quested Visits Authorized [id number] 1 1 Encounter Details Date Type Department Care Team (Latest Contact Info) Description 06/05/2021 9:26 AM EST - 06/05/2021 3:43 PM EST Hospital Encounter [place] [address] Michelle Corbett MD [facility] [place] [address] Hyperparathyroidism Discharge Disposition: Home Social History Tobacco Use Types Packs/Day Years [...] Take NSAIDS or Tylenol every 6 hours [id number] for the first 3-5 days following surgery [...] will be mailed to you Please call [phone] to confirm the date and time of your appointment if you do not hear from us in the next 2 weeks Call Doctor for: Call if you have trouble talking or breathing (call 911 if this is severe) Call if you [...] with your PCP. Phone number for questions: [phone] before 5 PM on weekdays [phone] after 5 PM and on weekends/holidays. Ask for the general surgery resident installation and service technician. documented in this encounter Medications at Time of Discharge Medication Sig Dispensed Refills Start Date End Date cholecalciferol, Vitamin D3, (cholecalciferol, Vitamin D3,) 50 mcg (2,000 unit) Capsule Take 2,000 Units by mouth daily. docusate sodium (Colace) 100 mg Capsule Take 100 mg by mouth daily. UNKNOWN TO PATIENTIndications:janel monzon for immune support Take 50 mg by mouth daily. Indications: janelberry for immune support acetaminophen (Tylenol) 500 mg [...] hx of primary hyperparathyroidism who presents to [facility] for parathyroidectomy. Past Medical History: Diagnosis Date [...] ONE TABLET BY MOUTH EVERY DAY S: aPvithra Talavera endorses no recent change in health. [...] Operative Note Patient Name: Pavithra Talavera : [id number] MR#: [id number] Case Date: 06/05/2021 Surgeon: Surgeon(s) and Role: [...] Corbett MD - 06/05/2021 11:[address] [facility] Operative Note Patient Name: Pavithra Talavera : [id number] MR#: [id number] Case Date: 06/05/2021 Surgeon: Surgeon(s) and Role: [...] anesthesia was completed by anesthesiology with the [employer] recurrent laryngeal nerve monitoring system. A crease [...] 11:25 AM EST Needle Electromyography, Larynx Global (06502) 06/05/2021 10:24 AM EST HYPERPARATHYROIDIS M Explore Parathyroid Glands (84581) 06/05/2021 10:24 AM EST HYPERPARATHYROIDIS M documented in this encounter Results * Surgical Pathology Report (06/05/2021 12:18 PM EST) Final Diagnosis [id number] ? Location: [facility]; [facility]; A The signing pathologist has (i) examined the relevant preparation(s) for the specimen(s) and (ii) rendered or confirmed the diagnosis(es). . ?Surgical Pathology DIAGNOSIS Right lower parathyroid, excision: - Enlarged, hypercellular parathyroid (0.54 g) - Focal atrophic thymic tissue. Electronically signed by: ?MD Maverick, Manish Mcdonald Verified: ??06/08/2021 12:08 ??Pathologist Performed at: ??-[facility] Dept. of Pathology, [place], [place] SPECIMEN(S) SUBMITTED A - Right lower [...] serially sectioned ??lv 06/08/2021 12:08 PM EST [facility] PARATHYROID STRUCTURE / Unknown 06/05/2021 12:18 PM EST 06/05/2021 12:18 PM EST Michelle Corbett MD PATHOLOGY/CYTOLOG Y ORDERABLES Performing Organization Address City/[facility]/ZIP Co de Phone Number [facility] [place] [address] * Specimen to Pathology (06/05/2021 12:18 PM EST) AP Specimen 06/05/2021 12:1 8 PM EST 06/05/2021 12:18 PM EST Narrative [facility] - 06/05/2021 12:18 PM EST Specimen requisition ordered. ??Separate Pathology report to follow Michelle Corbett MD PATHOLOGY/CYTOLOG Y ORDERABLES Performing Organization Address City/[facility]/ZIP Co de Phone Number [facility] [place] [address] * Intraoperative PTH ([facility]) (06/05/2021 12:03 PM EST) PTH, Intraoperative 16 15 - 65 pg/mL [facility] Comment: Called by: vince, Read back by: reyna almazan , Date/Time:06/05/21 12:39. 15 min post IO-PTH A 50 % decrease in venous iPTH levels at 10 min post adenoma excision is expected if all the hypersecreting parathyroid tissue has been removed (Aroldo GL et al. Surgery 1993:114; 8787-0996) Blood 06/05/2021 12:0 3 PM EST 06/05/2021 12:09 PM EST Narrative Resulting Agency Comment Spec In Lab Michelle Corbett MD CHEMISTRY ORDERAB LES Performing Organization Address [facility] Co de Phone Number [facility] [place] [address] * Intraoperative PTH ([facility]) (06/05/2021 11:57 AM EST) PTH, Intraoperative 22 15 - 65 pg/mL [facility] Comment: Called by: vince, Read back by: reyna almazan, Date/Time:06/05/21 12:38. 10 min post IO-PTH A 50 % decrease in venous iPTH levels at 10 min post adenoma excision is expected if all the hypersecreting parathyroid tissue has been removed (Aroldo GL et al. Surgery 1993:114; 4953-7103) Blood 06/05/2021 11:5 7 AM EST 06/05/2021 12:02 PM EST Narrative Resulting Agency Comment Spec In Lab Michelle Corbett MD CHEMISTRY ORDERAB LES Performing Organization Address [facility]/ZIP Co de Phone Number [facility] [place] [address] * (ABNORMAL) Intraoperative PTH ([facility]) (06/05/2021 11:44 AM EST) PTH, Intraoperative 73(H) 15 - 65 pg/mL [facility] Comment: Called by: vince, Read back by: reyna almazan, Date/Time:06/05/21 12:15. IO-PTH pre excision A 50 % decrease in venous iPTH levels at 10 min post adenoma excision is expected if all the hypersecreting parathyroid tissue has been removed (Aroldo GL et al. Surgery 1993:114; 9913-2904) Blood 06/05/2021 11:4 4 AM EST 06/05/2021 11:49 AM EST Narrative Resulting Agency Comment Spec In Lab Michelle Corbett MD CHEMISTRY ORDERAB LES Performing Organization Address [facility] de Phone Number [facility] [place] [address] * (ABNORMAL) Intraoperative PTH ([facility]) (06/05/2021 11:25 AM EST) PTH, Intraoperative 315(H) 15 - 65 pg/mL [facility] Comment: Called by: vince, Read back by: reyna almazan, Date/Time:06/05/21 12:02. baseline IO-PTH A 50 % decrease in venous iPTH levels at 10 min post adenoma excision is expected if all the hypersecreting parathyroid tissue has been removed (Aroldo GL et al. Surgery 1993:114; 4510-6725) Blood 06/05/2021 11:2 5 AM EST 06/05/2021 11:32 AM EST Narrative Resulting Agency Comment Spec In Lab Michelle Corbett MD CHEMISTRY ORDERAB LES Performing Organization Address [facility] Co de Phone Number [facility] [place] [address] documented in this encounter Visit Diagnoses Diagnosis Hyperparathyroidism Hyperparathyroidism, unspecified documented in this encounter Administered Medications Inactive Administered [...] Given 06/05/2021 9:58 AM EST 975 mg HYDROmorphone (Dilaudid) (2 mg/mL) multi-dose injection solution [...] Day of Surgery (Day of Procedure), Routine 0958 (Given - Provid er: Zayda Goldman RN) [...] 1014 (New Bag - Prov ider: Zayda Goldman, RN) PRN Medication Order 06/03/2021 06/04/2021 06/05/2021 [...] Routine documented in this encounter Care Teams Security Officer Relationship Specialty Start Date End Date Diana Torres, HEAVY EQUIPMENT SERVICE TECHNICIAN [address] [place] [id number] PCP - General Family Medicine 02/21/21 documented as of this encounter
--- OUTSIDE RECORDS SUMMARY | 2024-01-06 11:51 | XMS_ITS | Encounter Summary ---
Author Organization [facility] Address [address] [place] [address] Care Team Providers Care Critical Care Unit Manager Name Role Phone Mariusz Arroyo MD Primary Care Provider Encounter Details Date Type Department Care Team (Late st Contact Info) Description 06/29/2009 11:12 EDT - 06/29/2009 23:59 EDT Hospital Encounter [facility] [place] [address] [place] [address] Salvador Garza MD [address] [facility] [place] [address] Discharge Disposition: Home or Self Care Social History Tobacco Use Types Packs/Day Years Used Date Smoking Tobacco: Never Assessed Sex and Gender Information Value Date Recorded Sex Assigned at Not on file Gender Identity Not on file Sexual Orientation Not on file documented as of this encounter Discharge Disposition Disposition Code Departure Means Destination Home or Self Senior Care documented in this encounter Plan of Treatment Not on file documented as of this encounter Procedures Procedure Name Priority Date/Time Associated Diagnosis Comments TISSUE TRANSGLUTAMINASE ANTIBODY Routine 06/29/2009 11:26 EDT HELICOBACTER PYLORI IGG ANTIBODY Routine 06/29/2009 11:26 EDT IGA Routine 06/29/2009 11:26 EDT documented in this encounter Results * HELICOBACTER PYLORI IGG ANTIBODY (06/29/2009 11:26 EDT) H Pylori IgG <0.4 U/mL [facility] Comment: Interpretation: ??Negative Negative is <0.9 U/mL Assayed utilizing the DPC Immulite 2500. Values may vary with other methods. Blood specimen (specimen) 06/29/2009 11:26 EDT 06/29/2009 11:27 EDT Salvador Garza MD CHEMISTRY & BLOOD GAS ORDERABLES Performing Organization Address [facility] Co de Phone Number [facility] [address] [place] [address] * TISSUE TRANSGLUTAMINASE ANTIBODY (06/29/2009 11:26 EDT) Pathologist [facility] Tissue Transglutaminase Ab 0.38 <15.01 U/ml [facility] Blood specimen (specimen) 06/29/2009 11:26 EDT 06/29/2009 11:27 EDT Salvador Garza MD IMMUNOLOGY AND SER OLOGY ORDERABLES Performing Organization Address [facility] de Phone Number [facility] [address] [place] [address] * (ABNORMAL) IGA (06/29/2009 11:26 EDT) Pathologist [facility] IgA 65(L) 82 - 453 mg/dl [facility] Blood specimen (specimen) 06/29/2009 11:26 EDT 06/29/2009 11:27 EDT Salvador Garza MD CHEMISTRY & BLOOD GAS ORDERABLES Performing Organization Address [facility] de Phone Number [facility] [address] [place] [address] documented in this encounter Visit Diagnoses Not on filedocumented in this encounter Care Teams Critical Care Unit Manager Relationship Specialty Start Date End Date Mariusz Arroyo MD [address] [place] [id number] PCP - General 06/27/09 documented as of this encounter
--- OUTSIDE RECORDS SUMMARY | 2024-01-06 11:51 | XMS_ITS | Encounter Summary ---
[place] [address] Care Team Providers Care Outbound Sales Executive Name Role Phone Diana Torres APRN Primary Care Provider [phone] Encounter Details Date Type Department Care Team (Late st Contact Info) Description 07/01/2021 Orders [place] [address] Makenzie Salazar MD [facility] [place] [address] S/P parathyroidectomy Social History Tobacco Use Types [...] status documented in this encounter Care Teams Outbound Sales Executive Relationship Specialty Start Date End Date Diana Torres APRN [address] [place] [address] PCP - General Family Medicine 02/21/21 documented as of this encounter
--- OUTSIDE RECORDS SUMMARY | 2024-01-06 11:51 | XMS_ITS | Encounter Summary ---
[place] [address] Care Team Providers Care Integration Director Name Role Phone Diana Torres MC Primary Care Provider [phone] Reason for Visit * Auth/Cert Specialty Diagnoses / Procedures Referred By Contac t Referred To Contact Diagnoses Hyperparathyroidism HYPERPARATHYROIDISM Procedures PRO EXPLORE PARATHYROID GLANDS PRG EMG, LARYNX PARATHYROIDECTOMY OR EXPLORATION OF PARATHYROID(S) (WRVU 15.6) FACIAL NERVE MONITORING, SETUP LARYNGEAL (WRVU 1.57) Referral ID Status Reason Start Date Expiration Date Visits Re quested Visits Authorized [id number] 1 1 Encounter Details Date Type Department Care Team (Late st Contact Info) Description 06/05/2021 10:25 AM EST Anesthesia Event [place] [address] Abhijit Juan MD [facility] [place] [address] Cehko Noland CRNA [facility] DR [place] [address] Anesthesia Record Procedure Summary Procedure Name Responsible Anesthesiologist Anesthesia Start Time Anesthesia Stop Time PARATHYROIDECTOMY OR EXPLORATION OF PARATHYROID(S) (WRVU 15.6) (Neck) Abhijit Juan MD 06/05/21 1025 06/05/21 1259 Events Date Time Event Comment 06/05/2021 0932 1025 AN Verify 1025 Start 1025 An Start Data 1030 An Induction 1033 An Intubation 1045 Anesthesia Ready 1207 Quick Note Valsava; PSR 1246 Extubation/LMA Out 1246 an stop data 1255 Recovery or ICU Handoff Rosie ent care was transferred to the destination unit staff after review of the patient's medical history, current anesthetic/surgical status and plan, according to the Provider Handoff Checklist. 1259 Stop Meds Name Total Midazolam 2 mg fentaNYL 50 mcg IV Lidocaine 100 mg Propofol 260 mg PHENYLephrine 30 mcg ePHEDrine 10 mg Ondansetron 4 mg Dexamethasone 8 mg Succinylcholine 180 mg Propofol INF 2,121.2 mg REMIfentanil INF 2 mg PHENYLephrine INF 2,640 mcg Lactated Ringers 500 mL Lactated Ringers 500 mL * Agents Name O2 Air N2O Sevoflurane (et) * Blood No blood administrations on file. Lines, Drains, and Airways Type Details Placement Removal Incision 06/05/21; 1107; anterior; neck 06/05/21 1107 by Janae Sun, RN (RETIRED) Peripheral IV Line - Single Lumen 06/05/21; 1013; metacarpal vein (top of hand), right; [id number] catheter system; Anatomical Landmarks; 20 gauge; distraction; 06/05/21; 1542 06/05/21 1013 by Zayda Goldman RN 06/05/21 1542 by Kota Rayo, RN ETT Mask Ventilation: Adjunct (2); ETT Type: Cuffed, Oral, NIM; ETT Size: 7 mm; Indirect: Video; Notes: Asleep, Pre-O2, RSI, Stylette; Attempts: 2; Laryngoscopy Grade: 1; ETT Placement Verified By: Auscultation, Capnometry, Visual; Secured at Teeth: 20 cm; Inserted by: MD Kathy; Removal Date: 06/05/21; Removal Time: 1246 06/05/21 1033 by Cheko Noland CRNA 06/05/21 1246 by Cheko Noland CRNA ETT Removal Date: ; Removal Time: 1246 06/05/21 1033 by Cheko Noland CRNA 06/05/21 1246 by Cheko Noland CRNA (RETIRED) Peripheral IV Line - Single Lumen 06/05/21; 1041; dorsal arch vein (top of hand), left; [id number] catheter system; Anatomical Landmarks; 18 gauge; S.Ludin, FLOOR WAXER; 06/05/21; 1542 06/05/21 1041 by Cheko Noland CRNA 06/05/21 1542 by Kota Rayo RN documented in this encounter Social History Tobacco Use Types Packs/Day Years Used Date Smoking Tobacco: Never Smokeless Tobacco: Never Sex and Gender Information Value Date Recorded Sex Assigned at Not on file Gender Identity Not on file Sexual Orientation Not on file documented as of this encounter OR Notes * Anesthesia Postprocedure Evaluation - Abhijit Juan MD - 06/05/2021 2:57 PM EST Department of Anesthesiology Post-procedure Note Patient: Pavithra Talavera Procedure Summary Date: 06/05/21 Room / Location: [facility] OR [address] [place] [address] MAIN OR Anesthesia Start: 1025 Anesthesia Stop: 1348 Procedures: PARATHYROIDECTOMY OR EXPLORATION OF PARATHYROID(S) (WRVU 15.6) (N/A Neck) FACIAL NERVE MONITORING, SETUP LARYNGEAL (WRVU 1.57) (N/A Neck) Diagnosis: (HYPERPARATHYROIDISM) Surgeons: Makenzie Salazar MD Responsible Provider: Abhijit Juan MD Anesthesia Type: general ASA Status: 3 All Anesthesia Providers: Anesthesiologist: bAhijit Juan MD FLOOR WAXER: Cheko Noland CRNA Vitals Value Taken Time BP 138/78 06/05/21 1415 Temp 36.1 ??C (97 ??F) 06/05/21 1250 Pulse 65 06/05/21 1427 Resp 17 06/05/21 1427 SpO2 87 % 06/05/21 1427 Pain Level 5 06/05/21 1359 Vitals shown include unvalidated device data. Patient Location: PACU/[facility] Level of Consciousness: Awake and Alert Pain Management: Satisfactory Analgesia PONV: None Cardiovascular Status: At Baseline and Hemodynamically Stable Respiratory Status: At Baseline and Room Air Postoperative Fluid Status: Intravascular EUvolemia Possible Anesthetic Complications: NONE apparent at time of evaluation Final Primary Anesthesia Type: General (The anesthetic type performed was the same as planned.) Comments: ABHIJIT JUAN MD * Anesthesia Preprocedure Evaluation - Abhijit Juan MD - 06/05/2021 9:29 AM EST Pre-Anesthesia Evaluation for: Pavithra Talavera a 56 y.o. female. Procedure(s): PARATHYROIDECTOMY OR EXPLORATION OF PARATHYROID(S) (WRVU 15.6) FACIAL NERVE MONITORING, SETUP LARYNGEAL (WRVU 1.57) Patient Active Problem List Diagnosis Date Noted ??? Essential hypertension 03/06/2021 ??? Gastroesophageal reflux 03/06/2021 ??? Hypothyroidism 11/05/2011 ??? Status post hysterectomy 11/04/2009 Past Medical History: Diagnosis Date ??? GERD (gastroesophageal reflux disease) ??? Hyperparathyroidism ??? Hypertension ??? Hypothyroid Past Surgical History: Procedure Laterality Date ??? HYSTERECTOMY Social History Tobacco Use ??? Smoking status: Never Smoker ??? Smokeless tobacco: Never Used Substance Use Topics ??? Alcohol use: Not on file Social History Substance and Sexual Activity Drug Use Not on file Allergies Allergen Reactions ??? Latex CIS - Localized Reaction ??? Iodine And Iodide Containing Products CIS - Anaphylaxis ??? Benzoin CIS - Localized Reaction ??? Ciprofloxacin (Mixture) CIS - Rash ??? Codeine Phosphate CIS - headache, nausea ??? Gloves, Latex CIS - Localized Reaction ??? Hydrocodone-Acetaminophen CIS - headache, nausea ??? Latex Dams CIS - Localized Reaction ??? Lisinopril Rash, swollen lips and palpitations ??? Shellfish Derived CIS - swelling ??? Sulfa (Sulfonamide Antibiotics) CIS - rash, headache & sees spots Medications: MAR and/or home medications have been reviewed. Physical Exam: Preprocedure Vitals Current as of 06/05/21 0929 No BP, pulse, respiration, SpO2, or temperature recorded. Height: Weight: BMI: IBW: Airway Assessment: Mallampati: III Neck ROM: limited Cardiovascular Assessment: system normal Pulmonary Assessment: unlabored breathing Dental Assessment: Misc Assessment: IV access: Peripheral line Last Filed Perioperative Cognitive Screening None Anesthesia Plan: ASA 3 general, with a(n) intravenous induction Parathyroidectomy BMI 45 GERD HTN preop tyl VL available GA/NIMtube Informed Consent: Anesthetic plan and risks discussed with patient and spouse. Plan discussed with FLOOR WAXER. Anesthesia Screening documented in this encounter Plan of Treatment Not on file documented as of this encounter Visit Diagnoses Not on filedocumented in this encounter Administered Medications Inactive Administered Medications - up to 3 most recent administrations Medication Order MAR Action Action Date Dose Rate Site dexamethasone (Decadron) injection Intravenous, PRN, Starting on Fri06/05/21 at 1056, Until Fri06/05/21 at 1348, Anesthesia Intra-op, Routine Given 06/05/2021 10:56 AM EST 8 mg ePHEDrine sulfate (5 mg/mL) multi-dose injection Intravenous, PRN, Starting on Fri06/05/21 at 1056, Until Fri06/05/21 at 1348, Anesthesia Intra-op, Routine Given 06/05/2021 10:56 AM EST 10 mg fentaNYL (pf) (50 mcg/mL) multi-dose injection Intravenous, PRN, Starting on Fri06/05/21 at 1030, Until Fri06/05/21 at 1348, Anesthesia Intra-op, Routine Given 06/05/2021 10:30 AM EST 50 mcg lactated ringers infusion Intravenous, CONTINUOUS PRN, Starting on Fri06/05/21 at 1025, Until Fri06/05/21 at 1348, Anesthesia Intra-op New Bag 06/05/2021 10:25 AM EST lactated ringers infusion Intravenous, CONTINUOUS PRN, Starting on Fri06/05/21 at 1045, Until Fri06/05/21 at 1348, Anesthesia Intra-op New Bag 06/05/2021 10:45 AM EST lidocaine (pf) (Xylocaine) (20 mg/mL) 2% injection syringe Intravenous, PRN, Starting on Fri06/05/21 at 1030, Until Fri06/05/21 at 1348, Anesthesia Intra-op, Routine Given 06/05/2021 10:30 AM EST 100 mg midazolam (pf) (Versed) (1 mg/mL) multi-dose injection Intravenous, PRN, Starting on Fri06/05/21 at 1025, Until Fri06/05/21 at 1348, Anesthesia Intra-op, Routine Given 06/05/2021 10:25 AM EST 2 mg ondansetron (pf) (Zofran) (2 mg/mL) injection Intravenous, PRN, Starting on Fri06/05/21 at 1238, Until Fri06/05/21 at 1522, Anesthesia Intra-op, Routine Given 06/05/2021 12:38 PM EST 4 mg PHENYLephrine (Gabriel-Synephrine) (80 mcg/mL) in sodium chloride 0.9% 250 mL infusion Intravenous, CONTINUOUS PRN, Starting on Fri06/05/21 at 1057, Until Fri06/05/21 at 1348, Anesthesia Intra-op, Routine Rate/Dose Change 06/05/2021 11:51 AM EST 40 mcg/min 30 mL/hr New Bag 06/05/2021 10:57 AM EST 20 mcg/min 15 mL/hr PHENYLephrine in NS (PF) (GABRIEL-SYNEPHRINE) 0.8 mg/10 mL (80 mcg/mL) multi-dose injection Syrg Intravenous, PRN, Starting on Fri06/05/21 at 1121, Until Fri06/05/21 at 1348, Anesthesia Intra-op, Routine Given 06/05/2021 11:21 AM EST 30 mcg propofoL (Diprivan) (10 mg/mL) infusion Intravenous, CONTINUOUS PRN, Starting on Fri06/05/21 at 1040, Until Fri06/05/21 at 1348, Anesthesia Intra-op, Routine Rate/Dose Change 06/05/2021 11:51 AM EST 160 mcg/kg/min 125.856 mL/hr Rate/Dose Change 06/05/2021 11:15 AM EST 175 mcg/kg/min 13 7.655 mL/hr New Bag 06/05/2021 10:40 AM EST 200 mcg/kg/min 157.32 m L/hr propofoL (Diprivan) 10 mg/mL bolus injection (Anesthesia) Intravenous, PRN, Starting on Fri06/05/21 at 1030, Until Fri06/05/21 at 1348, Anesthesia Intra-op Given 06/05/2021 10:34 AM EST 60 mg Given 06/05/2021 10:30 AM EST 200 mg remifentaniL (Ultiva) (0.02 mg/mL) infusion (Anesthesia) Intravenous, CONTINUOUS PRN, Starting on Fri06/05/21 at 1040, Until Fri06/05/21 at 1348, Anesthesia Intra-op Rate/Dose Change 06/05/2021 11:21 AM EST 0.15 mcg/kg/min 58.995 mL/hr New Bag 06/05/2021 10:40 AM EST 0.2 mcg/kg/min 78.66 mL /hr succinylcholine (Anectine;Quelicin) (20 mg/mL) injection Intravenous, PRN, Starting on Fri06/05/21 at 1030, Until Fri06/05/21 at 1348, Anesthesia Intra-op, Routine Given 06/05/2021 10:30 AM EST 180 mg documented in this encounter Care Teams Integration Director Relationship Specialty Start Date End Date Diana Torres, FOOT SETTER [address] [place] [id number] PCP - General Family Medicine 02/21/21 documented as of this encounter
--- OUTSIDE RECORDS SUMMARY | 2024-01-06 11:51 | XMS_ITS | Encounter Summary ---
Author Organization [facility] Address [facility] [place] [address] Care Team Providers Care Manager Personnel Selection Name Role Phone Melissa Diana Cantu APRN Primary Care Provider [phone] Reason for Visit * Reason Comments Establish Care * Consultation (Routine) - Closed Specialty Diagnoses / Procedures Referred By Contaj t Referred To Contact General Surgery Diagnoses Primary hyperparathyroidism Chelsea Lynn MD [facility] [place] [address] Makenzie Salazar MD [facility] [place] [address] Referral ID Status Reason Start Date Expiration Date V isits Requested Visits Authorized [id number] Closed Consult, Test & Treat 03/08/2021 03/08/2022 1 1 Encounter Details Date Type Department Care Team (Late st Contact Info) Description 04/26/2021 1:30 PM EST Office [place] [address] Makenzie Salazar MD [facility] [address] Breanna Rivers APRN [facility] [place] [address] Hyperparathyroidism, primary Social History Tobacco Use Types Packs/Day Years Used Date Smoking Tobacco: Never Smokeless Tobacco: Never Sex and Gender Information Value Date Recorded Sex Assigned at Not on file Gender Identity Not on file Sexual Orientation Not on file documented as of this encounter Last Filed Vital Signs Vital Sign Reading Time Taken Comments Blood Pressure 174/87 04/26/2021 1:36 PM EST anxious, in pain, headache Pulse 76 04/26/2021 1:36 PM EST Temperature 36.4 ??C (97.5 ??F) 04/26/2021 1 :36 PM EST Respiratory Rate 18 04/26/2021 1:36 PM EST Oxygen Saturation 98% 04/26/2021 1:3 6 PM EST Inhaled Oxygen Concentration - - Weight 128.8 kg (284 lb) 04/26/2021 1:3 6 PM EST Height 167.6 cm (5' 6) 04/26/2021 1:36 PM EST Body Mass Index 45.84 04/26/2021 1:36 PM EST documented in this encounter Progress Notes * Makenzie Salazar MD - 04/26/2021 1:30 PM EST Images from the original note were not included. Endocrine Surgery Initial Consultation HPI: Ms. Pavithra Talavera is a very pleasant 56 y.o. year old female who presents for evaluation of primary hyperparathyroidism as a referral from Dr. Lynn. Her hypercalcemia was initially detected on routine labs and she believes this dates back to 2011. She had a recent ultrasound of kidneys after a UTI and she was found to have small stones. She does not have a history of osteoporosis. There is not a recent history of fractures. She reports symptoms of hyperparathyroidism includingfatigue, achiness and trouble focusing. She has found a lot of validation in a parathyroid Facebook group, asshe relates strongly to many of the symptoms and stories she sees there. There is not a history of previous anterior neck surgery. She does not have a family history of endocrinopathies, hypercalcemia or endocrine malignancy. She presents today for consideration of surgical management of her hyperparathyroidism. Recent labs: Serum calcium 11.6 mg/dL PTH 144 pg/mL 25-OH Vitamin D 19 ng/mL Ionized Calcium mmol/L Phosphorus mg/dL 24 hour urine calcium 600 mg/24hr Recent studies: Recent DEXA scan: osteopenia per report, I do not have a copy of this. Sestamibi scan: not yet performed Cervical ultrasound has not yet been performed. Past Medical History: Diagnosis Date ??? GERD (gastroesophageal reflux disease) ??? Hyperparathyroidism ??? Hypertension ??? Hypothyroid Past Surgical History: Procedure Laterality Date ??? HYSTERECTOMY Current Outpatient Medications on File Prior to Visit Medication Sig Dispense Refill ??? spironolactone (ALDACTONE) 50 mg Tablet TAKE [...] ONE TABLET BY MOUTH EVERY DAY ??? amLODIPine (Norvasc) 2.5 mg Tablet Take 2.5 mg by mouth daily. No current facility-administered medications on file prior to visit. Allergies as of 04/26/2021 - Review Complete 04/26/2021 Allergen Reaction Noted ??? Latex ??? Iodine and iodide containing products ??? Benzoin ??? Ciprofloxacin (mixture) ??? Codeine phosphate ??? Gloves, latex ??? Hydrocodone-acetaminophen ??? Latex dams ??? Lisinopril 03/06/2021 ??? Shellfish derived ??? Sulfa (sulfonamide antibiotics) Family History: No thyroid cancer. No pituitary, pancreas or adrenal tumors. No parathyroid disease. 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 She lives with her . She has a 6- month old grandson who lives in [place]. She does not smoke. No etoh. No professional public speaking or singing Review of Systems: 10 of 14 systems reviewed and all negative except as per HPI Encounter Vitals: BP 174/87 (BP Location (NBP): Right arm, Patient Position: Sitting, BP Cuff Sizes: Large Adult (32-43 cm)) Comment: anxious, in pain, headache Pulse 76 Temp 36.4 ??C (97.5 ??F) Resp 18 Ht 167.6 cm (5' 6) Wt 128.8 kg (284 lb) SpO2 98% BMI 45.84 kg/m?? Physical Exam: System Normal Abnl Findings General [x] [] Well nourished, appears well Skin [x] [] Warm and dry Neck [x] [] No thyromegaly, no masses, trachea midline Lymph Nodes [x] [] No cervical lymphadenopathy Lungs [x] [] Normal respiratory effort, clear to auscultation bilaterally Cardiovascular [x] [] Regular rate and rhythm, no murmurs Extremities [x] [] Warm, no edema, full ROM Neuro [x] [] Motor intact, voice normal Psych [x] [] Normal mood and affect; responds to questions appropriately Procedures performed this visit: Thyroid, Parathyroid and Cervical Ultrasound I performed a thyroid, parathyroid and cervical ultrasound at the time of the clinic visit today using the 12 mHz linear ultrasound transducer. The thyroid, parathyroid and central and bilateral lateral neck lymph node basins were evaluated. The findings include: Thyroid Isthmus: Thickness: 0.33 cm Nodules: none Right lobe: Lobe: 4.04 x 1.14 x 1.09 cm Nodules: heterogeneous, consistent with history of hypothyroidism Left lobe: Lobe: 3.10 x 1.10 x 1.26 cm Nodules: Heterogeneous, consistent with history of hypothyroidism. There is also a well-circumscribed hypoechoic nodule vs. pseudonodule with no calcifications and no/low vascularity In the right lower parathyroid location is a hypoechoic nodule measuring 1.12 x0.65 x 0.83cm Cervical lymph nodes Central neck: Normal ultrasonographic appearing lymph nodes Right lateral neck: Normal ultrasonographic appearing lymph nodes Left lateral neck: Normal ultrasonographic appearing lymph nodes Assessment and Plan: Ms. Pavithra Talavera is a 56 y.o. year old female with symptomatic biochemical primary hyperparathyroidism and a history of nephrolithiasis and markedly elevated urinary calcium. Localization ultrasound indicates a right lower parathyroid abnormality. We discussed the typical work up and management of primary hyperparathyroidism. I therefore recommended minimally invasive parathyroidectomy with intraoperative parathyroid hormone monitoring. If IOPTH levels do not decrease appropriately, we will proceed with a bilateral exploration. I discussed the risks of parathyroidectomy with the patient inc luding, but not limited to, nerve injury resulting in voice changes or hoarseness of voice, low calcium related to removal of parathyroid tissue, bleeding which may require reoperation, infection andcomplications related to anesthesia. She confirmed understanding of these risks and consent was obtained today. Surgery will be scheduled for the soonest mutually convenient date. [facility] Data Patient Characteristics Body mass index is 45.84 kg/m??. Prior neck irradiation: no Prior anterior neck surgery: no Pre-operative laryngoscopy: no Anti-coagulation meds (warfarin, heparin, oral thrombin or factor Xa inhibitors): no Plan to hold for surgery: no Anti-platelet meds (aspirin, clopidogrel): no Plan to hold for surgery: no Disease Characteristics Primary Pre-Operative Diagnosis: sporadic primary hyperparathyroidism Persistent/Recurrent Hyperparathyroidism: No Calcium: high 24-hour Urine calcium: high GFR decreased: No Ionized calcium: not examined PTH:high [id number] D: low Subjective Symptoms: yes Objective Symptoms: yes Imaging Studies: Localization studies performed: yes Localization study type: ultrasound Ultrasound result: Localized single gland with high confidence documented in this encounter Plan of Treatment Scheduled Referrals Name Type Priority Associated Diagnoses Orde r Schedule Referral to General Surgery Outpatient Referral Routine Primary hyperparathyroidism Ordered: 03/08/2021 documented as of this encounter Visit Diagnoses Diagnosis Hyperparathyroidism, primary Primary hyperparathyroidism documented in this encounter Care Teams Manager Personnel Selection Relationship Specialty Start Date End Date Diana Torres APRN [address] [place] [id number] PCP - General Family Medicine 02/21/21 documented as of this encounter
--- OUTSIDE RECORDS SUMMARY | 2024-01-06 11:51 | XMS_ITS | Encounter Summary ---
Author Organization [facility] Address [address] [place] [address] Care Team Providers Care Rack Maker Name Role Phone Mariusz Arroyo MD Primary Care Provider [phone] Encounter Details Date Type Department Care Team (Late st Contact Info) Description 04/02/2004 Results Only [facility] [address] [place] [address] Unknown, Provider, Social History Tobacco Use Types Packs/Day Years Used Date Smoking Tobacco: Never Assessed Sex and Gender Information Value Date Recorded Sex Assigned at Not on file Gender Identity Not on file Sexual Orientation Not on file documented as of this encounter Plan of Treatment Not on file documented as of this encounter Procedures Procedure Name Priority Date/Time Associated Diagnosis Comments OVA/PARASITE EXAM Routine 04/02/2004 20: 56 EST documented in this encounter Results * OVA/PARASITE EXAM (04/02/2004 20:56 EST) Specimen Description Feces [facility] Result No ova and parasites seen. (If Cryptosporidium, Cyclospora, or microsporidium are suspected, specific tests must be requested.) [facility] Report Status Final [id number] [facility] 04/02/2004 20:5 6 EST 04/02/2004 20:56 EST Provider Unknown MICROBIOLOGY - GENER AL ORDERABLES [facility] [address] [place] [address] documented in this encounter Visit Diagnoses Not on filedocumented in this encounter Care Teams Rack Maker Relationship Specialty Start Date End Date Mariusz Arroyo MD [address] [place] [address] PCP - General 06/27/09 documented as of this encounter
--- OUTSIDE RECORDS SUMMARY | 2024-01-06 11:51 | XMS_ITS | Encounter Summary ---
Author Organization [facility] Address [address] [place] [address] Care Team Providers Care Barrel Roller Operator Name Role Phone Mariusz Arroyo MD Primary Care Provider [phone] Encounter Details Date Type Department Care Team (Late st Contact Info) Description 07/04/2021 Lab Requisition [facility] Pathology & Laboratory Medicine - [address] [address] Outr Resulting Lab, Provider Social History Tobacco [...] Date/Time Associated Diagnosis Comments PTH INTACT Routine 07/04/2021 12:45 EDT documented in this encounter Results * PTH INTACT (07/04/2021 12:45 EDT) Intact PTH 20 19 - 88 pg/mL 07/05/2021 8:58 EDT [facility] Blood VENOUS BLOOD / Unknown 07/04/2021 12:45 EDT 07/04/2021 21:53 EDT Provider Outr Resulting Lab CHEMISTRY & BLOOD GAS ORDERABLES [facility] [address] [place] [address] documented in this encounter Visit Diagnoses Not on filedocumented in this encounter Care Teams Barrel Roller Operator Relationship Specialty Start Date End Date Mariusz Arroyo MD [address] [place] [address] PCP - General 06/27/09 documented as of this encounter
--- OUTSIDE RECORDS SUMMARY | 2024-01-06 11:51 | XMS_ITS | Encounter Summary ---
Author Organization [facility] Address [address] [place] [address] Care Team Providers Care Pattern Drafter Name Role Phone Mariusz Arroyo MD Primary Care Provider [phone] Encounter Details Date Type Department Care Team (Late st Contact Info) Description 01/07/2022 Lab Requisition [facility] Pathology & Laboratory Medicine - [address] [address] Outr Resulting Lab, Provider Social History Tobacco [...] Date/Time Associated Diagnosis Comments PTH INTACT Routine 01/07/2022 11:13 EDT documented in this encounter Results * PTH INTACT (01/07/2022 11:13 EDT) Intact PTH 32 19 - 88 pg/mL 01/08/2022 10:14 EDT [facility] Blood VENOUS BLOOD / Unknown 01/07/2022 11:13 EDT 01/07/2022 21:50 EDT Provider Outr Resulting Lab CHEMISTRY & BLOOD GAS ORDERABLES [facility] [address] [place] [address] documented in this encounter Visit Diagnoses Not on filedocumented in this encounter Care Teams Pattern Drafter Relationship Specialty Start Date End Date Mariusz Arroyo MD [address] [place] [address] PCP - General 06/27/09 documented as of this encounter
--- OUTSIDE RECORDS SUMMARY | 2024-01-06 11:51 | XMS_ITS | Encounter Summary ---
Author Organization [facility] Address [address] [place] [address] Care Team Providers Care Information Assoc Name Role Phone Mariusz Arroyo MD Primary Care Provider [phone] Encounter Details Date Type Department Care Team (Late st Contact Info) Description 11/20/2022 Lab Requisition [facility] Pathology & Laboratory Medicine - [address] [address] Outr Resulting Lab, Provider Social History Tobacco [...] Procedure Name Priority Date/Time Associated Diagnosis Comments RHEUMATOID FACTOR Routine 11/19/2022 11: 30 EDT ANTI NUCLEAR AB (ADDI), IFA Routine 11/19/2022 11:30 EDT documented in this encounter Results * RHEUMATOID FACTOR (11/19/2022 11:30 EDT) Rheumatoid Factor <8.6 <12.0 IU/mL 11/20/2022 17:48 EDT [facility] Blood VENOUS BLOOD / Unknown 11/19/2022 11:30 EDT 11/20/2022 17:27 EDT Provider Outr Resulting Lab CHEMISTRY & BLOOD GAS ORDERABLES Performing Organization Address [facility] Co de Phone Number [facility] [address] [place] [address] * (ABNORMAL) ANTI NUCLEAR AB (ADDI), IFA (11/19/2022 11:30 EDT) ADDI Interpretation Positive(A) Negative 11/21/2022 14:53 EDT [facility] ADDI Titer and Pattern 1 1:80 Speckled 11/21/2022 14:53 EDT [facility] Blood VENOUS BLOOD / Unknown 11/19/2022 11:30 EDT 11/20/2022 17:27 EDT Narrative [facility] - 11/21/2022 14:53 EDT Results were obtained with the INOVA NOVA Lite HEp-2 ADDI Kit by indirect immunofluorescence. Provider Outr Resulting Lab IMMUNOLOGY A ND SEROLOGY ORDERABLES Performing Organization Address [facility] Co de Phone Number [facility] [address] [place] [address] documented in this encounter Visit Diagnoses Not on filedocumented in this encounter Care Teams Information Assoc Relationship Specialty Start Date End Date Mariusz Arroyo MD [address] [place] [address] PCP - General 06/27/09 documented as of this encounter
--- OUTSIDE RECORDS SUMMARY | 2024-01-06 11:51 | XMS_ITS | Encounter Summary ---
[place] [address] Care Team Providers Care Assistant Store Director Name Role Phone Diana Torres APRN Primary Care Provider [phone] Encounter Details Date Type Department Care Team (Late st Contact Info) Description 08/29/2021 External Results [place] [id number] Social History Tobacco Use Types Packs/Day Years [...] Date/Time Associated Diagnosis Comments LAB SCAN Routine 08/29/2021 documented in this encounter Results * Scan Doc: Lab (08/29/2021) Historical Provider MD ESQUEDA MGR SCAN EX T ORDR/RSLT documented in this encounter Visit Diagnoses Not on filedocumented in this encounter Care Teams Assistant Store Director Relationship Specialty Start Date End Date Diana Torres APRN [address] [place] [id number] PCP - General Family Medicine 02/21/21 documented as of this encounter
--- OUTSIDE RECORDS SUMMARY | 2024-01-06 11:51 | XMS_ITS | Encounter Summary ---
Author Organization [facility] Address [address] [place] [address] Care Team Providers Care Construction Project Coordinator Name Role Phone Mariusz Arroyo MD Primary Care Provider [phone] Encounter Details Date Type Department Care Team (Late st Contact Info) Description 12/31/2021 Lab Requisition [facility] Pathology & Laboratory Medicine - [address] [address] Outr Resulting Lab, Provider Social History Tobacco [...] Date/Time Associated Diagnosis Comments PTH INTACT Routine 12/31/2021 9:59 EDT documented in this encounter Results * PTH INTACT (12/31/2021 9:59 EDT) Intact PTH 27 19 - 88 pg/mL 01/01/2022 9:24 EDT [facility] Blood VENOUS BLOOD / Unknown 12/31/2021 9:59 EDT 12/31/2021 20:48 EDT Provider Outr Resulting Lab CHEMISTRY & BLOOD GAS ORDERABLES [facility] [address] [place] [address] documented in this encounter Visit Diagnoses Not on filedocumented in this encounter Care Teams Construction Project Coordinator Relationship Specialty Start Date End Date Mariusz Arroyo MD [address] [place] [address] PCP - General 06/27/09 documented as of this encounter
[2024-01-12 11:45] LABS: 2-OH-Ethyl-Flurazepam Negative ng/mL (Cutoff: 10); 7-NH-Clonazepam Negative ng/mL (Cutoff: 10); 7-NH-Flunitrazepam Negative ng/mL (Cutoff: 10); Alpha OH-Alprazolam Negative ng/mL (Cutoff: 10); Alpha-OH Midazolam Negative ng/mL (Cutoff: 10); Alpha-OH-Triazolam Negative ng/mL (Cutoff: 10); Alprazolam Negative ng/mL (Cutoff: 10); Benzodiazepines Interpretation Positive.; Chlordiazepoxide Negative ng/mL (Cutoff: 10); Clobazam Negative ng/mL (Cutoff: 10); Clonazepam Negative ng/mL (Cutoff: 10); Diazepam Negative ng/mL (Cutoff: 10); Flurazepam Negative ng/mL (Cutoff: 10); Lorazepam 250 ng/mL (Cutoff: 10); Midazolam Negative ng/mL (Cutoff: 10); N-Desmethylclobazam Negative ng/mL (Cutoff: 10); Prazepam Negative ng/mL (Cutoff: 10); Temazepam Negative ng/mL (Cutoff: 10); Triazolam Negative ng/mL (Cutoff: 10); Zolpidem Carboxylic acid Negative ng/mL (Cutoff: 10)
== END 2024-01-06 11:49 | disposition home or self-care (01) ==
LOC: NCHCN 11:48
PROVIDERS: PCP Nurse Practitioner Family; Visit Provider Nurse Practitioner Family
DX: F41.9 Anxiety disorder, unspecified (principal); Z79.899 Other long term (current) drug therapy
CPT/HCPCS: 80346